=== PATIENT | male | born 1965 | race African-American/Black ===

== ENCOUNTER 2019-09-09 16:53 | Inpatient (IN) ==
--- NOTE | 2019-09-09 18:26 | PROVIDER DOCUMENTATION ---
HPI-Respiratory General - General Chief Complaint: Shortness of Breath Stated Complaint: TROUBLE BREATHING Time Seen by Provider: 09/09/19 17:20 Source: patient Allergies/Adverse Reactions: Patient Allergies Allergy/AdvReac Type Severity Reaction Status Date / Time shellfish derived Allergy SWELLING Verified 09/09/19 18:54 Home Medications: Home Medication List Medication Instructions Recorded Confirmed Last Taken Type Aspirin 81 mg PO DAILY 03/17/19 09/09/19 09/09/19 History Carvedilol [Coreg] 25 mg PO BID 03/17/19 09/09/19 09/09/19 History Losartan [Cozaar] 25 mg PO BID 03/17/19 09/09/19 09/09/19 History Furosemide [Lasix] 40 mg PO DAILY 06/14/19 09/09/19 09/09/19 History Calcium Carbonate/Vitamin D3 1 tab PO DAILY 06/29/19 09/09/19 09/09/19 History [Calcium 600 + Vit D Tablet] Loperamide HCl [Imodium A-D] 2 mg PO DIRECTED 06/29/19 09/09/19 09/09/19 History Diphenoxylate/Atropine [Lomotil] 1 ea PO Q8HR PRN 07/14/19 09/09/19 09/09/19 History Benzonatate [Tessalon Perle] 100 mg PO Q6H PRN PRN 08/20/19 08/20/19 Unknown Hi story Levofloxacin [Levaquin] 500 mg PO DAILY 08/20/19 09/09/19 09/09/19 History Tiotropium Br/Olodaterol HCl 1 inhaler INH BID 09/09/19 09/09/19 09/09/19 History [Stiolto Respimat Inhal [place]] - History of Present Illness-Resp Nature of Presenting Problem: Patient c/o shortness of breath; went to lung doctor and sat there was in the 80s and is suppose to be on oxygen but doesn't have insurance and cannot afford it. Was told that he only has 45% lung function. c/o productive cough; coughing up blood. cancer patient; just finished chemo. patient stated he had history of CHF Quality of Pain: reports: tightness Severity in ED: reports: moderate Onset/Duration: reports: gradual, other (chronic) Timing: reports: still present Exposure: reports: unknown cause Cough Quality/Degree: reports: moderate, productive cough, blood streaked sputum Episode Frequency: chronic episodes Current Respiratory Medication Therapy: Initiated see nurses note Modifying Factors: improves with: exertion, coughing Associated Symptoms: reports: cough, shortness of breath, short of breath Similar Symptoms Previously?: Yes Review of Systems - Adult - REVIEW OF SYSTEMS - ADULT Constitutional: reports: fatique. denies: fever Eyes: reports: no symptoms reported Ears, Nose, Mouth & Throat: reports: no symptoms reported Cardiovascular: reports: see HPI Respiratory: reports: see HPI, cough, dyspnea on exertion, shortness of breath Gastrointestinal: reports: no symptoms reported Genitourinary: reports: no symptoms reported Musculoskeletal: reports: no symptoms reported Integumentary: reports: no symptoms reported Neurological: reports: no symptoms reported Psychiatric: reports: no symptoms reported Endocrine: reports: no symptoms reported Hematologic/Lymphatic: reports: no symptoms reported Allergic/Immunologic: reports: no symptoms reported Past History - Adult - PAST MEDICAL HISTORY-ADULT Review of Records: reports: Nursing Assessment Review, Medications Reviewed, Social history reviewed & non-contributory. Major Childhood Illnesses: reports: denies history Cardiovascular: reports: CHF, HTN Respiratory: reports: sleep apnea Gastrointestinal: reports: denies history Obstetrical/Gynecological: reports: denies history Genitourinary: reports: denies history Musculoskeletal: reports: orthopedic injury Neurological: reports: denies history Endocrine/Immune: reports: denies history Other Conditions: reports: denies history - PRIOR SURGERIES/PROCEDURES Surgical/Procedure History: reports: none - IMMUNIZATION STATUS Childhood Immunizations: See Nurse Assessment Flu Vaccine: See Nurse Assessment - FAMILY HISTORY Family History: reviewed, not pertinent Physical Exam-General - PHYSICAL EXAM-ADULT Initial Vital Signs Reviewed: Yes - CONSTITUTIONAL General Appearance: alert, mild distress, obese - EYES Eyes: PERRL/EOMI, pink conjunctivae - HEAD, EARS, NOSE, MOUTH & THROAT HENMT: normocephalic/atraumatic, moist mucous membranes - NECK Neck: negative: C-spine tenderness, lymphadenopathy - RESPIRATORY Respiratory: decreased breath sounds, rhonchi, other (distant breath sounds, rhonchi). negative: respiratory distress, wheezing - CARDIOVASCULAR Cardiovascular: regular rate, rhythm - GASTROINTESTINAL (ABDOMEN) Abdominal Exam: normal bowel sounds, non tender, soft - MUSCULOSKELETAL Back Exam: no CVA tenderness, no vertebral tenderness Extremity: swelling. negative: calf tenderness, tenderness - SKIN Integumentary: warm/dry. negative: tenderness, zoster-like rash - NEUROLOGIC Neurologic: grossly normal, no motor/sensory deficits - PSYCHIATRIC Psych/Mental Status: normal mood/affect Progress - PLAN OF CARE/RESULTS Progress/Plan/Lab Results: Laboratory Results - last 24 hr 09/09/19 09/09/19 09/09/19 17:19 18:38 18:38 WBC RBC Hgb Hct MCV MCH MCHC RDW Std Deviation Plt Count MPV Immature Gran % (Auto) Neut % (Auto) Lymph % (Auto) [place] % (Auto) Eos % (Auto) Baso % (Auto) Immature Gran # (Auto) Neut # (Auto) Lymph # (Auto) [place] # (Auto) Eos # (Auto) Baso # (Auto) PT INR PTT (Actin FS) Specimen Type Sample Site pH pCO2 pO2 HCO3 Base Excess Oxyhemoglobin ABG O2 Sat (Calculated) ABG O2 Saturation ABG Carboxyhemoglobin ABG Methemoglobin A-a O2 Difference Total Hemoglobin Lactate Liter Flow FiO2 % Sodium Potassium Chloride Carbon Dioxide Anion Gap BUN Creatinine Estimated GFR/1.73 m2 BUN/Creatinine Ratio Glucose Calculated Osmolality Calcium Total Bilirubin AST ALT Alkaline Phosphatase Creatine Kinase 108 Troponin T < 0.010 [id number]-[id number] Pept Total Protein Albumin Globulin Albumin/Globulin Ratio Amylase 116 Lipase Plasma Lactate Urine Source CLEAN CATCH Urine Color YELLOW Urine Clarity CLEAR Urine pH 6.5 Ur Specific [place] 1.000 Urine Protein NEGATIVE Urine Ketones NEGATIVE Urine Blood NEGATIVE Urine Nitrite NEGATIVE Urine Bilirubin NEGATIVE Urine Urobilinogen NORMAL Urine Microscopic RBC Not Reportable Urine WBC NEGATIVE Ur Epithelial Cells <10 Urine Crystals NONE SEEN Urine Bacteria 1+ Urine Casts NONE SEEN Urine Yeast NONE SEEN Urine Glucose NEGATIVE 09/09/19 09/09/19 09/09/19 18:38 18:38 18:38 WBC 11.71 H RBC 3.03 L Hgb 8.3 L Hct 27.7 L MCV 91.4 MCH 27.4 MCHC 30.0 L RDW Std Deviation 17.7 H Plt Count 176 MPV 9.5 Immature Gran % (Auto) 0.1 Neut % (Auto) 81.7 H Lymph % (Auto) 8.6 L [place] % (Auto) 7.3 Eos % (Auto) 2.1 Baso % (Auto) 0.2 Immature Gran # (Auto) 0.01 Neut # (Auto) 9.57 H Lymph # (Auto) 1.01 L [place] # (Auto) 0.85 H Eos # (Auto) 0.25 Baso # (Auto) 0.02 PT INR PTT (Actin FS) Specimen Type Sample Site pH pCO2 pO2 HCO3 Base Excess Oxyhemoglobin ABG O2 Sat (Calculated) ABG O2 Saturation ABG Carboxyhemoglobin ABG Methemoglobin A-a O2 Difference Total Hemoglobin Lactate Liter Flow FiO2 % Sodium 136 Potassium 4.0 Chloride 101 Carbon Dioxide 23 L Anion Gap 12 BUN 17 Creatinine 0.9 Estimated GFR/1.73 m2 > 60 BUN/Creatinine Ratio 19 Glucose 97 Calculated Osmolality 273 Calcium 9.3 Total Bilirubin 1.30 H AST 37 H ALT 9 L Alkaline Phosphatase 73 Creatine Kinase Troponin T [id number]-Qgvijmmhkwk Pept 2610 H Total Protein 7.4 Albumin 3.7 Globulin 4.0 Albumin/Globulin Ratio 1.0 Amylase Lipase 12 L Plasma Lactate Urine Source Urine Color Urine Clarity Urine pH Ur Specific [place] Urine Protein Urine Ketones Urine Blood Urine Nitrite Urine Bilirubin Urine Urobilinogen Urine Microscopic RBC Urine WBC Ur Epithelial Cells Urine Crystals Urine Bacteria Urine Casts Urine Yeast Urine Glucose 09/09/19 09/09/19 09/09/19 18:38 18:38 21:49 WBC RBC Hgb Hct MCV MCH MCHC RDW Std Deviation Plt Count MPV Immature Gran % (Auto) Neut % (Auto) Lymph % (Auto) [place] % (Auto) Eos % (Auto) Baso % (Auto) Immature Gran # (Auto) Neut # (Auto) Lymph # (Auto) [place] # (Auto) Eos # (Auto) Baso # (Auto) PT 14.2 INR 1.05 PTT (Actin FS) 36.1 Specimen Type ARTERIAL Sample Site L RADIAL pH 7.49 H pCO2 37 pO2 49 L* HCO3 28.4 H Base Excess 4.6 H Oxyhemoglobin 86.4 L* ABG O2 Sat (Calculated) 10.5 L ABG O2 Saturation 91.9 L ABG Carboxyhemoglobin 5.00 H ABG Methemoglobin 1.1 A-a O2 Difference 119.0 Total Hemoglobin 8.6 L Lactate 1.10 Liter Flow 2.5 FiO2 % 30.0 Sodium Potassium Chloride Carbon Dioxide Anion Gap BUN Creatinine Estimated GFR/1.73 m2 BUN/Creatinine Ratio Glucose Calculated Osmolality Calcium Total Bilirubin AST ALT Alkaline Phosphatase Creatine Kinase Troponin T [id number] Pept Total Protein Albumin Globulin Albumin/Globulin Ratio Amylase Lipase Plasma Lactate 1.1 Urine Source Urine Color Urine Clarity Urine pH Ur Specific [place] Urine Protein Urine Ketones Urine Blood Urine Nitrite Urine Bilirubin Urine Urobilinogen Urine Microscopic RBC Urine WBC Ur Epithelial Cells Urine Crystals Urine Bacteria Urine Casts Urine Yeast Urine Glucose Orders Category Date Time Status Admit - [facility] Routine AdmDCTranf 09/09/19 22:22 Active Saline Loc DIRECTED Care 09/09/19 18:19 Active NPO Diet 09/09/19 18:19 Active CHEST-PORTABLE [RAD] Stat Exams 09/09/19 18:20 Completed CTA [CT ANGIOGRM PULMONARY ARTERIES] [CT] Stat Exams 09/09/19 19:59 Completed ABG [RESP] Routine Lab 09/09/19 21:49 Results AMYLASE [CHEM] Stat Lab 09/09/19 18:38 Completed BLOOD CULTURE [BLDCUL] Stat Lab 09/09/19 18:38 Results BNP [PRO B-NATRIURETIC PEPTIDE] Stat Lab 09/09/19 18:38 Completed CBC WITH ELECTRONIC DIFF [HEME] Stat Lab 09/09/19 18:38 Completed CK PROFILE [SP CHEM] Stat Lab 09/09/19 18:38 Completed COMPREHENSIVE METABOLIC PANEL [CHEM] Stat Lab 09/09/19 18:38 Completed LACTATE, PLASMA [CHEM] Q3H Lab 09/09/19 18:38 Completed LIPASE [CHEM] Stat Lab 09/09/19 18:38 Completed PROTIME WITH INR [COAG] Stat Lab 09/09/19 18:38 Completed PTT [COAG] Stat Lab 09/09/19 18:38 Completed TROPONIN T Stat Lab 09/09/19 18:[address] W/POSS RFLX CULT [URINALYSIS] Stat Lab 09/09/19 17:19 Completed Furosemide [Lasix] Med 09/09/19 21:53 Discontinued 40 mg IV NOW ONE Piperacillin/Tazobactam [Zosyn] 3.375 gm Med 09/09/19 21:53 Discontinued 0.9% Sodium Chloride Inj [Ns] 50 ml IV NOW Vancomycin 1 gm/Ns Med 09/09/19 21:53 Discontinued 1 gm in 250 ml IV NOW Transfer/Admit Order [TRANSFER] Routine Transfer 09/09/19 22:23 Completed Result Diagrams: 09/09/19 18:38 09/09/19 18:38 - CONSULTS/PCP/HOSPITALIST Notification #1 *Consult/PCP/Hospitalist*: Dr Hanson Reason/Comments: asked that pt be transfered to General #2 Consult: Dr Jauregui Time Discussed: 21:57 Reason/Comments: to ICU Consult Disposition: Admit - CHANGE OF SHIFT REPORT (ED Provider) 1 Report Given and Care Transferred to:: Dr Kurtz Time of Transfer: 20:00 Items Pending: CT/MRI Results (CTA and pending admission) Departure - Departure Date of Disposition Decision: 09/09/19 Time of Disposition Decision: 21:58 DIAGNOSIS: ARDS (adult respiratory distress syndrome), Pulmonary edema, CHF (congestive heart failure), Dyspnea Disposition: ADMITTED INPATIENT 09 Certified Medical Emergency: Emergent Condition: Serious - Critical Care Note This patient required my direct & personal management of CC.: Yes Total Time (mins): 35 Critical Care Statement: This patient required my direct personal management to treat or rule out processes, the absence of which, could potentiallly result in sudden, clinically significant life or limb threatening deterioration. Attestation - Physician/ ELLIOTT Attestation Patient care was provided by Advanced Practice Provider:: No The physician spent face to face time with patient:: Yes Advanced Practice Provider documentation review:: Supervising physician onsite and consulted in the evaluation and care of this patient. The physician did have a face to face encounter with the patient.
[2019-09-09 19:10] LABS: BASO# 0.02 X1000 (0.0-0.2); BASO% 0.2 % (0.0-0.8); EOS# 0.25 X1000 (0.0-0.7); EOS% 2.1 % (0.0-10.0); HEMATOCRIT 27.7 % (42.0-52.0); HEMOGLOBIN 8.3 g/dL (14.0-18.0); IMM GRAN# 0.01 X1000 (0.0-0.04); IMM GRAN% 0.1 % (0.0-0.5); LYMPH# 1.01 X1000 (1.2-3.4); LYMPH% 8.6 % (20.5-51.1); MCH 27.4 PG (27-31); MCV 91.4 FL (81-99); MONO# 0.85 X1000 (0.11-0.59); MONO% 7.3 % (1.7-9.3); MPV 9.5 FL (7.4-10.4); NEUT# 9.57 X1000 (1.4-6.5); NEUT% 81.7 % (42.2-75.2); PLT 176 X1000 (130-400); RBC 3.03 XMIL (4.7-6.1); RDW 17.7 % (11.5-14.5); WBC 11.71 X1000 (4.8-10.8)
--- NOTE | 2019-09-09 19:34 | Diag Imaging Result Doc PS360 ---
EXAM: CHEST-PORTABLE INDICATION: shortness of breath TECHNIQUE: One view COMPARISON: 08/19/2019 FINDINGS: There is severe bilateral airspace consolidations throughout both lungs but most significant at the mid and lower lung zones. This is worse than on the previous study. There is no large pleural fluid collection or pneumothorax. Cardiac silhouette is stable. IMPRESSION: Severe bilateral airspace consolidations indicating pneumonia +/- edema. Electronically signed by Terry Jackson 09/09/2019 7:32 PM
[2019-09-09 19:36] LABS: BILIRUBIN URINE NEGATIVE (NEGATIVE); BLOOD URINE NEGATIVE (NEGATIVE); CLARITY CLEAR (CLEAR); COLOR YELLOW; GLUCOSE URINE NEGATIVE (NEGATIVE); KETONE URINE NEGATIVE (NEGATIVE); LEUKOCYTES URINE NEGATIVE (NEGATIVE); NITRITE URINE NEGATIVE (NEGATIVE); PH URINE 6.5; PROTEIN URINE NEGATIVE (NEGATIVE); UROBILINOGEN URINE NORMAL
[2019-09-09 19:39] LABS: URINE BACTERIA 1+ /HFP; URINE CAST NONE SEEN /LPF; URINE CRYSTAL NONE SEEN /HPF; URINE EPITHELIAL CELLS <10 /HPF (<10); URINE SOURCE CLEAN CATCH; URINE YEAST NONE SEEN /HPF
[2019-09-09 19:47] LABS: AGAP 12; ALBUMIN 3.7 g/dL (3.5-5.0); ALKALINE PHOSPHATASE 73 U/L (32-122); BUN 17 mg/dL (8-22); CALCIUM 9.3 mg/dL (8.8-10.2); CHLORIDE 101 mmol/L (98-107); COSMO 273; CREATININE 0.9 mg/dL (0.7-1.2); ESTIMATED GFR > 60; GLUCOSE 97 mg/dL (70-104); GOT 37 U/L (10-34); GPT 9 U/L (10-44); LIPASE 12 U/L (13-60); SODIUM 136 mmol/L (136-145); TCO2 23 mmol/L (25-35); TOTAL PROTEIN 7.4 g/dL (6.3-8.3)
[2019-09-09 19:48] LABS: AMYLASE 116 U/L (20-200); CK PROFILE 108 U/L (24-204)
[2019-09-09 20:43] LABS: INR 1.05; PROTIME 14.2 Seconds (11.0-16.0); PTT 36.1 Seconds (22.3-41.8)
--- NOTE | 2019-09-09 21:17 | Diag Imaging Result Doc PS360 ---
EXAM: CT ANGIOGRM PULMONARY ARTERIES INDICATION: rule out PE TECHNIQUE: This exam was performed using automated exposure control, adjustment of mA or kV according to patient size, and/or use of iterative reconstruction technique. Thin section axial images and 3-D MIPS were obtained. COMPARISON: 08/26/2019 FINDINGS: There is no evidence of pulmonary embolism. There is no evidence of aortic dissection or aneurysm. There is cardiomegaly. There are calcified mediastinal lymph nodes indicating prior granulomatous disease. No new lymphadenopathy is appreciated. There are severe diffuse airspace consolidations bilaterally throughout both lungs with a mid and lower lung zone predominance. This was also seen on the previous study. However, it has worsened, especially on the left. ARDS should be considered. There is trace pleural fluid on the right. There is no pneumothorax. Limited views of the upper abdomen are essentially unremarkable. IMPRESSION: 1.Severe diffuse airspace consolidations bilaterally that have worsened since the previous study. Consider ARDS. 2.No evidence of pulmonary embolism. Electronically signed by Terry Jackson 09/09/2019 9:15 PM
[2019-09-09] MEDS ORDERED: LASIX IV ONE (21:53)
[2019-09-09] MEDS ORDERED: VANCOMYCIN 1 GM/NS 1 GM/250 ML IVPB IV ONE (21:53)
[2019-09-09] MEDS ORDERED: ZOSYN 3.375 GM in NS 50 ML IV ONE (21:53)
[2019-09-09 22:11] LABS: BE 4.6 mmoll (-3.0-3.0); BLOOD TYPE ARTERIAL; HCO3-(ACT) 28.4 mmoll (20.0-26.0); METHB 1.1 % (0.0-1.5); O2(CT) 10.5 mL/dL (15.0-23.0); PCO2(98.6) 37 mmHg (35-45); PO2(98.6) 49 mmHg (60-100); SAMPLE BLOOD; SAO2 91.9 % (95.0-100.0); THB 8.6 g/dL (11.5-17.4); pH(98.6) 7.49 (7.35-7.45)
[2019-09-09 22:16] LABS: O2HB 86.4 % (95.0-99.0)
[2019-09-09] MEDS ORDERED: TYLENOL ONE (23:46)
[2019-09-09] MEDS ORDERED: TYLENOL PO ONE (23:48)
[2019-09-10] MEDS ORDERED: TYLENOL PO PRN (01:22)
[2019-09-10] MEDS ORDERED: ZOFRAN IV PRN (01:22)
[2019-09-10] MEDS ORDERED: VANCOMYCIN IV PER PHARMACY MISC SCH (01:30)
[2019-09-10] MEDS: SOLU-MEDROL IV SCH ×2 (02:15→08:47)
[2019-09-10] MEDS: DUONEB (A & A) INH SCH ×6 (03:22→23:18)
[2019-09-10] MEDS ORDERED: VANCOMYCIN 1 GM/NS 1 GM/250 ML IVPB IV ONE (03:30)
[2019-09-10] MEDS: ZOSYN 3.375 GM in NS 50 ML IV SCH ×4 (03:53→21:30)
--- NOTE | 2019-09-10 04:41 | HISTORY AND PHYSICAL ---
PRIMARY CARE PHYSICIAN: None. CHIEF COMPLAINT: Shortness of breath and coughing up blood. HISTORY OF PRESENTING ILLNESS: A 53-year-old male with a history of testicular cancer, CHF, hypertension, who initially had presented to [facility] due to complaint shortness of breath that has been going on for several weeks. The patient states that he was also coughing up blood. The patient also states that he had seen a obstetrics scrub nurse and had some spirometry done recently but he did know the results. He was evaluated in the ED there. He had imaging done which did show severe diffuse airspace consolidations bilaterally with consideration of possible ARDS. Due to lack of subspecialist care there, he was transferred to [facility] for further management. At the time of my examination, patient states that he is still short of breath. He denied any chest pain, fever, chills or any weight changes, but complained that he was coughing up blood and short of breath. PAST MEDICAL HISTORY: Includes testicular cancer, CHF, hypertension. PAST SURGICAL HISTORY: Left knee surgery, left testicle removed. ALLERGIES: Shellfish. CURRENT MEDICATIONS: Aspirin 81 mg p.o. daily, carvedilol 25 mg p.o. b.i.d., Lasix 40 mg p.o. daily, losartan 25 mg p.o. b.i.d. SOCIAL HISTORY: He is a former smoker. Denies any history of alcohol or illicit drug use. FAMILY HISTORY: No history of coronary disease. REVIEW OF SYSTEMS: Fourteen point review of system as listed in HPI. Other systems negative. PHYSICAL EXAMINATION: GENERAL: The patient is resting more comfortably. VITAL SIGNS: Temperature 97.9 degrees, pulse 101, respirations 24, blood pressure 153/111. HEENT: Atraumatic, normocephalic. Extraocular movements intact. PERRLA. NECK: No masses. CHEST: Rhonchi. CARDIOVASCULAR: Regular rate and rhythm. ABDOMEN: Soft. Positive bowel sounds. EXTREMITIES: Trace edema. NEUROLOGIC: He is awake, alert, oriented x3. GENITOURINARY: No bladder distention. SKIN: Warm. LABORATORIES AND STUDIES: WBC 11.71, hemoglobin 8.3, hematocrit 27.7, platelets 176,000. Blood gas shows a pH of 7.49, PO2 of 49. Sodium 136, potassium 4.0, chloride 101, CO2 is 23, BUN is 17, creatinine 0.9, glucose 97. ProBNP is 2610. Plasma lactate 1.1. Pulmonary arteriogram shows severe diffuse airspace consolidation with consideration of ARDS. No evidence of pulmonary embolism. ASSESSMENT: This is a 53-year-old male with a history of testicular cancer, congestive heart failure, hypertension, who had presented to emergency department with several weeks history of worsening shortness of breath. The patient states that he was recently coughing up blood. He was initially evaluated at [facility] and then transferred to [facility] due to lack of subspecialist care. 1. Acute hypoxemic respiratory failure. 2. Suspected acute respiratory distress syndrome. 3. Chronic obstructive pulmonary disease. 4. Hemoptysis. 5. Congestive heart failure, unspecified. 6. Hypertension. PLAN: 1. The patient will be admitted to ICU. 2. We will continue with supplemental oxygen. 3. We will check blood cultures. Start patient on empiric antibiotics. 4. We will continue with DuoNebs. 5. Consult Pulmonology. 6. We will continue with gentle diuresis with Lasix. 7. We will monitor blood pressure closely. 8. We will put patient on DVT prophylaxis with SCDs. 9. We will continue to follow, and reassess and make further recommendation based on patient's clinical course. cc: Dale Jauregui MD
[2019-09-10] MEDS: COREG PO SCH ×2 (08:47→20:24)
[2019-09-10] MEDS ORDERED: ASPIRIN PO SCH (09:00)
[2019-09-10] MEDS ORDERED: COZAAR PO SCH (09:00)
[2019-09-10] MEDS ORDERED: LASIX IV SCH (10:00)
[2019-09-10] MEDS ORDERED: LASIX IV ONE (10:15)
[2019-09-10 10:46] LABS: HEMATOCRIT 29.9 % (42.0-52.0); HEMOGLOBIN 9.1 g/dL (14.0-18.0); LYMPH# 0.43 X1000 (1.2-3.4); LYMPH% 5.6 % (20.5-51.1); MCH 27.9 PG (27-31); MCHC 30.4 g/dL (33-37); MCV 91.7 FL (81-99); MONO# 0.06 X1000 (0.11-0.59); MONO% 0.8 % (1.7-9.3); MPV 9.2 FL (7.4-10.4); NEUT% 93.6 % (42.2-75.2); PLT 170 X1000 (130-400); RBC 3.26 XMIL (4.7-6.1); RDW 17.4 % (11.5-14.5); WBC 7.69 X1000 (4.8-10.8)
[2019-09-10 10:52] LABS: IRON SATURATION 10 %; TIBC 229 ug/dL; TOTAL IRON 22 ug/dL (53-167); UNBOUND IRON 207 ug/dL (112-346)
[2019-09-10] MEDS: VANCOMYCIN 2,000 MG in NS 500 ML IV SCH ×2 (10:59→23:52)
--- NOTE | 2019-09-10 11:09 | PROGRESS NOTE ---
DATE: 09/10/2019 INTERVAL HISTORY: Mr. Ayon was admitted for acute hypoxic respiratory failure and bilateral lung infiltrate. He states that he has also been having hemoptysis, last episode was day before yesterday. He had noticed some swelling of bilateral lower extremities as well. His shortness of breath has been progressively worsening since last few weeks. He denies being diagnosed with COPD. However, his pulmonary function test in May had restrictive physiology. Currently, he is feeling slightly better than he did yesterday. PHYSICAL EXAMINATION: Temperature 97.3 degrees, pulse 89, respiratory rate 20 blood pressure 139, 95, saturating 99% on 2 L nasal cannula. Not in any acute distress oral cavity is moist. He has bilateral adequate air entry. Inspiratory crackles in infrascapular region. S1, S2 normal. No murmur or gallop. Abdomen: Soft, nontender. No lower extremity edema. He is alert and oriented x3 labs. Input and output he has 700 mL output so far today. LABS: Repeat CBC is pending. BMP was essentially unremarkable. ASSESSMENT AND PLAN: 1. Acute hypoxic respiratory failure due to bilateral lung infiltrate. Differential being acute pulmonary edema versus pneumonia. 2. Acute systolic and diastolic congestive heart failure exacerbation. 3. Hemoptysis, which could be in the setting of bilateral pneumonia versus pulmonary edema for which I am holding his aspirin. 4. Active tobacco abuse. 5. Recently diagnosed testicular cancer with intra-abdominal lymphadenopathy, on chemotherapy. The last chemotherapy was 3 weeks ago. 6. Coronary artery disease. PLAN: 1. I will start patient on intravenous Lasix, albuterol ipratropium nebulization, intravenous antibiotics and follow up blood cultures, sputum culture and urine antigen. 2. I will continue patient on his home medications of beta mauro as well as losartan and will start back on aspirin once his hemoptysis is better for his history of coronary artery disease, which was managed medically as well as combined systolic and diastolic congestive heart failure. 3. Deep venous thrombosis prophylaxis, mechanical devices. DISPOSITION: I will continue to monitor patient in the intensive care unit for 24 hours. I will follow up with repeat ABG. Plan of care discussed with him. His questions were answered. cc: MD YFN Shahid
[2019-09-10 11:18] LABS: FERRITIN 1766 ng/mL (30-400)
[2019-09-10 11:23] LABS: BANDS 1 % (0-1); LYMPHS 4 % (21-51); SEGS 95 % (42-75)
--- NOTE | 2019-09-10 12:43 | EKG Report ---
Test Performed on : 09/10/2019 10:41:34 AM Test Reason : Evaluate for ST T changes Blood Pressure : / mmHG Vent. Rate : 085 BPM Atrial Rate : 085 BPM P-R Int : 210 ms QRS Dur : 098 ms QT Int : 414 ms P-R-T Axes : 039 -36 065 degrees QTc Int : 492 ms Sinus rhythm. with 1st degree AV block. Possible Left atrial enlargement Left axis deviation Nonspecific T wave abnormality Prolonged QT Abnormal ECG When compared with ECG of 17-MAR-2019 09:22, Criteria for Inferior infarct are no longer present Nonspecific T wave abnormality has replaced inverted T waves in Lateral leads Confirmed by Bob Ayers MD ([id number]) on 09/10/2019 3:08:09 PM
[2019-09-10] MEDS: LASIX IV SCH ×2 (15:55→21:30)
--- NOTE | 2019-09-10 17:01 | HEMO/ONC CONSULTATION ---
DATE: 09/10/2019 ADMITTING/REQUESTING PHYSICIAN: Dr. Dale Jauregui We appreciate this consult. CHIEF COMPLAINT: Testicular cancer. HISTORY OF PRESENT ILLNESS: Mr. Ayon is a 53-year-old, male, well known to Dr. 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 The patient's last CT of his chest and MRI revealed no evidence of disease. The patient presented to [facility] secondary to worsening shortness of breath and coughing up blood. Imaging revealed severe diffuse airspace consolidations bilaterally with possible capital ARDS. The patient was transferred to [facility] ICU for more acute care and we are consulted as the patient is well known to us. PAST MEDICAL HISTORY: 1. One congestive heart failure. 2. Hypertension. 3. Testicular cancer. PAST SURGICAL HISTORY: 1. Left knee surgery. 2. Left orchialgia me. SOCIAL HISTORY: The patient is a former smoker. He does not use alcohol or illicit drugs. FAMILY HISTORY: Negative for hematologic or oncologic disease. MEDICATIONS ON ADMISSION: 1. Aspirin 81 mg. 2. Carvedilol. 3. Lasix. 4. Losartan. ALLERGIES: Are to shellfish. REVIEW OF SYSTEMS: A 14 point review of systems was obtained and is negative except for mentioned in HPI. PHYSICAL EXAM: Mr. Ayon is a pleasant 53-year-old male lying supine in bed in no immediate distress.Vital Signs: Temperature 97.3, blood pressure 139/87, heart rate 89, respirations 18, O2 saturation 96% on 2 L nasal cannula O2. HEENT: Normocephalic, atraumatic. Mucous membranes are slightly pale and moist. Sclerae anicteric. Extraocular movements intact. Neck: Supple. Lungs: Clear to auscultation bilaterally at this time. CV: S1-S2 is heard without murmur rub or gallop. Abdomen: Nondistended. Extremities: Without clubbing, cyanosis, or edema. Dermatologic: No rashes, bruises or lesions. Neurologic: The patient is awake, alert, oriented x3. He has no focal deficits. LABORATORY DATA: Hemoglobin 9.1, hematocrit 29.9, white blood cell count 7.69, platelets 170,000. On 09/09 sodium 136, potassium 4, chloride 101, CO2 is 23, BUN 17, creatinine 0.9, glucose is 97. Urinalysis is negative for UTI. IMAGING STUDIES: CTA reveals questionable ARDS with no pulmonary embolism observed. ASSESSMENT AND PLAN: 1. T2N1 mixed germ cell tumor status post [address] Last [address] of the chest and MRI reveal no evidence of disease. 2. Acute hypoxemic respiratory failure with questionable acute respiratory distress syndrome, chronic obstructive pulmonary disease, hemoptysis. The patient is being followed by pulmonology at this time. 3. Congestive heart failure. Currently on diuretics. 4. We will follow along with you and make further recommendations pending outcomes. 5. The above reflects the history, exam, assessment and plan of Dr. Farooq. Dictated by TAHIR Crawford for Mukesh Farooq MD cc: TAHIR Crawford MD
[2019-09-10 17:30] LABS: UR AMPHETAMINES QUAL NONE DETECTED (NONE DETECT); UR BARBITUATES QUAL NONE DETECTED (NONE DETECT); UR BENZODIAZEPIN QUAL NONE DETECTED (NONE DETECT); UR CANNABINOIDS QUAL NONE DETECTED (NONE DETECT); UR COCAINE QUAL NONE DETECTED (NONE DETECT); UR METHADONE QUAL NONE DETECTED (NONE DETECT); UR OPIATES QUAL NONE DETECTED (NONE DETECT); UR OXYCODONE QUAL NONE DETECTED (NONE DETECT); UR PCP QUAL NONE DETECTED (NONE DETECT)
--- NOTE | 2019-09-10 18:10 | ECHO REPORT ---
ORDER DATE: 09/10/2019 INTERPRETING PHYSICIAN: Maxi Flowers MD INDICATION: Patient with shortness of breath, CHF, hypertension, and COPD. M-MODE MEASUREMENTS: Left ventricle end diastole: 5.9 cm. Left ventricle end systole: 4.3 cm. Posterior wall: 1.1 cm. Interventricular septum: 1.1 cm. Left atrium: 5.6 cm. Aortic diameter: 3.4 cm. SUMMARY OF 2-DIMENSIONAL IMAGIN. The left ventricular function is normal. Ejection fraction of 57%. The study was somewhat difficult. Optison was added to optimize visualization of endocardium. 2. The left atrium is significantly dilated. 3. The right-sided chambers appear to be normal. 4. The tricuspid valve shows mild to moderate degree of regurgitation. 5. The pulmonary pressure is estimated at 63 mmHg. 6. The aortic valve looks grossly normal. Color flow mapping unremarkable. 7. The mitral valve shows moderate degree of regurgitation. 8. The pulmonic valve is grossly unremarkable. 9. There is no pericardial effusion, no mass, and no thrombus. CONCLUSIONS: In summary, this study shows 1. Normal left ventricular systolic function with ejection fraction of 57%. 2. Unremarkable aortic valve. 3. Significantly enlarged left atrium. 4. Pulmonary pressure is estimated at 63 mmHg. 5. There is some enlargement of the right ventricle. 6. There is no pericardial effusion. 7. There is moderate degree of mitral regurgitation. 8. The diastolic function appears to be normal. 9. Pulsed wave Doppler of mitral inflow shows normal E/A ratio and the tissue Doppler of the septal and lateral mitral annulus averages 12 cm. 10.Pulmonary venous flow is normal. Clinical correlation is recommended. cc: MD Dale Plasencia MD
--- NOTE | 2019-09-10 21:57 | PULMONOLOGY CONSULTATION ---
DATE: 09/10/2019 REASON FOR CONSULTATION: Respiratory failure and ARDS. HISTORY OF PRESENT ILLNESS: Mr. Ayon is a 53-year-old black male with ongoing tobacco use, coronary artery disease, history of testicular cancer without evidence of disease by his report, who recently completed chemotherapy. The patient has coronary artery disease and cardiomyopathy with an ejection fraction in the 30% range. He has had increasing shortness of breath over the last 2 weeks. He also had increasing lower extremity edema and has been followed by Dr. Jesse Rehman. The patient reports he increased his Lasix dosing with some improvement in his lower extremity edema, but he continued to have increasing shortness of breath. The patient was being evaluated at the lung doctor. His oxygen saturations were in the 80s and he has 45% lung function by report. He has had intermittent hemoptysis associated with heavy coughing. He was referred to the emergency room. PAST MEDICAL HISTORY: Problem list: 1. Coronary artery disease. On cardiac catheterization 03/18/2019, the LAD had a 40% midvessel stenosis. The circumflex was occluded proximally. There was blood flow distally from LAD collaterals. The right coronary artery has a 30% proximal stenosis. The distal right coronary artery has a 90% focal stenosis before the PDA. The PDA is occluded. 2. Hypertension. 3. History of cocaine abuse/use. 4. Testicular cancer as above. SOCIAL HISTORY: The patient continues to have occasional tobacco use. The patient reports he is not using cocaine. FAMILY HISTORY: Not contributory to current presentation. PHYSICAL EXAMINATION: Physical exam reveals an obese black male on 1 L per nasal cannula with an oxygen saturation of 93%.HEENT: Pupils are equal and reactive. Oropharynx appears clear. Neck is supple. Chest reveals diminished breath sounds bilaterally, but more prominent at the right base. Cardiac exam: S1, S2. Abdomen is soft. Extremities reveal no significant edema. DIAGNOSTIC DATA: Chest x-ray reveals bilateral infiltrates. CT scan of the thorax reveals bilateral ground-glass changes which have worsened compared to 08/26/2019. There is trace right-sided pleural effusion which has decreased compared to 09/30/2018. IMPRESSION: A 53-year-old with history of testicular cancer who presents with: 1. Pulmonary edema. 2. Mild hypoxemic respiratory failure. 3. Hemoptysis. 4. Tobacco use. 5. Coronary artery disease with left ventricular dysfunction. DISCUSSION: A 53-year-old with problems outlined above. He denies fevers, chills, cough or other symptoms of an active infection. He had mild to moderate hypertension on presentation to the emergency room. He had history of cocaine in the past but not recently. I agree with broad- spectrum antibiotics pending clinical improvement, but suspect that his presentation is most consistent with pulmonary edema. He has no significant hematuria, but I will send appropriate studies for hemoptysis. PLAN: 1. Continue diuresis. 2. Minimize oxygen use, given history of bleomycin for testicular cancer (suspected but not documented). 3. Caution the patient about cocaine use or tobacco use in the future. 4. Additional evaluation pending clinical course. cc: Juventino Santos MD
[2019-09-10] MEDS: LOMOTIL PO PRN (23:52)
[2019-09-11] MEDS: DUONEB (A & A) INH SCH ×6 (03:21→23:09)
[2019-09-11 04:37] LABS: ALLEN TEST YES; BE 5.5 mmoll (-3.0-3.0); BLOOD TYPE ARTERIAL; HCO3-(ACT) 29.2 mmoll (20.0-26.0); O2(CT) 12.1 mL/dL (15.0-23.0); O2HB 95.1 % (95.0-99.0); PCO2(98.6) 35 mmHg (35-45); PO2(98.6) 100 mmHg (60-100); SAMPLE BLOOD; SAO2 98.8 % (95.0-100.0); THB 8.9 g/dL (11.5-17.4); pH(98.6) 7.52 (7.35-7.45)
[2019-09-11 04:39] LABS: MODALITY CANNULA
[2019-09-11] MEDS: ZOSYN 3.375 GM in NS 50 ML IV SCH ×4 (05:52→21:46)
[2019-09-11] MEDS: LASIX IV SCH (05:52)
[2019-09-11 06:36] LABS: HEMATOCRIT 27.7 % (42.0-52.0); HEMOGLOBIN 8.7 g/dL (14.0-18.0); IMM GRAN# 0.03 X1000 (0.0-0.04); IMM GRAN% 0.2 % (0.0-0.5); LYMPH# 1.24 X1000 (1.2-3.4); LYMPH% 8.5 % (20.5-51.1); MCH 28.9 PG (27-31); MCHC 31.4 g/dL (33-37); MONO# 1.22 X1000 (0.11-0.59); MONO% 8.3 % (1.7-9.3); MPV 9.8 FL (7.4-10.4); NEUT# 12.18 X1000 (1.4-6.5); PLT 185 X1000 (130-400); RBC 3.01 XMIL (4.7-6.1); RDW 17.3 % (11.5-14.5); WBC 14.67 X1000 (4.8-10.8)
[2019-09-11 07:05] LABS: AGAP 13; BUN 30 mg/dL (8-22); CALCIUM 8.6 mg/dL (8.8-10.2); CHLORIDE 96 mmol/L (98-107); COSMO 275; CREATININE 1.4 mg/dL (0.7-1.2); ESTIMATED GFR > 60; GLUCOSE 109 mg/dL (70-104); MAGNESIUM 1.7 mg/dL (1.5-2.7); POTASSIUM 3.6 mmol/L (3.5-5.1); SODIUM 134 mmol/L (136-145); TCO2 25 mmol/L (25-35)
--- NOTE | 2019-09-11 07:13 | Diag Imaging Result Doc PS360 ---
EXAM: CHEST-PORTABLE HISTORY: abnormal exam TECHNIQUE: Chest single view COMPARISON: 09/09/2019 FINDINGS: The lungs are well expanded. The heart remains enlarged. There are dense bilateral infiltrates/pulmonary edema. Small right pleural effusion. IMPRESSION: No interval improvement Electronically signed by Alan Garcia 09/11/2019 7:10 AM
[2019-09-11] MEDS: KLOR-CON PO SCH ×2 (08:16→11:28)
[2019-09-11] MEDS: MAGNESIUM SULFATE 2 GM/S.W.I. 2 GM/50 ML IVPB IV SCH ×2 (08:17→10:15)
[2019-09-11] MEDS: COZAAR PO SCH (08:17)
[2019-09-11] MEDS: COREG PO SCH ×2 (08:17→21:46)
[2019-09-11] MEDS: SOLU-MEDROL IV SCH (08:21)
--- NOTE | 2019-09-11 08:44 | PROGRESS NOTE ---
DATE: 09/11/2019 INTERVAL HISTORY: No acute events overnight. He still was short of breath and had an episode of hemoptysis as per the nursing report, however patient denies it. We discussed about continued bilateral lung infiltrate. We also discussed about the possibility of bleomycin-induced lung toxicity, answered all of his questions currently. VITALS: Temperature of 98.1 degrees, pulse 85, respiratory 22, blood pressure 120/76, saturating 95% on 2 L nasal cannula. PHYSICAL EXAMINATION: General: Does not appear in any acute distress. Oral cavity: Moist. Lungs: Air entry bilaterally equal in suprascapular region. Decreased air entry with inspiratory crackles, bilateral infrascapular region. No wheezes. Heart: S1, S2 normal. Regular. No murmur, rub, or gallop. Abdomen: Soft, obese, nontender. Extremities: No lower extremity edema. Neurologic: He is alert, oriented x3. Input and output suggests negative 2.3 L so far. LABS: Suggestive of leukocytosis, normocytic anemia, 0% eosinophil count. ABG suggestive of improvement in PO2 on nasal cannula, hyponatremia, hypochloremia, elevated BUN and creatinine, likely in the setting of Lasix use. Hypomagnesemia and hypokalemia currently being repleted. His iron panel had normal vitamin B 12 and folate level. His proBNP was 2600. MICROBIOLOGY: Sputum culture is in the lab. Blood culture was growing coagulase-negative Staphylococcus, likely a contaminant since only 1 of them was positive. X-RAYS: Chest x-ray today morning suggests no interval improvement. ASSESSMENT AND PLAN: 1. Acute hypoxic respiratory failure due to bilateral lung infiltrate. His lung picture did not improve despite almost 4.5 liters of urine output. Differential includes atypical pneumonia versus bleomycin-induced lung toxicity. I will keep him on intravenous antibiotics. Follow up sputum culture results. Start him on intravenous steroids. Appreciate Pulmonology recommendation for further management. 2. Hemoptysis, which could be in the setting of bilateral pneumonia versus pulmonary edema. I am holding his aspirin for now and will give him mechanical deep vein thrombosis prophylaxis with intermittent pneumatic compression. 3. History of coronary artery disease with mild systolic and diastolic congestive heart failure. Currently, his echocardiogram appears to be within acceptable range without significant systolic or diastolic dysfunction. I will continue his home carvedilol and losartan, and we will add back aspirin as needed. Previously, his LDL cholesterol was less than 100 and total was 154. He is not listed to be taking any statin at home. 4. 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 Oncology on board. His treatment is currently on hold since he showed good improvement. DISPOSITION: I continued to monitor patient in ICU for persistent hypoxia. Plan of care discussed with him. His questions have been answered. cc: Ceferino Raymond MD
[2019-09-11] MEDS: VANCOMYCIN 2,000 MG in NS 500 ML IV SCH (12:54)
--- NOTE | 2019-09-11 15:59 | PULMONOLOGY PROGRESS NOTE ---
DATE: 09/11/2019 SUBJECTIVE: The patient is awake and alert. He reports he can take a deeper breath than yesterday. He did get winded when he sat on the side of the bed. OBJECTIVE: Vital Signs: The patient has been afebrile for the last 24 hours. Blood pressure 103/64, heart rate 85, respiratory rate 23, oxygen saturation 93% on 1 L per nasal cannula. HEENT: Pupils are equal and reactive. Oropharynx appears clear. Neck: Supple. Chest: Crackles bilaterally. Cardiac: S1, S2. Abdomen: Obese and soft. Extremities: Without edema. LABORATORIES: Chest x-ray reveals patchy bilateral infiltrates without improvement. IMPRESSION: A 53-year-old with: 1. Acute hypoxemic respiratory failure. 2. Hemoptysis, which has resolved. 3. Pulmonary edema with normal ejection fraction. 4. Tobacco use. 5. Significant coronary artery disease. DISCUSSION: A 53-year-old with problems outlined above. His chest x-ray has not improved with diuresis, but I suspect that he may have had some acute pulmonary edema with possible bleeding. This should improve over the next 24 to 48 hours. If it does not, his differential will be expanded. RECOMMENDATION: 1. Hold additional diuresis. 2. Minimize oxygen use to prevent bleomycin/oxygen toxicity. 3. Continue to educate the patient about the importance of smoking cessation and cocaine avoidance. cc: Juventino Santos MD
[2019-09-12] MEDS: DUONEB (A & A) INH SCH ×6 (03:35→23:04)
[2019-09-12] MEDS: ZOSYN 3.375 GM in NS 50 ML IV SCH ×4 (04:27→21:15)
[2019-09-12 06:46] LABS: BASO# 0.01 X1000 (0.0-0.2); BASO% 0.1 % (0.0-0.8); EOS# 0.03 X1000 (0.0-0.7); EOS% 0.2 % (0.0-10.0); HEMATOCRIT 29.6 % (42.0-52.0); HEMOGLOBIN 8.8 g/dL (14.0-18.0); IMM GRAN# 0.03 X1000 (0.0-0.04); IMM GRAN% 0.2 % (0.0-0.5); LYMPH# 1.51 X1000 (1.2-3.4); LYMPH% 10.1 % (20.5-51.1); MCH 27.8 PG (27-31); MCHC 29.7 g/dL (33-37); MCV 93.7 FL (81-99); MONO# 1.24 X1000 (0.11-0.59); MONO% 8.3 % (1.7-9.3); MPV 9.6 FL (7.4-10.4); NEUT# 12.11 X1000 (1.4-6.5); NEUT% 81.1 % (42.2-75.2); PLT 172 X1000 (130-400); RBC 3.16 XMIL (4.7-6.1); RDW 17.7 % (11.5-14.5); WBC 14.93 X1000 (4.8-10.8)
--- NOTE | 2019-09-12 07:02 | Diag Imaging Result Doc PS360 ---
EXAM: CHEST-PORTABLE 09/12/2019 HISTORY: Follow up bilateral lung infiltrate TECHNIQUE: AP portable at 0516 COMMENT: There is dense alveolar opacity particularly in the right perihilar region. There has been minimal improvement since 09/11/2019. IMPRESSION: Slightly improved pulmonary edema and/or pneumonia. Electronically signed by Rishabh Kan 09/12/2019 6:59 AM
[2019-09-12 07:15] LABS: AGAP 12; BUN 30 mg/dL (8-22); CALCIUM 8.6 mg/dL (8.8-10.2); CHLORIDE 104 mmol/L (98-107); COSMO 287; CREATININE 1.4 mg/dL (0.7-1.2); ESTIMATED GFR > 60; GLUCOSE 88 mg/dL (70-104); MAGNESIUM 2.4 mg/dL (1.5-2.7); POTASSIUM 4.3 mmol/L (3.5-5.1); SODIUM 141 mmol/L (136-145); TCO2 25 mmol/L (25-35)
--- NOTE | 2019-09-12 08:12 | PROGRESS NOTE ---
DATE: 09/12/2019 INTERVAL HISTORY: No acute events overnight. SUBJECTIVE: Mr. Ayon has been coughing up productively on a continuous basis with pinkish, frothy sputum tinged with blood. He states he has episodic shortness of breath. He does not have any chest pain. We discussed about again pending sputum culture. I answered all of his questions. I discussed with him about not starting him on aspirin at the moment. OBJECTIVE: Vital Signs: Temperature 97.9 degrees, pulse 82, respiratory rate 26, blood pressure 121/76, saturating 90% to 91% on 2 L nasal cannula. General: Not in any acute distress. HEENT: Oral cavity is moist. Lungs: He has air entry bilaterally equal. No wheeze or rhonchi. Inspiratory crackles in infrascapular region towards base. Cardiovascular: S1, S2 normal. No murmur, rub, or gallop. Abdomen: Obese, soft, nontender. Extremities: No lower extremity edema. He denies any diarrhea or constipation. Input and output suggested -2.3 L yesterday, positive 90 mL today. LABORATORY DATA: Labs suggestive of persistent leukocytosis, normocytic anemia, normal platelet count. No ABG today. BMP suggestive of normal electrolytes, stable BUN and creatinine. His proBNP was decreasing yesterday. MICROBIOLOGY: Stool occult blood test was negative. Sputum culture was canceled. IMAGING: Chest x-ray this morning has slightly improved pulmonary edema and/or pneumonia. ASSESSMENT AND PLAN: 1. Acute hypoxic respiratory failure due to bilateral lung infiltrate due to pneumonia versus bleomycin-induced lung toxicity versus pulmonary edema. Continue intravenous vancomycin, Zosyn, and methylprednisolone. Follow up daily chest x-ray. Appreciate Pulmonology recommendation. We will try to send another sputum sample. 2. Ongoing hemoptysis due to bilateral pneumonia versus pulmonary edema versus other etiology. His CT scan thorax did not have pulmonary embolism. Continue mechanical pneumatic compression devices for deep venous thrombosis prophylaxis, and continue to hold enoxaparin and aspirin. His hemoglobin is stable. 3. History of coronary artery disease with mild systolic and diastolic congestive heart failure with ejection fraction of 45%. However, current echocardiogram was normal. I will continue his home carvedilol and losartan. He is not listed to be taking any statin. 4. Testicular cancer diagnosed in 03/2019, stage T2 N1, mixed germ cell tumor status post 3 cycles of BEP containing bleomycin. His treatment is currently on hold since he showed good improvement. 5. Disposition. I will continue to monitor the patient in intensive care unit. Plan of care discussed with him. His questions have been answered. cc: Ceferino Raymond MD
[2019-09-12] MEDS: SOLU-MEDROL IV SCH (08:18)
[2019-09-12] MEDS: VANCOMYCIN 2,000 MG in NS 500 ML IV SCH (08:18)
[2019-09-12] MEDS: COZAAR PO SCH (08:18)
[2019-09-12] MEDS: COREG PO SCH ×2 (08:18→21:15)
--- NOTE | 2019-09-12 16:48 | PULMONOLOGY PROGRESS NOTE ---
DATE: 09/12/2019 SUBJECTIVE: The patient is awake and alert. He is tolerating p.o. intake. He reports he feels better than yesterday. OBJECTIVE: Vital Signs: The patient has been afebrile for the last 24 hours. Blood pressure 127/83, heart rate 84, respiratory rate 22, oxygen saturation 98% on room air. HEENT: Pupils are equal and reactive. Oropharynx appears clear. Neck: Supple. Chest: Reveals crackles throughout the right base. Cardiac: S1, S2. Abdomen: Soft. Extremities: Without edema. LABORATORIES: Chest x-ray reveals marginal improvement most noticeable now on the left over the last 2 days. Microbiology reveals a gram-negative staphylococcus in his blood in 1 of 2 cultures. White blood count 14.9, hemoglobin 8.3, platelet 172,000. ProBNP is 1111 which is decreased from 2610 two days ago. C-reactive protein is elevated at 52. IMPRESSION: A 53-year-old with 1. Acute hypoxemic respiratory failure. 2. Hemoptysis. This has resolved but he is having some pink-tinged sputum. 3. Pulmonary edema with normal ejection fraction. 4. Significant coronary artery disease on medical management. 5. Tobacco use. DISCUSSION: A 53-year-old with problems outlined above. I believe he may have had an acute rise in his pulmonary artery pressures associated with cardiac ischemia but his current LV function looks good. Clinically he is improving. I doubt current presentation is consistent with a vasculitis but with the elevation in the C-reactive protein, I will send vasculitic and connective tissue studies. PLAN: 1. Minimize oxygen use. He currently is on room air. His saturations have improved over the last 24 hours. 2. Will check an ANCA, anti-GBM, and a connective tissue cascade as outlined above. 3. Continue to educate daily on the importance of cocaine abstinence and smoking cessation. cc: Juventino Santos MD
[2019-09-13] MEDS: VANCOMYCIN 2,000 MG in NS 500 ML IV SCH ×2 (02:45→20:01)
[2019-09-13] MEDS: ZOSYN 3.375 GM in NS 50 ML IV SCH ×4 (03:43→23:17)
[2019-09-13] MEDS: DUONEB (A & A) INH SCH ×6 (03:53→23:33)
[2019-09-13 08:30] LABS: AGAP 13; BUN 25 mg/dL (8-22); CHLORIDE 105 mmol/L (98-107); COSMO 284; CREATININE 1.2 mg/dL (0.7-1.2); ESTIMATED GFR > 60; GLUCOSE 75 mg/dL (70-104); SODIUM 141 mmol/L (136-145); TCO2 23 mmol/L (25-35)
--- NOTE | 2019-09-13 08:43 | Diag Imaging Result Doc PS360 ---
CHEST-PORTABLE - 09/13/2019 INDICATION: Follow up lung infiltrate COMPARISON: 09/12/2019 FINDINGS: Stable extensive bilateral heterogeneous alveolar infiltrates. Stable cardiomegaly. No large pleural effusion. No new infiltrates. IMPRESSION: No change from prior. Electronically signed by Socrates Bergman 09/13/2019 8:41 AM
[2019-09-13] MEDS: SOLU-MEDROL IV SCH (08:45)
[2019-09-13] MEDS: COZAAR PO SCH (09:13)
[2019-09-13] MEDS: COREG PO SCH ×2 (09:13→20:02)
[2019-09-13] MEDS ORDERED: LASIX IV ONE (09:16)
--- NOTE | 2019-09-13 09:54 | PROGRESS NOTE ---
DATE: 09/13/2019 INTERVAL HISTORY: No acute events overnight. He continues to have cough with expectoration, reddish tinge in it. He is feeling slightly better. I discussed with him about coming out of bed as tolerated. He denies any fever or chest pain, any nausea, vomiting, or abdominal pain. He has not had any bowel movement, but he wanted to wait for a day before starting the stool softeners. OBJECTIVE: Vital Signs: Temperature of 98.3 degrees, pulse 94, respiratory rate 13, blood pressure 140/90, saturating 88% on 1 L nasal cannula. General: Does not appear in any acute distress, except he is mildly short of breath at the moment. HEENT: Oral cavity is moist. Nasal cavity does not have any blood. Lungs: Air entry bilaterally equal. No wheeze or rhonchi. Inspiratory crackles, bilateral infrascapular region, with mild decrease in lung sounds. Heart: S1, S2 normal. No murmur, rub, or gallop. Abdomen: Obese, soft, nontender. Extremities: No lower extremity edema. Neurologic: He is alert and oriented x3. Input and output suggests positive 90 mL yesterday, positive 180 mL today. LABORATORY DATA: No CBC today. BMP suggestive of improvement in BUN and creatinine. His C- reactive protein yesterday was elevated. His proBNP was decreasing. MICROBIOLOGY: Stool occult blood test performed was negative. ASSESSMENT AND PLAN: 1. Acute hypoxic respiratory failure due to bilateral lung infiltrate due to bilateral pneumonia versus pulmonary edema versus bleomycin-induced lung toxicity versus other cause. Followup ANCA glomerular basement membrane and connective tissue cascade antibodies. Continue minimal oxygen to maintain saturation around 90%. Follow up daily chest x-rays. Appreciate Pulmonology recommendation. I will keep him on broad-spectrum intravenous antibiotics, intravenous steroids, and albuterol/ipratropium nebulization. I will consider giving him additional intravenous Lasix one time. 2. Hemoptysis or blood-tinged sputum, which could be related to bilateral pneumonia. CT scan thorax did not have pulmonary embolism. Continue pneumatic compression devices for deep venous thrombosis prophylaxis. His hemoglobin appears to be stable. 3. History of coronary artery disease. Echocardiogram is essentially normal with ejection fraction of 57% and pulmonary artery hypertension of 63 mmHg. Continue his home carvedilol and losartan, and will add aspirin once he does not have reddish-tinged sputum. He is not listed to be taking any statin. Previously, medical management was recommended for his coronary artery disease. 4. Testicular cancer diagnosed in 03/2019, stage T2 N1, mixed germ-cell tumor, status post 3 cycles of BEP containing bleomycin. His treatment is currently on hold since he showed good improvement. 5. Disposition. Continue to monitor the patient inside intensive care unit, and after discussion with Pulmonology, will consider transitioning him to PVC since his respiratory status has been stable, though his chest x-ray has not improved. Plan of care discussed with him. His questions have been answered. cc: Ceferino Raymond MD
[2019-09-13 14:05] LABS: ALLEN TEST YES; MODALITY CANNULA
--- NOTE | 2019-09-13 22:02 | PULMONOLOGY PROGRESS NOTE ---
DATE: 09/13/2019 SUBJECTIVE: The patient is awake and alert. Clinically, he feels significantly better. He had a cough with minor blood tinge in his sputum earlier today, which he reports has significantly declined over the last 2 days. OBJECTIVE: Vital Signs: The patient has been afebrile for the last 24 hours. Blood pressure 123/82, heart rate 27, oxygen saturation 98% on room air. HEENT: Pupils are equal and reactive. Oropharynx appears clear. Neck: Supple. Chest: Reveals occasional crackles, right greater than left base. Cardiac: S1, S2. Abdomen: Soft. Extremities: Without edema. LABORATORIES: Sodium 141, potassium 4.0, chloride 105, bicarbonate 23, BUN 25, creatinine 1.2. Chest x-ray reveals infiltrates, right greater than left, without change. IMPRESSION: 53-year-old with: 1. Acute hypoxemic respiratory failure. 2. Hemoptysis, which continues to resolve. 3. Pulmonary edema, with normal ejection fraction. 4. Significant underlying coronary artery disease with ongoing medical management. 5. Tobacco use. 6. Testicular cancer, status post bleomycin exposure. PLAN: 1. Continue to balance intake and output. 2. Minimize oxygen use. 3. Encourage smoking cessation. 4. Await completion of vasculitic workup. cc: Juventino Santos MD
[2019-09-14] MEDS: DUONEB (A & A) INH SCH ×6 (04:12→23:15)
[2019-09-14] MEDS: ZOSYN 3.375 GM in NS 50 ML IV SCH ×4 (04:32→21:40)
[2019-09-14 05:47] LABS: BASO# 0.01 X1000 (0.0-0.2); BASO% 0.1 % (0.0-0.8); EOS% 0.8 % (0.0-10.0); HEMATOCRIT 29.8 % (42.0-52.0); IMM GRAN# 0.02 X1000 (0.0-0.04); IMM GRAN% 0.2 % (0.0-0.5); LYMPH# 1.44 X1000 (1.2-3.4); LYMPH% 12.1 % (20.5-51.1); MCH 27.8 PG (27-31); MCHC 30.2 g/dL (33-37); MONO# 0.88 X1000 (0.11-0.59); MONO% 7.4 % (1.7-9.3); MPV 9.1 FL (7.4-10.4); NEUT# 9.48 X1000 (1.4-6.5); NEUT% 79.4 % (42.2-75.2); PLT 187 X1000 (130-400); RBC 3.24 XMIL (4.7-6.1); RDW 16.6 % (11.5-14.5); WBC 11.93 X1000 (4.8-10.8)
[2019-09-14 06:27] LABS: AGAP 10; BUN 26 mg/dL (8-22); CALCIUM 8.6 mg/dL (8.8-10.2); CHLORIDE 103 mmol/L (98-107); COSMO 280; CREATININE 1.2 mg/dL (0.7-1.2); ESTIMATED GFR > 60; GLUCOSE 87 mg/dL (70-104); MAGNESIUM 2.1 mg/dL (1.5-2.7); POTASSIUM 3.8 mmol/L (3.5-5.1); SODIUM 138 mmol/L (136-145); TCO2 25 mmol/L (25-35)
--- NOTE | 2019-09-14 07:11 | Diag Imaging Result Doc PS360 ---
EXAM: CHEST-PORTABLE 09/14/2019 HISTORY: dyspnea TECHNIQUE: AP portable at 0602 COMMENT: There is alveolar opacity throughout both lungs there may be slight improvement particularly in the left lung since the previous study of 09/13/2019. IMPRESSION: Slightly improved pulmonary edema/ARDS. Electronically signed by Rishabh Kan 09/14/2019 7:09 AM
[2019-09-14] MEDS: COREG PO SCH ×2 (09:33→20:00)
[2019-09-14] MEDS: SOLU-MEDROL IV SCH (09:33)
[2019-09-14] MEDS: COZAAR PO SCH (09:34)
--- NOTE | 2019-09-14 09:55 | PROGRESS NOTE ---
DATE: 09/14/2019 SUBJECTIVE: This patient is completely awake, alert. He is oriented x3. He feels better. He is still having some hemoptysis. X-ray looks a little bit better also. OBJECTIVE: Vital Signs: Temperature 98.4 degrees, pulse 86, respiratory rate 23, blood pressure 130/78, oxygen saturation 91% on room air. HEENT: Head normocephalic. No trauma. PERRLA. Neck: Supple. No JVD. No masses. Central trachea. Chest: Coarse breath sounds mostly at the bases with some scattered crackles. Cardiovascular: RRR. Abdomen: Soft, nontender, nondistended. No hepatosplenomegaly. Extremities: No edema. No clubbing. No cyanosis. Neurological: The patient is alert. He is oriented x3. No focal deficits. LABORATORY DATA: WBC 11.9, hemoglobin 9, hematocrit 29.8, platelets 187,000. Sodium 138, potassium 3.8, chloride 103, bicarbonate 25, BUN 26, creatinine 1.2, glucose 87, calcium 8.6. Magnesium 2.1. ASSESSMENT AND PLAN: 1. Acute hypoxemic respiratory failure due to bilateral lung infiltrate/pneumonia versus pulmonary edema. There is also a possibility of bleomycin-induced lung toxicity. Will continue following the recommendations of Pulmonary Department. We will try to keep the oxygen saturation around 90%. Pending rheumatological studies. 2. Hemoptysis. We will continue with sequential compression devices. We will not put this patient on anticoagulation at this moment due to his hemoptysis. 3. History of coronary artery disease, ejection fraction around 57%, with a pulmonary pressure of 63 mmHg. Continue with the same management. We will add aspirin in the future once his hemoptysis is better. 4. Testicular cancer diagnosed in 03/2019, stage T2 N1, mixed germ-cell tumor, status post 3 cycles of BEP containing bleomycin. His treatment is currently on hold. He is showing some improvement. 5. Disposition. Will continue to monitor this patient in the [facility]. Will continue following the recommendations of Pulmonary Department. 6. Tobacco abuse. This patient has been highly advised against tobacco use. Will continue with daily cessation education. cc: MD YFN Gifford
[2019-09-14 14:51] LABS: ANTINEUTROPHIL CYTOPLASMIC AB SEE COMMENTS
[2019-09-14] MEDS: VANCOMYCIN 2,000 MG in NS 500 ML IV SCH (16:07)
--- NOTE | 2019-09-14 20:42 | PULMONOLOGY PROGRESS NOTE ---
DATE: 09/14/2019 SUBJECTIVE: The patient is awake and alert. He reports he has had a pretty good day. He is having periods of unexplained dyspnea. OBJECTIVE: The patient has been afebrile for the last 24 hours. Blood pressure 139/91, heart rate 90, respiratory rate 22, oxygen saturation 91%. HEENT: Pupils are equal and reactive. Oropharynx appears clear. Neck is supple. Chest reveals crackles, right greater than left base. Cardiac exam: S1, S2. Abdomen is soft. Extremities are without edema. LABORATORY DATA: White blood count 11.93, hemoglobin 9.0, platelet count 187,000. DIAGNOSTIC DATA: Chest x-ray reveals slow continued improvement. IMPRESSION: A 53-year-old with: 1. Acute hypoxemic respiratory failure. 2. Moderate pulmonary hypertension. 3. Significant coronary artery disease with occlusion of the circumflex and significant disease in the right coronary artery. 4. Moderate mitral regurgitation. 5. Tobacco use. 6. Testicular cancer, status post bleomycin exposure. DISCUSSION: A 53-year-old with problems outlined above. The patient had some hemoptysis on presentation. His vasculitic workup is completely normal. His connective tissue workup is normal. This may be treatment-related; however, this could be cardiac related as well. The patient does have significant pulmonary hypertension, significant mitral valve disease, and therefore if he were to have an anginal equivalent, he could have acute increase in his right- sided pressures with associated hemoptysis and bleeding. He continues to have periods of doing well with sudden episodes of dyspnea. If this issue continues, we will recommend asking Cardiology to evaluate this gentleman. PLAN: 1. Continue to balance intake and output. 2. Minimize oxygen use, given history of bleomycin exposure. 3. Encourage smoking cessation. 4. Follow up chest x-ray. cc: Juventino Santos MD
[2019-09-15] MEDS: DUONEB (A & A) INH SCH ×6 (03:18→22:57)
[2019-09-15] MEDS: ZOSYN 3.375 GM in NS 50 ML IV SCH ×4 (03:46→22:38)
[2019-09-15 06:42] LABS: BASO# 0.01 X1000 (0.0-0.2); BASO% 0.1 % (0.0-0.8); EOS# 0.14 X1000 (0.0-0.7); EOS% 1.4 % (0.0-10.0); HEMATOCRIT 28.5 % (42.0-52.0); HEMOGLOBIN 8.4 g/dL (14.0-18.0); IMM GRAN# 0.03 X1000 (0.0-0.04); IMM GRAN% 0.3 % (0.0-0.5); LYMPH# 1.24 X1000 (1.2-3.4); LYMPH% 12.6 % (20.5-51.1); MCH 27.5 PG (27-31); MCHC 29.5 g/dL (33-37); MCV 93.4 FL (81-99); MONO# 0.94 X1000 (0.11-0.59); MONO% 9.6 % (1.7-9.3); MPV 9.3 FL (7.4-10.4); NEUT# 7.45 X1000 (1.4-6.5); PLT 195 X1000 (130-400); RBC 3.05 XMIL (4.7-6.1); RDW 16.8 % (11.5-14.5); WBC 9.81 X1000 (4.8-10.8)
[2019-09-15 07:14] LABS: AGAP 10; ALB/GLOB RATIO 0.8; ALBUMIN 3.1 g/dL (3.5-5.0); ALKALINE PHOSPHATASE 54 U/L (32-122); BUN 22 mg/dL (8-22); CALCIUM 7.8 mg/dL (8.8-10.2); CHLORIDE 101 mmol/L (98-107); COSMO 273; CREATININE 1.2 mg/dL (0.7-1.2); ESTIMATED GFR > 60; GLUCOSE 87 mg/dL (70-104); GOT 15 U/L (10-34); GPT 7 U/L (10-44); POTASSIUM 3.9 mmol/L (3.5-5.1); SODIUM 135 mmol/L (136-145); TCO2 24 mmol/L (25-35); TOTAL PROTEIN 6.8 g/dL (6.3-8.3)
[2019-09-15] MEDS: COZAAR PO SCH (08:06)
[2019-09-15] MEDS: COREG PO SCH ×2 (08:06→20:09)
[2019-09-15] MEDS: SOLU-MEDROL IV SCH (08:06)
--- NOTE | 2019-09-15 08:18 | Diag Imaging Result Doc PS360 ---
EXAM: CHEST-PORTABLE 09/15/2019 HISTORY: SOB TECHNIQUE: AP portable at 0759 COMMENT: There are dense alveolar opacities particularly in the right lung. The opacification of the right lower lobe and obscuration of the hemidiaphragm is somewhat worse than on 09/14/2019. Some of this may be due to less optimal inspiration however. IMPRESSION: Pulmonary edema and/or pneumonia slightly worse than on 09/14/2019. Electronically signed by Rishabh Kan 09/15/2019 8:16 AM
--- NOTE | 2019-09-15 09:00 | PROGRESS NOTE ---
DATE: 09/15/2019 SUBJECTIVE: The patient is completely awake, alert. He is oriented x3. He is feeling a little bit better. As per the patient, he is not having hemoptysis. X-ray looks a little bit worse compared with yesterday, even though he feels better. OBJECTIVE: Vital Signs: Temperature 98.1 degrees, pulse 90, respiratory rate 18, blood pressure 127/85, oxygen saturation 93 on nasal cannula. HEENT: Head normocephalic. No trauma. PERRLA. Neck: Supple. No JVD. No masses. Central trachea. Chest: Coarse breath sounds, mostly at the bases, with some scattered crackles. Cardiovascular: RRR. Abdomen: Soft, nontender, nondistended. No hepatosplenomegaly. Extremities: No edema, no clubbing, no cyanosis. Neurological: The patient is completely alert and oriented x3. No focal deficits. LABORATORY DATA: WBC 9.8, hemoglobin 8.4, hematocrit 28.5, platelets 195,000. Sodium 135, potassium 3.9, chloride 101, bicarbonate 24, BUN 22, creatinine 1.2, glucose 87, calcium 7.8. AST 15, ALT 7, alkaline phosphatase 54, albumin 3.1. ASSESSMENT AND PLAN: 1. Acute hypoxemic respiratory failure due to bilateral lung infiltrate/pneumonia versus pulmonary edema. There is also a possibility of bleomycin-induced lung toxicity. Will continue with the same management. Pulmonary Department on board. He seems to be feeling better. Vasculitis and connective tissue workup came back normal. 2. Hemoptysis. Continue with sequential compression devices for now. He is not on anticoagulation. It looks like he did not have any hemoptysis during the night or yesterday afternoon. 3. History of coronary artery disease. Ejection fracture is around 57%, but his pulmonary artery pressure is 63 mmHg, so this patient has a severe pulmonary hypertension. Will continue with the same management for now. We will add aspirin in the future once we are sure that this patient's hemoptysis has been already resolved. He may need to be evaluated by Cardiology Department, hopefully as an outpatient. 4. Testicular cancer diagnosed in 03/2018, stage T2 N1, mixed germ-cell tumor, status post 3 cycles of BEP containing bleomycin. His treatment is currently on hold. He is showing some improvement clinically. 5. Disposition. Continue monitoring this patient in the PVC. Will continue following the recommendation of Pulmonary Department. We will try to keep the oxygen saturation around 90. 6. Tobacco abuse. This patient has been highly advised against tobacco use. Will continue with daily cessation education. 7. Acute kidney injury, resolved. BUN and creatinine within normal limits. cc: Bayron Weston MD
[2019-09-15] MEDS: VANCOMYCIN 2,000 MG in NS 500 ML IV SCH (09:04)
[2019-09-15] MEDS: CALTRATE 600 + D PO SCH (11:47)
[2019-09-15 12:08] LABS: HEMATOCRIT 30.3 % (42.0-52.0)
[2019-09-16] MEDS: VANCOMYCIN 2,000 MG in NS 500 ML IV SCH (01:22)
[2019-09-16] MEDS: TUSSIONEX LIQUID PO PRN ×2 (01:22→20:42)
[2019-09-16] MEDS: DUONEB (A & A) INH SCH ×6 (03:17→22:41)
[2019-09-16] MEDS: ZOSYN 3.375 GM in NS 50 ML IV SCH ×4 (04:11→22:11)
[2019-09-16 05:55] LABS: BASO# 0.02 X1000 (0.0-0.2); BASO% 0.2 % (0.0-0.8); EOS% 2.6 % (0.0-10.0); HEMATOCRIT 28.6 % (42.0-52.0); HEMOGLOBIN 8.7 g/dL (14.0-18.0); IMM GRAN# 0.03 X1000 (0.0-0.04); IMM GRAN% 0.3 % (0.0-0.5); LYMPH# 1.29 X1000 (1.2-3.4); LYMPH% 11.2 % (20.5-51.1); MCH 28.3 PG (27-31); MCHC 30.4 g/dL (33-37); MCV 93.2 FL (81-99); MONO# 1.02 X1000 (0.11-0.59); MONO% 8.8 % (1.7-9.3); MPV 9.3 FL (7.4-10.4); NEUT% 76.9 % (42.2-75.2); PLT 175 X1000 (130-400); RBC 3.07 XMIL (4.7-6.1); RDW 16.7 % (11.5-14.5); WBC 11.56 X1000 (4.8-10.8)
[2019-09-16 06:26] LABS: AGAP 13; BUN 19 mg/dL (8-22); CALCIUM 8.5 mg/dL (8.8-10.2); CHLORIDE 104 mmol/L (98-107); COSMO 279; CREATININE 0.9 mg/dL (0.7-1.2); ESTIMATED GFR > 60; GLUCOSE 87 mg/dL (70-104); SODIUM 139 mmol/L (136-145); TCO2 22 mmol/L (25-35)
[2019-09-16] MEDS ORDERED: LASIX IV ONE ×2 (07:51→15:58)
--- NOTE | 2019-09-16 08:25 | PROGRESS NOTE ---
DATE: 09/16/2019 SUBJECTIVE: This patient seems to be more short of breath, especially during the night. X-ray yesterday looked a little bit worse. His kidney function today is normal, so I will go ahead and give dose of Lasix x1 to see how he does. He takes Lasix at home as well. Otherwise, no changes. OBJECTIVE: Vital Signs: Temperature 97.9 degrees, pulse 84, respiratory rate 16, blood pressure 141/95, oxygen saturation 93 on 2 L of nasal cannula. HEENT: Head normocephalic, no trauma. PERRLA. Neck: Supple. No JVD. No masses. Central trachea. Chest: Coarse breath sounds with crackles bilaterally, mostly at the bases. Cardiovascular: RRR. Abdomen: Soft, nontender, nondistended. No hepatosplenomegaly. Extremities: No edema, no clubbing, no cyanosis. Neurological examination: The patient is alert and oriented x3. No focal deficits. LABORATORY: WBC 11.5, hemoglobin 8.7, hematocrit 28.6, platelets 175. Sodium 139, potassium 4, chloride 104, bicarbonate 23. BUN 19, creatinine 0.9, glucose 87, calcium 8.5, magnesium 1.9. ASSESSMENT AND PLAN: 1. Acute hypoxemic respiratory failure due to bilateral lung infiltrate/pneumonia versus pulmonary edema. Also, there is a possibility of bleomycin-induced lung toxicity. We will continue with same management. Pulmonary Department on board. He seems to be feeling better. Vasculitis and connective tissue disorder workup came back normal. 2. Hemoptysis. This seems to be getting better. He is not on blood thinners. Continue with same management. 3. History of coronary artery disease. His ejection fraction is around 57%, but he does have pulmonary hypertension with a pulmonary arterial pressure of 63 mmHg. 4. Testicular cancer diagnosed in 03/2018, stage T2N1 mixed germ-cell tumor, status post 3 cycles of BEP containing bleomycin, his treatment is currently on hold. He is showing some improvement clinically, but he has been having some shortness of breath mostly during the night. 5. Tobacco abuse this. Patient has been highly advised against tobacco use. I will continue with daily cessation education. 6. Acute kidney injury, resolved. BUN and creatinine within normal limits. I will switch the vancomycin to Zyvox to avoid more nephrotoxic medications since I am going to start this patient on Lasix today. cc: Bayron Weston MD
[2019-09-16] MEDS: ZYVOX 600 MG/D5W 600 MG/300 ML IVPB IV SCH ×2 (09:00→20:42)
[2019-09-16] MEDS: COREG PO SCH ×2 (09:01→20:42)
[2019-09-16] MEDS: CALTRATE 600 + D PO SCH (09:01)
[2019-09-16] MEDS: SOLU-MEDROL IV SCH (09:02)
[2019-09-16] MEDS: COZAAR PO SCH (09:02)
[2019-09-16] MEDS ORDERED: TESSALON PO ONE (09:25)
--- NOTE | 2019-09-16 19:41 | PULMONOLOGY PROGRESS NOTE ---
DATE: 09/16/2019 SUBJECTIVE: The patient reports he has had a pretty good day. He has not had periods of shortness of breath like yesterday. He reports his cough is clear and no blood has been seen. OBJECTIVE: Blood pressure 107/70, heart rate 86, respiratory rate 20, oxygen saturation 93% on 1 L per nasal cannula.HEENT: Pupils are equal and reactive. Oropharynx appears clear. Neck is supple. Chest reveals crackles predominantly at the right base. Cardiac exam: S1, S2. Abdomen is soft. Extremities are without edema. LABORATORY DATA: White blood count 11.56, hemoglobin 8.7, platelet count 175,000. Sodium 139, potassium 4.0, chloride 104, bicarbonate 22, BUN 19, creatinine 0.9. IMPRESSION: A 53-year-old with: 1. Acute hypoxemic respiratory failure. 2. Moderate pulmonary hypertension. 3. Significant coronary artery disease with occlusion of the circumflex and significant disease in the right coronary artery. 4. Mitral regurgitation. 5. Tobacco use. 6. Testicular cancer, status post bleomycin exposure. PLAN: 1. Continue to balance intake and output. 2. Minimize oxygen use, given bleomycin exposure. 3. Encourage smoking cessation. 4. Two-view chest x-ray tomorrow. cc: Juventino Santos MD
[2019-09-17] MEDS: DUONEB (A & A) INH SCH ×6 (03:31→22:59)
[2019-09-17] MEDS: ZOSYN 3.375 GM in NS 50 ML IV SCH ×4 (03:47→22:40)
[2019-09-17 06:28] LABS: AGAP 11; BUN 23 mg/dL (8-22); CALCIUM 8.8 mg/dL (8.8-10.2); CHLORIDE 103 mmol/L (98-107); COSMO 284; CREATININE 1.3 mg/dL (0.7-1.2); ESTIMATED GFR > 60; GLUCOSE 84 mg/dL (70-104); MAGNESIUM 1.9 mg/dL (1.5-2.7); PHOSPHORUS 4.1 mg/dL (2.7-4.5); POTASSIUM 4.2 mmol/L (3.5-5.1); SODIUM 141 mmol/L (136-145); TCO2 27 mmol/L (25-35)
[2019-09-17] MEDS ORDERED: DIPRIVAN 1% 0 MG/0 ML BOTTLE ONE (07:24)
[2019-09-17] MEDS ORDERED: FENTANYL ONE (07:30)
[2019-09-17] MEDS ORDERED: VERSED ONE (07:31)
--- NOTE | 2019-09-17 07:46 | Diag Imaging Result Doc PS360 ---
EXAM: CHEST-2 VIEWS HISTORY: abnormal exam TECHNIQUE: Two views COMPARISON: 09/15/2019 FINDINGS: There are dense infiltrates in the mid and lower lungs. These are slightly smaller and less dense than on the prior study. The heart remains mildly enlarged. Small pleural effusions. IMPRESSION: Mild interval improvement. Electronically signed by Alan Garcia 09/17/2019 7:44 AM
[2019-09-17] MEDS: CALTRATE 600 + D PO SCH (08:10)
[2019-09-17] MEDS: COZAAR PO SCH (08:10)
[2019-09-17] MEDS: SOLU-MEDROL IV SCH ×3 (08:10→22:40)
[2019-09-17] MEDS: ZYVOX 600 MG/D5W 600 MG/300 ML IVPB IV SCH ×2 (08:10→20:38)
[2019-09-17] MEDS: COREG PO SCH ×2 (08:10→20:38)
[2019-09-17] MEDS: TUSSIONEX LIQUID PO PRN (10:19)
--- NOTE | 2019-09-17 11:32 | PROGRESS NOTE ---
DATE: 09/17/2019 SUBJECTIVE: This patient seems to be feeling better. He is still having some epistaxis, and some white each phlegm is coming out. His breathing is better. X-ray looks better also. OBJECTIVE: Vital Signs: Temperature 98.3 degrees, pulse 87, respiratory rate 16, blood pressure 145/80, oxygen saturation 91% on 2 L of nasal cannula. HEENT: Head normocephalic. No trauma. PERRLA. Neck: Supple. No JVD. No masses. Central trachea. Chest: Coarse breath sounds with some crackles mostly at the bases. Cardiovascular: Regular rate and rhythm. Abdomen: Soft, nontender, nondistended. No hepatosplenomegaly. Extremities: No edema, no clubbing, no cyanosis. Neurological: The patient is alert. He is oriented x3. No focal deficits. LABORATORY DATA: Sodium 141, potassium 4.2, chloride 103, bicarbonate 27, BUN 23, creatinine 1.3, glucose 84, calcium 8.8, phosphorus 4.1, magnesium 1.9. ASSESSMENT AND PLAN: 1. Acute hypoxemic respiratory failure due to bilateral lung infiltrate/pneumonia versus pulmonary edema versus the possibility of bleomycin-induced lung toxicity. Continue with same management for now. Pulmonary Department on board. Continue with antibiotics. He is feeling a bit better. Vasculitis and connective tissue disorder workup came back normal. 2. Hemoptysis. He seems to be having some hemoptysis. We will continue with the same management. He is not on blood thinners. 3. History of coronary artery disease, ejection fraction around 57%. He does have pulmonary hypertension with a pulmonary arterial pressure of 64 mmHg. 4. Testicular cancer diagnosed in 03/2018, stage T2 N1, mixed germ-cell tumor, status post 3 cycles or BEP containing bleomycin. His treatment is currently on hold. 5. Tobacco abuse. This patient has been advised against tobacco use. Will continue with daily cessation education. 6. Acute kidney injury. BUN and creatinine increased today. We will continue with the same management. Yesterday, he received a single dose of Lasix but not today. cc: Bayron Weston MD
[2019-09-17] MEDS: TESSALON PO SCH (17:42)
--- NOTE | 2019-09-17 19:23 | PULMONOLOGY PROGRESS NOTE ---
DATE: 09/17/2019 SUBJECTIVE: The patient is awake and alert. He denies shortness of breath at rest. He has clear sputum today. OBJECTIVE: Vital Signs: The patient has been afebrile for the last 24 hours. Blood pressure 115/70, heart rate 92, respiratory rate 14, oxygen saturation 91% on room air. HEENT: Pupils are equal and reactive. Oropharynx appears clear. Neck: Supple. Chest: Reveals crackles predominantly at the right base. Cardiac Exam: S1-S2. Abdomen: Soft. Extremities: Without edema. LABORATORIES: Chest x-ray reveals mild interval improvement. Sodium 141, potassium 4.2, chloride 103, bicarbonate 23, creatinine 1.3. IMPRESSION: A 53-year-old with 1. Bleomycin exposure. 2. Acute hypoxemic respiratory failure. 3. Moderate pulmonary hypertension. 4. Significant coronary artery disease. 5. Mitral regurgitation. 6. Tobacco use. 7. Status post treatment for testicular cancer. DISCUSSION: A 53-year-old with marginal improvement. The patient is on steroids, but a small dose. He has not cleared his radiograph in 8 days. His eosinophils are not completely suppressed and he does have some elevation in his C-reactive protein. PLAN: 1. Augment steroid dosing. 2. Check CBC and C-reactive protein on Friday. 3. Minimize oxygen use given bleomycin exposure. 4. Encourage smoking cessation. 5. Avoid bleomycin from this point on. cc: Juventino Santos MD
[2019-09-17] MEDS: AMBIEN PO PRN (23:08)
[2019-09-18] MEDS: DUONEB (A & A) INH SCH ×6 (03:30→23:24)
[2019-09-18] MEDS: ZOSYN 3.375 GM in NS 50 ML IV SCH ×4 (04:37→21:31)
[2019-09-18] MEDS: SOLU-MEDROL IV SCH ×4 (04:37→21:31)
[2019-09-18 06:43] LABS: BASO# 0.01 X1000 (0.0-0.2); BASO% 0.1 % (0.0-0.8); HEMATOCRIT 32.3 % (42.0-52.0); HEMOGLOBIN 9.6 g/dL (14.0-18.0); IMM GRAN# 0.06 X1000 (0.0-0.04); IMM GRAN% 0.5 % (0.0-0.5); LYMPH# 0.66 X1000 (1.2-3.4); LYMPH% 5.1 % (20.5-51.1); MCH 27.7 PG (27-31); MCHC 29.7 g/dL (33-37); MCV 93.4 FL (81-99); MONO# 0.19 X1000 (0.11-0.59); MONO% 1.5 % (1.7-9.3); MPV 9.3 FL (7.4-10.4); NEUT# 11.91 X1000 (1.4-6.5); NEUT% 92.8 % (42.2-75.2); PLT 221 X1000 (130-400); RBC 3.46 XMIL (4.7-6.1); RDW 16.7 % (11.5-14.5); WBC 12.83 X1000 (4.8-10.8)
[2019-09-18 07:07] LABS: AGAP 14; BUN 23 mg/dL (8-22); CALCIUM 8.9 mg/dL (8.8-10.2); CHLORIDE 101 mmol/L (98-107); COSMO 283; CREATININE 1.1 mg/dL (0.7-1.2); ESTIMATED GFR > 60; GLUCOSE 133 mg/dL (70-104); POTASSIUM 4.7 mmol/L (3.5-5.1); SODIUM 139 mmol/L (136-145); TCO2 24 mmol/L (25-35)
[2019-09-18 07:13] LABS: LYMPHS 14 % (21-51); SEGS 86 % (42-75)
[2019-09-18] MEDS: CALTRATE 600 + D PO SCH (08:58)
[2019-09-18] MEDS: COZAAR PO SCH (08:58)
[2019-09-18] MEDS: COREG PO SCH ×2 (08:58→21:30)
[2019-09-18] MEDS: TESSALON PO SCH ×3 (08:59→16:42)
[2019-09-18] MEDS: ZYVOX 600 MG/D5W 600 MG/300 ML IVPB IV SCH ×2 (09:03→19:43)
--- NOTE | 2019-09-18 12:09 | PROGRESS NOTE ---
DATE: 09/18/2019 SUBJECTIVE: No changes compared with yesterday. Pulmonary Department evaluated this patient and they have increased the dose of the steroids. We will get CRP on Friday, minimize oxygen use given his bleomycin exposure, so we will continue monitoring this patient closely. He is he is still having hemoptysis. OBJECTIVE: Vital Signs: Temperature 98.7 degrees, pulse 86, respiratory rate 20, blood pressure 137/97, oxygen saturation 84 on room air. HEENT: Head normocephalic, no trauma. PERRLA. Neck: Supple. No JVD. No masses. Central trachea. Chest: Coarse breath sounds with some crackles, mostly at the bases. Cardiovascular: Regular rate and rhythm. Abdomen: Soft, nontender, nondistended. No hepatosplenomegaly. Extremities: No edema, no clubbing, no cyanosis. Neurological: The patient is alert and oriented x3. No focal deficits. LABORATORY DATA: WBC 12.8, hemoglobin 9.6, hematocrit 32.3, platelets 131,000. Sodium 139, potassium 4.7, chloride 101, bicarbonate 24, BUN 23, creatinine 1.1, glucose 133, calcium 8.9. ASSESSMENT AND PLAN: 1. Acute hypoxemic respiratory failure due to bilateral lung infiltrate, pneumonia versus pulmonary edema versus the possibility of bleomycin-induced lung toxicity. Continue with same management for now. Pulmonary Department on board continue with antibiotics, and the dose of the steroids has been increased. Vasculitis and connective tissue disorder workup came back normal. 2. Hemoptysis. Continue with the same management. We will monitor this patient closely. He is not on blood thinners. 3. History of coronary artery disease, ejection fraction around 57. He does have pulmonary hypertension with a pulmonary arterial pressure of 64 mmHg. 4. Testicular cancer diagnosed on 04/13/2019, stage T2 9-1 mixed germ cell tumour status post 3 cycles of BEP containing bleomycin. His treatment is currently on hold and hopefully he will not get more bleomycin in the future. 5. Tobacco abuse. He has been highly advised against tobacco use. I will continue with daily cessation education. 6. Acute kidney injury. BUN about the same compared with yesterday. Creatinine decreased a little bit. cc: Bayron Weston MD
[2019-09-18] MEDS ORDERED: LASIX IV ONE (13:43)
--- NOTE | 2019-09-18 16:59 | PULMONOLOGY PROGRESS NOTE ---
DATE: 09/18/2019 SUBJECTIVE: The patient reports some cough and hemoptysis last evening. He reports he is more short of breath today than yesterday. OBJECTIVE: Vital Signs: The patient has been afebrile for the last 24 hours. Blood pressure 128/86, heart rate 82, respiratory rate 15, oxygen saturation 88% on 2 L per nasal cannula. HEENT: Pupils are equal and reactive. Oropharynx appears clear. neck: Neck is supple. chest: Chest reveals good air entry bilaterally with crackles right greater than left base. Cardiac: S1-S2. abdomen: Abdomen is soft. Extremities: Extremities reveal trace edema. LABORATORIES: There is no new microbiology data. White blood count 12.8, hemoglobin 9.6, platelet count 221,000, eosinophil count is 0. Sodium 139, potassium 4.7, chloride 101, bicarbonate 24, BUN 23, creatinine 1.1. IMPRESSION: A 53-year-old with: 1. Bleomycin exposure. 2. Acute hypoxemic respiratory failure. 3. Moderate pulmonary hypertension. 4. Significant coronary artery disease. 5. Mitral regurgitation. 6. Status post treatment for testicular cancer. 7. Tobacco use. DISCUSSION: A 53-year-old with problems outlined above. He is having a fluctuating clinical course. His steroids were augmented yesterday. His eosinophil count is now 0. I will check a chest x-ray and C-reactive protein level tomorrow. PLAN: 1. Single dose of Lasix today. We will attempt to balance intake and output. 2. Continue augmented steroid dosing. 3. Minimize oxygen use given bleomycin exposure. cc: Juventino Santos MD
[2019-09-18] MEDS: LOMOTIL PO PRN (21:31)
[2019-09-19] MEDS: DUONEB (A & A) INH SCH ×6 (03:23→23:23)
[2019-09-19] MEDS: SOLU-MEDROL IV SCH ×4 (04:07→21:22)
[2019-09-19] MEDS: ZOSYN 3.375 GM in NS 50 ML IV SCH ×4 (04:07→22:29)
[2019-09-19 06:21] LABS: HEMATOCRIT 33.5 % (42.0-52.0); IMM GRAN# 0.09 X1000 (0.0-0.04); IMM GRAN% 0.5 % (0.0-0.5); LYMPH# 0.63 X1000 (1.2-3.4); LYMPH% 3.4 % (20.5-51.1); MCH 27.8 PG (27-31); MCHC 29.9 g/dL (33-37); MCV 93.1 FL (81-99); MONO# 0.88 X1000 (0.11-0.59); MONO% 4.8 % (1.7-9.3); MPV 9.2 FL (7.4-10.4); NEUT# 16.78 X1000 (1.4-6.5); NEUT% 91.3 % (42.2-75.2); PLT 229 X1000 (130-400); RDW 17.2 % (11.5-14.5); WBC 18.38 X1000 (4.8-10.8)
[2019-09-19 06:55] LABS: AGAP 13; BUN 32 mg/dL (8-22); CALCIUM 9.5 mg/dL (8.8-10.2); CHLORIDE 101 mmol/L (98-107); COSMO 288; CREATININE 1.4 mg/dL (0.7-1.2); ESTIMATED GFR > 60; GLUCOSE 127 mg/dL (70-104); POTASSIUM 4.6 mmol/L (3.5-5.1); SODIUM 140 mmol/L (136-145); TCO2 26 mmol/L (25-35)
[2019-09-19] MEDS ORDERED: LASIX IV ONE (08:59)
[2019-09-19] MEDS: TESSALON PO SCH ×3 (09:17→16:57)
[2019-09-19] MEDS: CALTRATE 600 + D PO SCH (09:17)
[2019-09-19] MEDS: COREG PO SCH ×2 (09:17→21:22)
[2019-09-19] MEDS: COZAAR PO SCH (09:18)
[2019-09-19] MEDS: ZYVOX 600 MG/D5W 600 MG/300 ML IVPB IV SCH ×2 (09:56→20:22)
--- NOTE | 2019-09-19 10:08 | Diag Imaging Result Doc PS360 ---
EXAM: CHEST-PORTABLE 09/19/2019 HISTORY: decreased oxygen saturation TECHNIQUE: AP portable erect at 0946 COMMENT: There is diffuse alveolar opacity which has worsened since the previous examination of 09/17/2019. The inspiration is less optimal however and this may be in part responsible. IMPRESSION: Worsening pulmonary edema and/or pneumonia. Electronically signed by Rishabh Kan 09/19/2019 10:06 AM
--- NOTE | 2019-09-19 14:12 | PROGRESS NOTE ---
DATE: 09/19/2019 SUBJECTIVE: The patient seems to be a little bit worse today compared with yesterday. X-ray looks worse. The dose of the steroids has been increased. He has been getting some diuretics as well. Pulmonary Department following this patient closely. He seems to be more hypoxemic. PHYSICAL EXAMINATION: Vitals: Temperature 97.5 degrees, pulse 95, respiratory rate 17, blood pressure 118/82. Oxygen saturation 92 on 4 L of nasal cannula. HEENT: Head normocephalic, no trauma. PERRLA. Neck: Supple. No JVD. No masses. Central trachea. Chest: Coarse breath sounds with some crackles mostly at the bases. Cardiovascular: RRR. Abdomen: Soft, nontender, nondistended. No hepatosplenomegaly. Extremities: No edema, no clubbing, no cyanosis. Neurological: The patient is alert. He is oriented x3. No focal deficits, but he does have some generalized weakness. LABORATORY: WBC 18.3, hemoglobin 10, hematocrit 33.5, platelets 229,000. Sodium 140, potassium 4.6, chloride 101, bicarbonate 26, BUN 32, creatinine 1.4, glucose 127, calcium 9.5. ASSESSMENT AND PLAN: 1. Acute hypoxemic respiratory failure due to bilateral lung infiltrate, pneumonia versus pulmonary edema versus bleomycin induced lung toxicity. Continue with same management for now. It looks like he is worse compared with yesterday and the day before. I will continue following the recommendations of Pulmonary Department. His dose of steroids has been increased, and he has been getting diuretics. 2. Hemoptysis. Continue with same management. We will monitor. He is not on anticoagulation. 3. History of coronary artery disease. Ejection fraction around 57. He does have pulmonary hypertension, which is quite severe. 4. Testicular cancer diagnosed on 04/13/2019, stage T2 N1, mixed germ cell tumor status post 3 cycles or of BEP containing bleomycin. Treatment has been currently on hold. Hopefully, he is not going to get more bleomycin in the future. Continue with same management. 5. Tobacco abuse. This patient has been highly advised against tobacco use. Will continue with daily cessation education. He cannot smoke anymore. 6. Acute kidney injury. BUN and creatinine have been increasing, but this patient has been getting diuretics. We will just monitor. cc: Bayron Weston MD [facility]
--- NOTE | 2019-09-19 22:15 | PULMONOLOGY PROGRESS NOTE ---
DATE: 09/19/2019 SUBJECTIVE: The patient reports he feels a little worse this morning. He has had some cough and bloody sputum production. OBJECTIVE: Vital Signs: The patient has been afebrile over the last 24 hours. Blood pressure 124/79, heart rate 91, respiratory rate 19, oxygen saturation 93%. HEENT: Pupils are equal and reactive. Oropharynx appears clear. Neck: Supple. Chest: Reveals coarse crackles right greater than left base. Cardiac: S1-S2. Abdomen: Soft. Extremities: Without edema. LABORATORIES: Chest x-ray reveals worsening infiltrate, right greater than left. IMPRESSION: A 53-year-old with history of testicular cancer status post: 1. Bleomycin exposure. 2. Acute hypoxemic respiratory failure. 3. Intermittent hemoptysis. 4. Significant coronary artery disease. 5. Mitral regurgitation. 6. Tobacco use. DISCUSSION: A 53-year-old with problems outlined above. He has intermittent hemoptysis, which may be related to bleomycin, but vasculitis and hemoptysis is unusual with this medication. The patient's proBNP is elevated and it could be related to cardiac ischemia with mitral valve dysfunction. He has not improved with increased steroids. PLAN: 1. Continue increased dose of steroids. 2. Check C-reactive protein tomorrow. 3. Consider cardiology consultation. He might benefit from a SOTERO. cc: Juventino Santos MD [facility]
[2019-09-20] MEDS: DUONEB (A & A) INH SCH ×6 (03:00→23:08)
[2019-09-20] MEDS: ZOSYN 3.375 GM in NS 50 ML IV SCH ×4 (04:11→21:43)
[2019-09-20] MEDS: SOLU-MEDROL IV SCH ×4 (04:11→21:42)
[2019-09-20 06:07] LABS: HEMATOCRIT 31.7 % (42.0-52.0); HEMOGLOBIN 9.6 g/dL (14.0-18.0); IMM GRAN# 0.07 X1000 (0.0-0.04); IMM GRAN% 0.6 % (0.0-0.5); LYMPH# 0.67 X1000 (1.2-3.4); LYMPH% 5.6 % (20.5-51.1); MCH 28.1 PG (27-31); MCHC 30.3 g/dL (33-37); MCV 92.7 FL (81-99); MONO# 0.25 X1000 (0.11-0.59); MONO% 2.1 % (1.7-9.3); MPV 8.9 FL (7.4-10.4); NEUT# 10.99 X1000 (1.4-6.5); NEUT% 91.7 % (42.2-75.2); PLT 206 X1000 (130-400); RBC 3.42 XMIL (4.7-6.1); RDW 17.3 % (11.5-14.5); WBC 11.98 X1000 (4.8-10.8)
--- NOTE | 2019-09-20 06:15 | Diag Imaging Result Doc PS360 ---
EXAM: CHEST-PORTABLE HISTORY: abnormal exam TECHNIQUE: Single view COMPARISON: 09/19/2019 FINDINGS: The lungs are well expanded. There are bilateral infiltrates. These may be slightly less dense. No cardiomegaly. No pleural effusions identified. IMPRESSION: Slight interval improvement Electronically signed by Alan Garcia 09/20/2019 6:13 AM
[2019-09-20 06:26] LABS: ALBUMIN 3.5 g/dL (3.5-5.0); CALCIUM 8.9 mg/dL (8.8-10.2); CREATININE 1.5 mg/dL (0.7-1.2); POTASSIUM 4.4 mmol/L (3.5-5.1); TOTAL BILIRUBIN 0.73 mg/dL (0.20-1.00)
[2019-09-20] MEDS: ZYVOX 600 MG/D5W 600 MG/300 ML IVPB IV SCH ×2 (07:40→20:18)
[2019-09-20] MEDS: CALTRATE 600 + D PO SCH (09:40)
[2019-09-20] MEDS: TESSALON PO SCH ×3 (09:40→17:26)
[2019-09-20] MEDS: COZAAR PO SCH (09:40)
[2019-09-20] MEDS: COREG PO SCH ×2 (09:40→21:43)
[2019-09-20] MEDS: LASIX IV SCH ×2 (12:26→20:19)
--- NOTE | 2019-09-20 13:43 | PROGRESS NOTE ---
DATE: 09/20/2019 SUBJECTIVE: The patient seems to be a little bit better symptomatically today compared with yesterday. X-ray looks a little bit better as well, BUN and creatinine are going up, he has not been coughing up blood for the past 24 hours just clear phlegm, I will continue following the recommendations of Pulmonary Department. OBJECTIVE: Vital Signs: Temperature 98.3 degrees, pulse 91, respiratory rate 16, blood pressure 146/84, oxygen saturation 93 on 3 L of nasal cannula. HEENT: Head normocephalic, no trauma. PERRLA. Neck: Supple. No JVD. No masses. Central trachea. Chest: Coarse breath sounds bilaterally with some crepitus and crackles at the bases. Cardiovascular: RRR. Abdomen: Soft, nontender, nondistended. No hepatosplenomegaly. Extremities: No edema, no clubbing, no cyanosis. Neurologic: The patient is alert. He is oriented x3. No focal neurological deficits. LABORATORY: WBC 11.9, hemoglobin 9.6, hematocrit 31.7, platelets 206,000. Sodium 137, potassium 4.4, chloride 98, bicarbonate 26, BUN 43, creatinine 1.5, glucose 122, calcium 8.9, CRP 7.9 which is much better compared with the previous 1 done on 09/12/2019 at 52.6. ASSESSMENT AND PLAN: 1. Acute hypoxemic respiratory failure due to bilateral lung infiltrate, pneumonia versus pulmonary edema versus bleomycin induced lung toxicity. I will continue with same management for now. He looks a bit better compared with yesterday. I will continue following the recommendations of Pulmonary Department. 2. Hemoptysis as above, he is not on anticoagulation. Will continue with same management. He has not been having hemoptysis for the past 24 hours. 3. History of coronary artery disease, ejection fraction around 57%. He does have pulmonary hypertension which is quite severe. 4. History of testicular cancer diagnosed on 04/13/2019 stage T2N1, mixed germ-cell tumor status post 3 cycles of BEP containing bleomycin, treatment has been currently on hold. Hopefully he is not going to get more bleomycin in the future. For now I will continue with same management. 5. Tobacco abuse. This patient has been highly advised against tobacco use. I will continue with daily cessation education. He cannot smoke anymore. 6. Acute kidney injury. BUN and creatinine has been increasing slightly probably due to diuretics. We will just continue to monitor. cc: Bayron Weston MD
--- NOTE | 2019-09-20 20:53 | PULMONOLOGY PROGRESS NOTE ---
DATE: 09/20/2019 SUBJECTIVE: The patient is awake, alert, and conversant. He reports he feels the best he has in a while. He denies cough. He denies hemoptysis. OBJECTIVE: Vital Signs: The patient has been afebrile for the last 24 hours. Blood pressure 136/86, heart rate 93, respiratory rate 22, oxygen saturation 92% on 2 L per nasal cannula. HEENT: Pupils are equal and reactive. Oropharynx is clear. Neck: Supple. Chest: Reveals crackles at the right anterior base. Cardiac Exam: S1, S2. Abdomen: Soft. Extremities: Reveal trace edema. LABORATORY: Chest x-ray reveals bilateral infiltrates, right greater than left, with marginal improvement over the last 24 hours. IMPRESSION: A 53-year-old with testicular cancer with: 1. Status post Bleomycin exposure. 2. Acute hypoxemic respiratory failure. 3. Intermittent hemoptysis. 4. Mitral regurgitation, with significant coronary artery disease. 5. Tobacco use. PLAN: 1. Continue dose of steroids. His C-reactive protein has significantly improved and is now 7.91. It was 52 on 09/12/2019. 2. Minimize the amount of oxygen given prior bleomycin exposure, although the data is mixed on the effect of oxygen on bleomycin. 3. Consider cardiology evaluation if the patient does not have persistent and ongoing improvement. Clinically, he appears to do better when he is slightly dry, but I am bumping his BUN and creatinine. 4. Plan chest x-ray on Friday. cc: Juventino Santos MD
[2019-09-21] MEDS: DUONEB (A & A) INH SCH ×5 (04:01→19:58)
[2019-09-21] MEDS: ZOSYN 3.375 GM in NS 50 ML IV SCH ×4 (04:09→21:03)
[2019-09-21] MEDS: SOLU-MEDROL IV SCH ×4 (04:09→21:03)
[2019-09-21 06:14] LABS: HEMOGLOBIN 9.5 g/dL (14.0-18.0); IMM GRAN# 0.03 X1000 (0.0-0.04); IMM GRAN% 0.3 % (0.0-0.5); LYMPH# 0.54 X1000 (1.2-3.4); LYMPH% 5.8 % (20.5-51.1); MCH 27.4 PG (27-31); MCHC 29.7 g/dL (33-37); MCV 92.2 FL (81-99); MONO# 0.29 X1000 (0.11-0.59); MONO% 3.1 % (1.7-9.3); MPV 9.2 FL (7.4-10.4); NEUT# 8.38 X1000 (1.4-6.5); NEUT% 90.8 % (42.2-75.2); PLT 202 X1000 (130-400); RBC 3.47 XMIL (4.7-6.1); RDW 17.1 % (11.5-14.5); WBC 9.24 X1000 (4.8-10.8)
[2019-09-21 06:15] LABS: CALCIUM 8.5 mg/dL (8.8-10.2); CREATININE 1.5 mg/dL (0.7-1.2); POTASSIUM 4.5 mmol/L (3.5-5.1)
[2019-09-21 06:36] LABS: LYMPHS 2 % (21-51); SEGS 96 % (42-75)
--- NOTE | 2019-09-21 06:59 | Diag Imaging Result Doc PS360 ---
CHEST-PORTABLE - 09/21/2019 INDICATION: dyspnea COMPARISON: 09/20/2019 FINDINGS: Stable dense bilateral primarily interstitial infiltrates. Stable cardiomegaly. No large pleural effusion. IMPRESSION: Cardiomegaly and dense bilateral infiltrates. Pulmonary edema is suspected. Electronically signed by Socrates Bergman 09/21/2019 6:57 AM
[2019-09-21] MEDS: CALTRATE 600 + D PO SCH (08:41)
[2019-09-21] MEDS: TESSALON PO SCH ×3 (08:41→17:01)
[2019-09-21] MEDS: COZAAR PO SCH (08:41)
[2019-09-21] MEDS: ZYVOX 600 MG/D5W 600 MG/300 ML IVPB IV SCH ×2 (08:41→21:03)
[2019-09-21] MEDS: COREG PO SCH ×2 (08:41→21:03)
--- NOTE | 2019-09-21 14:10 | PROGRESS NOTE ---
DATE: 09/21/2019 INTERVAL HISTORY: The patient still requiring a fair amount of oxygen but only minimal dyspnea at this point. No further hemoptysis. No acute events overnight. No new complaints. REVIEW OF SYSTEMS: Twelve point review of systems negative except as per interval history. LABS: WBC 9.24, hemoglobin 9.5, hematocrit 32.0, platelets 202,000. Basic metabolic panel significant only for BUN 50, creatinine 1.5, glucose 128. VITALS: T-max 98.3 degrees, pulse 99, respirations 21, blood pressure 124/72, O2 saturation 91% on 2 L by nasal cannula. PHYSICAL EXAMINATION: General: No acute distress. Vitals: As above. HEENT: Normocephalic, atraumatic. Moist mucous membranes. No cervical adenopathy. Cardiovascular: Regular rate and rhythm. No murmurs noted. Pulmonary: Still some crackles at the bases right greater than left. Abdomen: Soft, nontender, nondistended. Bowel sounds positive. Extremities: Peripheral pulses intact. Trace bilateral lower extremity edema. No clubbing or cyanosis. Neurologic: Cranial nerves grossly intact. No focal deficits. Psychiatric: Normal mood and affect. Awake, alert, oriented x3. Skin: No new rashes or lesions identified. ASSESSMENT AND PLAN: 1. Acute hypoxemic respiratory failure, bilateral infiltrates. Exact etiology remains somewhat uncertain. Pulmonary edema is possible, but echocardiogram shows only stable pulmonary hypertension with normal EF. No clear diastolic dysfunction and BNP is actually improved from his previous numbers making that somewhat less likely. Pneumonia is also a possibility and he remains on antibiotics but has had no fevers, only minimal leukocytosis, and infiltrates have not really improved to speak of with antibiotic therapy. Bleomycin induced lung toxicity versus vasculitis seems most likely. Rheumatologic studies pending. Continue with steroids and antibiotics pending further recommendations and clinical course. 2. Hemoptysis has not been repeated. Blood counts stable. Monitor. 3. Coronary artery disease, pulmonary hypertension, monitor. We will likely restart aspirin if he continues to have no further hemoptysis. 4. Testicular cancer diagnosed in March of this year, status post 3 cycles of BEP. Treatment currently on hold. 5. Tobacco abuse patient counseled on cessation. 6. Possible acute kidney injury. Patient with mild increase in creatinine with diuresis. Holding further diuresis currently. Exact baseline somewhat unclear, but appears to likely be around 1.1. Monitor. [facility]ENTERMer[facility]
[2019-09-21] MEDS: LOMOTIL PO PRN (17:10)
--- NOTE | 2019-09-21 22:19 | PULMONOLOGY PROGRESS NOTE ---
DATE: 09/21/2019 SUBJECTIVE: The patient is awake, alert, and conversant. He reports he has had a good day. He has had minimal cough. He has had no hemoptysis. OBJECTIVE: The patient has afebrile for the last 24 hours. Blood pressure 146/95, heart rate 102, respiratory rate 16, oxygen saturation 89% on 2 L per nasal cannula. HEENT: Pupils are equal and reactive. Oropharynx appears clear. Neck: Supple. Chest: Crackles at the right lung base. Cardiac: S1-S2. Abdomen: Obese and soft. Extremities: Trace edema. LABORATORY AND DIAGNOSTIC DATA: Sodium 140, potassium 4.5, chloride 99, bicarbonate 28, BUN 50, creatinine 1.5, glucose 122. White blood count 9.24, hemoglobin 9.5. Chest x-ray continues to reveal bilateral pulmonary infiltrates. IMPRESSION: A 53-year-old with testicular cancer; 1. Bleomycin exposure. 2. Acute hypoxemic respiratory failure. 3. Intermittent hemoptysis with bilateral pulmonary infiltrates. 4. Elevated C-reactive protein with significant improvement following steroids. 5. Mitral regurgitation with significant underlying coronary artery disease. 6. Tobacco use at the time of discharge. PLAN: 1. Continue current dose of steroids. 2. Follow up chest x-ray and C-reactive protein tomorrow. 3. Hold diuretics today. Clearly, patient does better when he is on the dry side, but his BUN and creatinine have elevated. A portion of the increase in BUN may be related to the steroids. 4. Consider cardiology evaluation if he has additional worsening of infiltrates. cc: Juventino Santos MD
[2019-09-22] MEDS: DUONEB (A & A) INH SCH ×7 (00:18→23:07)
[2019-09-22] MEDS: ZOSYN 3.375 GM in NS 50 ML IV SCH ×4 (06:00→23:41)
[2019-09-22] MEDS: SOLU-MEDROL IV SCH ×4 (06:01→23:41)
--- NOTE | 2019-09-22 07:47 | Diag Imaging Result Doc PS360 ---
EXAM: CHEST-2 VIEWS 09/22/2019 HISTORY: abnormal exam TECHNIQUE: PA and lateral chest COMMENT: There is patchy ill-defined alveolar and interstitial opacity in both lower lung vee. This was also present on 09/21/2019 and may be slightly improved. IMPRESSION: Slightly improved pulmonary edema and/or pneumonia. Electronically signed by Rishabh Kan 09/22/2019 7:45 AM
[2019-09-22] MEDS: ZYVOX 600 MG/D5W 600 MG/300 ML IVPB IV SCH ×2 (08:22→20:48)
[2019-09-22] MEDS: TESSALON PO SCH ×4 (08:23→17:41)
[2019-09-22] MEDS: CALTRATE 600 + D PO SCH (08:23)
[2019-09-22] MEDS: COZAAR PO SCH (08:23)
[2019-09-22] MEDS: COREG PO SCH ×2 (08:23→20:48)
[2019-09-22 09:28] LABS: CREATININE 1.7 mg/dL (0.7-1.2); POTASSIUM 4.5 mmol/L (3.5-5.1)
--- NOTE | 2019-09-22 20:10 | PROGRESS NOTE ---
DATE: 09/22/2019 INTERVAL HISTORY: The patient with dyspnea on exertion but comfortable at rest. O2 requirements improving slowly. No acute events overnight. No new complaints. REVIEW OF SYSTEMS: Twelve-point review of systems negative except as per interval history. LABORATORY DATA: Sodium 137, potassium 4.5, BUN 53, creatinine 1.7, glucose 123. BNP 781. IMAGING: Slightly improved pulmonary edema and/or pneumonia. OBJECTIVE: Vital signs: T-max 98.3 degrees, pulse 94, respirations 20, blood pressure 123/77, O2 saturation 93% on 2 L by nasal cannula. General: No acute distress. HEENT: Normocephalic, atraumatic. Moist mucous membranes. No cervical adenopathy.Cardiovascular: Regular rate and rhythm. No murmurs noted. Pulmonary: Crackles at both bases, slightly improved, still right greater than left. Abdomen soft, nontender, nondistended. Bowel sounds positive. Extremities: Peripheral pulses intact. Trace lower extremity edema bilaterally. No clubbing or cyanosis. Neurologic: Cranial nerves grossly intact. No focal deficits. Psychiatric: Normal mood and affect. Awake, alert and oriented x3. Skin: No new rashes or lesions identified. ASSESSMENT AND PLAN: 1. Acute hypoxemic respiratory failure, bilateral infiltrates. Etiology remains slightly uncertain. Echocardiogram with only stable pulmonary hypertension, normal ejection fraction; no clear diastolic dysfunction. Pneumonia also a possibility, although only modest improvement on antibiotics. Bleomycin-induced lung toxicity versus vasculitis most likely. Rheumatologic studies still pending. Continuing steroids and antibiotics. Oxygen requirements finally somewhat improved and chest x-ray a little bit better, so we will likely hold the course and see what happens. Pulmonology following and assisting. We will await further recommendations from them. 2. Hemoptysis, has not been repeated. No further intervention necessary. 3. Coronary artery disease, pulmonary hypertension. Monitor. Likely restart aspirin in a couple more days if he has no further hemoptysis. 4. Testicular cancer, diagnosed March of this year, status post 3 cycles of bleomycin, etoposide and cisplatin. Treatment currently on hold, given above issues. 5. Tobacco abuse. Patient counseled on cessation. 6. Acute kidney injury. Patient with increase in creatinine with diuresis. Holding further diuresis currently. Creatinine has continued to trend up a little. We will give it another day. If it continues to worsen, we will likely have to give him a little bit of intravenous fluid.
[2019-09-23] MEDS: DUONEB (A & A) INH SCH ×6 (03:22→23:35)
[2019-09-23] MEDS: ZOSYN 3.375 GM in NS 50 ML IV SCH ×3 (05:19→17:10)
[2019-09-23] MEDS: SOLU-MEDROL IV SCH ×3 (05:19→17:11)
[2019-09-23 06:13] LABS: HEMATOCRIT 30.2 % (42.0-52.0); HEMOGLOBIN 9.1 g/dL (14.0-18.0); IMM GRAN# 0.03 X1000 (0.0-0.04); IMM GRAN% 0.3 % (0.0-0.5); LYMPH# 0.59 X1000 (1.2-3.4); LYMPH% 6.6 % (20.5-51.1); MCHC 30.1 g/dL (33-37); MCV 92.9 FL (81-99); MONO# 0.37 X1000 (0.11-0.59); MONO% 4.1 % (1.7-9.3); MPV 9.2 FL (7.4-10.4); NEUT# 7.99 X1000 (1.4-6.5); PLT 159 X1000 (130-400); RBC 3.25 XMIL (4.7-6.1); WBC 8.98 X1000 (4.8-10.8)
[2019-09-23 06:28] LABS: AGAP 15; BUN 44 mg/dL (8-22); CALCIUM 8.9 mg/dL (8.8-10.2); CHLORIDE 101 mmol/L (98-107); COSMO 290; CREATININE 1.4 mg/dL (0.7-1.2); ESTIMATED GFR > 60; GLUCOSE 123 mg/dL (70-104); POTASSIUM 4.5 mmol/L (3.5-5.1); SODIUM 139 mmol/L (136-145); TCO2 23 mmol/L (25-35)
--- NOTE | 2019-09-23 06:29 | PULMONOLOGY PROGRESS NOTE ---
DATE: 09/22/2019 SUBJECTIVE: The patient is awake and alert. He is sitting in the chair. He reports he has had a good day. He has had minimal cough. He has had no shortness of breath. He has noticed no hemoptysis. OBJECTIVE: Vital Signs: The patient has been afebrile for the last 24 hours. Blood pressure 129/74, heart rate 92, respiratory rate 20, and oxygen saturation 92%. HEENT: Pupils are equal and reactive. Oropharynx appears clear. Neck: Supple. Chest: Reveals coarse crackles at the right base. Cardiac: S1, S2. Abdomen: Obese and soft. Extremities: Without edema. LABORATORIES: Sodium 137, potassium 4.5, chloride 98, bicarbonate 32, BUN 53, creatinine 1.7. C- reactive protein is now normal at 3.75. ProBNP is also reduced at 781. Chest x-ray reveals bilateral infiltrates with marginal improvement over the last 24 hours. IMPRESSION: A 53-year-old with 1. Bleomycin exposure. 2. Hypoxemic respiratory failure. 3. Hemoptysis with resolution. 4. Elevated C-reactive protein with improvement on steroids. 5. Significant mitral regurgitation with significant underlying coronary artery disease. 6. Fluctuating pulmonary infiltrates with fluid status. 7. Nicotine addiction/tobacco use at the time of discharge. PLAN: 1. Continue current steroid dosing. 2. Continue to hold diuretics. 3. Minimize oxygen use given the bleomycin exposure. 4. Overall prognosis is guarded. cc: Juventino Santos MD
[2019-09-23] MEDS: ZYVOX 600 MG/D5W 600 MG/300 ML IVPB IV SCH ×2 (08:12→20:25)
[2019-09-23] MEDS: COREG PO SCH ×2 (08:13→20:25)
[2019-09-23] MEDS: CALTRATE 600 + D PO SCH (08:13)
[2019-09-23] MEDS: COZAAR PO SCH (08:13)
[2019-09-23] MEDS: TESSALON PO SCH ×3 (08:13→17:10)
--- NOTE | 2019-09-23 09:57 | Diag Imaging Result Doc PS360 ---
EXAM: CHEST-PORTABLE 09/23/2019 HISTORY: hypoxia TECHNIQUE: AP portable erect at 0946 COMMENT: There is alveolar and interstitial opacity in both lung bases. Considering differences in inspiration and technique this has not changed appreciably since 09/22/2019. There is cardiomegaly. IMPRESSION: Pulmonary edema and/or pneumonia with cardiomegaly. Electronically signed by Rishabh Kan 09/23/2019 9:55 AM
[2019-09-23] MEDS: VENOFER 300 MG in NS 250 ML IV SCH (11:09)
[2019-09-23] MEDS ORDERED: LASIX IV ONE (13:21)
--- NOTE | 2019-09-23 14:50 | PROGRESS NOTE ---
DATE: 09/23/2019 INTERVAL HISTORY: The patient continued to make slow but steady improvement. Reports essentially no dyspnea at this point. Oxygen requirements are continuing to come down. No new complaints. No acute events overnight. REVIEW OF SYSTEMS: Twelve point review of systems negative except as per interval history. LABS: WBC 8.9, hemoglobin 9.1, hematocrit 30.2, platelets 159,000. Sodium 139, potassium 4.5, bicarb 23, BUN 44, creatinine 1.4, glucose 123. IMAGING: Chest x-ray with largely stable pulmonary edema plus or minus pneumonia and cardiomegaly. VITALS: T-max 98.3 degrees, pulse 91, respirations 20, blood pressure 145/89, O2 saturation 95% on 1.5 L by nasal cannula. PHYSICAL EXAMINATION: General: No acute distress. Vitals: As above. HEENT: Normocephalic, atraumatic. Moist mucous membranes. No cervical adenopathy. Cardiovascular: Regular rate and rhythm. No murmurs noted. Pulmonary: Bibasilar crackles, essentially stable. Abdomen: Soft, nontender, nondistended. Bowel sounds positive. Extremities: Peripheral pulses intact. Trace lower extremity edema, stable. No clubbing or cyanosis. Neurologic: Cranial nerves grossly intact. No focal deficits. Psychiatric: Normal mood and affect. Awake, alert, oriented x3. Skin: No new rashes or lesions identified. ASSESSMENT AND PLAN: 1. Acute hypoxemic respiratory failure, bilateral infiltrates. Etiology remains uncertain. Favor bleomycin-induced lung toxicity but pulmonary hypertension related edema and pneumonia are also still certainly possibilities. Continuing steroids and antibiotics. Some slight improvement in imaging over the last couple of days and some definite improvement in his oxygen requirements. Close to weaning him off of oxygen entirely. If he continues to improve and pulmonology thinks we can change him over to by mouth steroids and antibiotics, then we may be able to consider discharge home in the next day or two. 2. Hemoptysis, has not been repeated. No further intervention necessary. 3. Coronary artery disease, pulmonary hypertension. Stable on echocardiogram this hospitalization. We will likely restart aspirin tomorrow if no further hemoptysis occurs. 4. Testicular cancer diagnosed in March of this year, status post 3 cycles of bleomycin, etoposide and cisplatin. Treatment currently on hold, given the above issues. 5. Tobacco abuse. Patient counseled on cessation. 6. Acute kidney injury. The patient's creatinine increased with diuresis. Improved today. We will likely hold Lasix one more day but if creatinine remains stable, we will likely restart tomorrow.
[2019-09-23] MEDS: MIRALAX PO SCH (17:49)
--- NOTE | 2019-09-23 22:28 | PULMONOLOGY PROGRESS NOTE ---
DATE: 09/23/2019 SUBJECTIVE: The patient is awake, alert, and conversant. He reports he has had a good day today. His shortness of breath has diminished. He has increased energy. He has not had any hemoptysis. OBJECTIVE: Vital Signs: The patient has been afebrile for the last 24 hours. Blood pressure 138/86, heart rate 94, respiratory rate 20, oxygen saturation 94% on 1.5 L per nasal cannula. HEENT: Pupils are equal and reactive. Oropharynx is clear. Neck: Supple. Chest: Reveals good air entry bilaterally with minimal crackles at the right lung base. LABORATORY DATA: White blood count 8.98, hemoglobin 9.1, platelet count 159,000. IMPRESSION: 53-year-old with: 1. Bleomycin exposure. 2. Hypoxemic respiratory failure. 3. Hemoptysis with resolution. 4. Elevated C-reactive protein, which has normalized on high-dose steroids. 5. Significant mitral regurgitation with underlying coronary artery disease. 6. Pulmonary infiltrates with marginal improvement. 7. Nicotine addiction at the time of admission. PLAN: 1. Continue steroid dosing. 2. Lasix today as tolerated. 3. Minimize oxygen use. 4. Recommend avoidance of additional bleomycin in the future. 5. Consider discharge Friday or Friday morning if he continues to demonstrate radiographic improvement. cc: Juventino Santos MD
[2019-09-24] MEDS: SOLU-MEDROL IV SCH ×5 (00:04→23:40)
[2019-09-24] MEDS: ZOSYN 3.375 GM in NS 50 ML IV SCH ×2 (00:04→06:02)
[2019-09-24] MEDS: DUONEB (A & A) INH SCH ×6 (04:15→23:13)
[2019-09-24] MEDS ORDERED: MORPHINE IV ONE (04:19)
[2019-09-24] MEDS ORDERED: LASIX IV ONE (04:29)
[2019-09-24 05:09] LABS: ALLEN TEST YES; BE 2.4 mmoll (-3.0-3.0); BLOOD TYPE ARTERIAL; HCO3-(ACT) 26.8 mmoll (20.0-26.0); METHB 1.2 % (0.0-1.5); O2(CT) 12.6 mL/dL (15.0-23.0); O2HB 95.2 % (95.0-99.0); PCO2(98.6) 46 mmHg (35-45); PO2(98.6) 91 mmHg (60-100); SAMPLE BLOOD; SAO2 98.7 % (95.0-100.0); SRATE 12 BPM; THB 9.3 g/dL (11.5-17.4); pH(98.6) 7.39 (7.35-7.45)
[2019-09-24 05:10] LABS: MODALITY BI PAP
[2019-09-24 06:08] LABS: HEMATOCRIT 30.7 % (42.0-52.0); HEMOGLOBIN 9.3 g/dL (14.0-18.0); IMM GRAN% 0.5 % (0.0-0.5); LYMPH# 0.87 X1000 (1.2-3.4); LYMPH% 4.1 % (20.5-51.1); MCH 27.9 PG (27-31); MCHC 30.3 g/dL (33-37); MCV 92.2 FL (81-99); MONO# 0.56 X1000 (0.11-0.59); MONO% 2.7 % (1.7-9.3); MPV 9.6 FL (7.4-10.4); NEUT# 19.49 X1000 (1.4-6.5); NEUT% 92.7 % (42.2-75.2); PLT 150 X1000 (130-400); RBC 3.33 XMIL (4.7-6.1); RDW 16.5 % (11.5-14.5); WBC 21.02 X1000 (4.8-10.8)
[2019-09-24 06:19] LABS: AGAP 11; BUN 49 mg/dL (8-22); CHLORIDE 100 mmol/L (98-107); COSMO 292; CREATININE 1.4 mg/dL (0.7-1.2); ESTIMATED GFR > 60; GLUCOSE 130 mg/dL (70-104); POTASSIUM 4.7 mmol/L (3.5-5.1); SODIUM 139 mmol/L (136-145); TCO2 28 mmol/L (25-35)
--- NOTE | 2019-09-24 07:03 | Diag Imaging Result Doc PS360 ---
EXAM: CHEST-PORTABLE 09/24/2019 HISTORY: SOB TECHNIQUE: AP portable at 0453 COMMENT: There is worsening alveolar opacification of both lungs particularly the right upper lobe. The heart size remains enlarged as it was on 09/23/2019. IMPRESSION: Worsening pulmonary edema/ARDS. Electronically signed by Rishabh Kan 09/24/2019 7:01 AM
[2019-09-24 07:22] LABS: ANISOCYTOSIS 1+; HYPOCHROM 1+; LYMPHS 2 % (21-51); MONO 6 % (1-9); NRBC 2 % (0-0); SEGS 92 % (42-75)
[2019-09-24] MEDS: ZYVOX 600 MG/D5W 600 MG/300 ML IVPB IV SCH ×2 (08:49→19:24)
[2019-09-24] MEDS: MERREM 1 GM in NS 50 ML IV SCH ×3 (08:49→23:40)
[2019-09-24] MEDS: COZAAR PO SCH (08:50)
[2019-09-24] MEDS: TESSALON PO SCH ×3 (08:50→16:12)
[2019-09-24] MEDS: MIRALAX PO SCH (08:50)
[2019-09-24] MEDS: CALTRATE 600 + D PO SCH (08:50)
[2019-09-24] MEDS: COREG PO SCH ×2 (08:50→22:21)
--- NOTE | 2019-09-24 09:45 | EKG Report ---
Test Performed on : 09/24/2019 09:35:35 AM Test Reason : dyspnea Blood Pressure : / mmHG Vent. Rate : 087 BPM Atrial Rate : 087 BPM P-R Int : 184 ms QRS Dur : 098 ms QT Int : 376 ms P-R-T Axes : 049 -44 086 degrees QTc Int : 452 ms Normal sinus rhythm. Possible Left atrial enlargement Left axis deviation Nonspecific T wave abnormality Abnormal ECG When compared with ECG of 10-SEP-2019 10:41, Nonspecific T wave abnormality no longer evident in Anterior leads Unconfirmed Result
[2019-09-24 10:34] LABS: ALLEN TEST YES; BE 4.7 mmoll (-3.0-3.0); BLOOD TYPE ARTERIAL; HCO3-(ACT) 28.5 mmoll (20.0-26.0); METHB 1.1 % (0.0-1.5); O2(CT) 10.5 mL/dL (15.0-23.0); PCO2(98.6) 50 mmHg (35-45); PO2(98.6) 58 mmHg (60-100); SAMPLE BLOOD; THB 8.3 g/dL (11.5-17.4); pH(98.6) 7.39 (7.35-7.45)
[2019-09-24 10:37] LABS: MODALITY BI PAP; O2HB 89.5 % (95.0-99.0)
[2019-09-24] MEDS: VENOFER 300 MG in NS 250 ML IV SCH (11:41)
--- NOTE | 2019-09-24 11:56 | PROGRESS NOTE ---
DATE: 09/24/2019 INTERVAL HISTORY: Patient with repeated dyspnea and progressive acute hypoxic respiratory failure yesterday. Eventually he was moved the ICU and placed on BiPAP. He did fairly well on BiPAP overnight but thus far has rapidly desaturated if he is taken off the BiPAP. Chest x-ray this morning shows significant worsening in pulmonary edema/ARADS. The patient is afebrile but does have significant leukocytosis this morning. The patient is actually fairly comfortable at rest with essentially no new complaints this morning. REVIEW OF SYSTEMS: A 12 point review of systems is negative except as per the interval history. LABS: WBC 21, hemoglobin 9.3, hematocrit 30.7, and platelets 150. ABG with pH of 7.39, pCO2 46, and pO2 91 on BiPAP with 100% FiO2. Sodium 139, potassium 4.7, bicarb 28, BUN 49, creatinine 1.4, and glucose 130. Troponin negative. ANC negative. Myeloperoxidase negative. Proteinase 3 negative. GBM antibody negative. LASHAY negative. CCP antibody negative. VITAL SIGNS: T-max 98.1, pulse 95, respirations 23, blood pressure 147/97, and O2 saturation 99% on BiPAP. PHYSICAL EXAMINATION: General: No acute distress on BiPAP. Vital Signs: As above. HEENT: Normocephalic, atraumatic. Moist mucous membranes. Neck: No cervical adenopathy. Cardiovascular: Regular rate and rhythm. No murmurs noted. Pulmonary: Good air entry throughout. No wheezing. Still some crackles at the bases but surprisingly clear given the chest x-ray. Abdomen: Soft, nontender, and nondistended. Bowel sounds positive. Extremities: Peripheral pulses intact. No clubbing or cyanosis. Neurological: Cranial nerves are grossly intact. No focal deficits. Psychiatric: Normal mood and affect. Awake, alert, oriented times 3. Skin: Warm and dry. No new rashes. ASSESSMENT AND PLAN: 1. Acute hypoxic respiratory failure, bilateral infiltrates. Favor bleomycin-induced lung toxicity. The patient does have pulmonary hypertension but stable from previous and good EF. The hospital course has really not been consistent with an infection although he remains on antibiotics for now. Given that he improved initially but then had sudden worsening again last night he was moved to the ICU and placed on BiPAP which he is fairly stable on currently. He had been getting diuresis but that was being held because of a bump in his creatinine. He was given additional Lasix last night and it looks like that may be improving his oxygenation some. Given the decompensation last night and the bump in white count I discussed the case with Infectious Disease. They also felt that despite leukocytosis this was unlikely to be infection related. They recommended checking procalcitonin and if that is negative then discontinue antibiotics. Continue supportive care with steroids and DuoNebs. All rheumatologic studies have come back negative as above. 2. Hemoptysis. He had one episode earlier in the hospitalization and then another last night. Both were self-limited and fairly small amounts. Blood count is stable today. We will monitor but likely no need for acute intervention at this point. 3. Coronary artery disease, pulmonary hypertension. Pulmonary hypertension is stable on echocardiogram. I initially had planned on restarting aspirin today but given hemoptysis last night we will hold off on that. 4. Testicular cancer. Diagnosed in March of this year. Status post 3 cycles of BC. Treatment is currently on hold given the above problems. 5. Tobacco abuse. Patient was counseled on cessation. 6. Acute kidney injury likely related to aggressive diuresis. It improved with withholding diuresis but never quite returned to baseline though. We will see what it does now that we have had to give additional Lasix to try to improve his respiratory status.
[2019-09-24] MEDS: NORVASC PO SCH (12:48)
[2019-09-24] MEDS ORDERED: APRESOLINE IV PRN (15:19)
--- NOTE | 2019-09-24 17:33 | INFECTIOUS DISEASE CONSULT REP ---
DATE: 09/24/2019 CONCLUSION: The patient has bilateral pulmonary infiltrates. I do not think that they are infectious. I do not think an infection is causing the infiltrates. I think the patient's white blood cell count is elevated due to steroids, even though the patient has been on steroids for close to a week. Patient has one of two blood cultures drawn which grew a coagulase-negative staph. This I think is a contaminant. RECOMMENDATIONS: I suggest checking a procalcitonin level. The positive blood culture for coagulase-negative Staph I think is a contaminant and does not require antibiotic treatment. DISCUSSION: The patient was unable to provide a history because he is wearing a BiPAP mask. The patient was admitted the hospital because of progressive shortness of breath and coughing up blood. The patient's CBC shows a white count of 21,020, hemoglobin 9.3, and platelet count 150,000. Blood gases show a pH of 7.39, a PO2 of 91, a pCO2 of 46. Creatinine is 1.4. GFR is greater than 60. Chest x-ray shows worsening pulmonary edema/ARDS. REVIEW OF SYSTEMS: The patient was able to shake his head yes or no to my questions. I asked him if he had any problems seeing or hearing any indicated that he does not. He also indicated he does not have a stiff neck. He has not been having chest pain and he has not been having nausea, vomiting, or diarrhea. He also has not had any trouble passing his urine or his bowel movements. He also does not have joint pain or muscle aching or skin rashes. PAST MEDICAL HISTORY: Positive for testicular cancer, congestive heart failure, and hypertension. PAST SURGICAL HISTORY: Positive for left knees surgery and removal of the left testicle. ALLERGIES: The only allergy listed chew is shellfish. HOME MEDICATIONS: The patient patient's home medications include Coreg, Lomotil, Lasix, Levaquin, Imodium, Cozaar. SOCIAL HISTORY: The patient is a former smoker. He does not drink alcoholic beverages or abuse drugs. FAMILY HISTORY: There is no history of coronary artery disease. PHYSICAL EXAMINATION: Vital Signs: Temperature is 97.8 degrees, pulse 87, respirations 39, blood pressure 165/91. Patient is 6 feet tall, weighs 245 pounds. General: This is an obese, middle- aged male. He does seem to be dyspneic at rest. Head/eyes/ears/nose/throat: He can hear my spoken words and see near objects. I did not notice any white patches on his tongue. Neck: No meningismus. Lungs: Clear to auscultation. Cardiovascular: Heart rate is regular. Abdomen: Soft and nontender. Neurologic: The patient is alert he can move his extremities. There is no tremor. Integument: Integument no rash noted. Thank you for the consult. cc: Kilo Mosley MD MTDD
--- NOTE | 2019-09-24 18:03 | CARDIOLOGY CONSULTATION ---
DATE: 09/24/2019 Cardiology was consulted for worsening shortness of breath, evaluate for mitral regurgitation. The patient had been doing well yesterday. He was alert, conversant and was scheduled to go home this weekend. This morning he developed sudden shortness of breath and is on BiPAP, and chest x- ray revealed worsening alveolar opacification of both lungs, particularly the right upper lobe with the impression of worsening pulmonary edema, ARDS. He has been on steroids; however, white count this morning was 21 with previous white counts 11.98 and 8.98. Mr. Ayon is a 53-year-old black gentleman with a history of coronary artery disease, testicular cancer with evidence of having had chemotherapy. Patient has known coronary artery disease, cardiomyopathy with LV dysfunction. Last ejection fraction by echocardiogram was 57% on 09/10/2019 with moderate mitral regurgitation, pulmonary artery systolic pressure of 63 mmHg. He has known coronary artery disease. Last cardiac catheterization 03/18/2019: Left main was normal. LAD focal 40%, circumflex proximal 100%. Distal circumflex and branches had [id number] collaterals. RCA focal 30% proximal, distal 90% focal, PDA 100% occluded. Ejection fraction by cardiac catheterization was 40%. The patient does not complain of chest pain. He complains of shortness of breath at the present time. The patient was admitted and has the following diagnoses: 1. Hypoxemic respiratory failure, pulmonary edema. Given history of bleomycin for treatment for testicular cancer likely cause of pulmonary condition with ARDS picture. 2. Patient has history of tobacco abuse. The patient has been receiving steroids and antibiotics and had improved significantly since his hospitalization until the sudden worsening today. REVIEW OF SYSTEMS: A 14-point review of systems was done. GI System: There is no history of nausea, vomiting, or diarrhea. There is no history of hematemesis or melena. Central nervous system: No focal weakness to suggest a CVA, TIA. System: There is no dysuria or hematuria. PAST MEDICAL HISTORY: 1. Testicular cancer. 2. History of cocaine abuse. 3. Hypertension. 4. Coronary artery disease. As above. 5. Moderate mitral regurgitation with preserved left ventricular systolic function. Current echocardiogram. 6. History of ischemic cardiomyopathy in the past. 7. Hypertension. HOME MEDICATIONS: Include aspirin 81 mg a day, losartan 25, Coreg 25 b.i.d., Lasix 40 mg a day, loperamide as needed, levofloxacin and a inhalers. CURRENT MEDICATIONS: Include: 1. Zyvox. 2. Methylprednisone 60 mg IV q.6. 3. Meropenem. 4. He was given Lasix 40 IV and 60 IV this morning. ALLERGIES: The patient is allergic to shellfish. PHYSICAL EXAMINATION: Blood pressure was 147/97. First and second heart sounds were heard. He had bilateral expiratory wheeze and inspiratory crepitations. Could not appreciate a murmur given the loud expiratory sounds. Abdomen was soft. Respiratory rate 37. Patient was afebrile. Blood pressure was 147/97. Central nervous system was alert, moving all 4 extremities. Detailed central nervous system examination not performed. Examination of his extremities revealed mild pedal edema. LABORATORY EXAMINATION: Revealed. Sodium 139, potassium 4.7 BUN 49, creatinine 1.4. Troponin repeated this morning was negative. Electrocardiogram did not reveal any acute ST-T changes. Hematology: WBC 21, hemoglobin 9.3, hematocrit 30, platelet count off 150. ASSESSMENT: Mr. Preston Ayon is a 53-year-old Afro-German gentleman with history of coronary artery disease, left ventricular dysfunction in the past, moderate mitral regurgitation with preserved left ventricular systolic function, history of hypertension, has had testicular cancer, was treated with bleomycin, comes in with increasing shortness of breath, respiratory failure, ARDS. He had been progressing well and discharge was contemplated; however, today he went into acute respiratory failure, is on BiPAP and chest x-ray revealed pulmonary edema versus in addition he had infiltrate. He had right opacification of the right upper lobe. Has elevated white count, which is significantly different from yesterday. This could be infective etiology with maybe that he also has had some aspiration. Regardless, from a cardiac standpoint, the question is whether or not given his known coronary artery disease, there is significant ischemia causing worsening of his mitral regurgitation to account for acute decompensation. PLAN: We will get serial cardiac enzymes. First set of cardiac enzymes were negative. We will get an echocardiogram again to evaluate for mitral regurgitation. Given his known significant coronary artery disease involving the circumflex and the right coronary artery, he may benefit from a transesophageal echocardiogram to evaluate for the mitral regurgitation given his sudden decompensation unless aspiration is the etiology of his respiratory decompensation. Thank you for the consult. We will follow along. I have had a detailed discussion with Dr. Santos. cc: Manoj Argueta MD [facility]
--- NOTE | 2019-09-24 20:24 | ECHO REPORT ---
ORDER DATE: 09/24/2019 INDICATION: Dyspnea, pulmonary edema, pericardial effusion. FINDINGS: 1. This is a somewhat limited difficult study. The right atrium is difficult to visualize. 2. Mild tricuspid regurgitation. 3. Normal RV size and systolic function. 4. No significant pulmonic insufficiency. 5. Dilated left atrium that is moderate with a dimension of 5.4 cm. 6. No mitral prolapse. Mild mitral regurgitation. 7. Normal LV size, end-diastolic dimension of 5.5 cm. Normal wall thicknesses with a posterior and interventricular septal wall thickness of 0.9 cm each. Normal LV systolic function. Estimated EF of 60%. 8. Aortic valve appears to open well with no clear evidence of stenosis or insufficiency. 9. Aorta appears normal in visualized segments. 10. I do not see any clear pericardial effusion identified. cc: MD Xochitl Alvarez PA
[2019-09-24] MEDS: LASIX IV SCH (20:58)
--- NOTE | 2019-09-24 21:10 | PULMONOLOGY PROGRESS NOTE ---
DATE: 09/24/2019 INTERIM HISTORY: The patient was doing well and then developed acute worsening shortness of breath and increasing oxygen requirements. The patient was on 2 L per nasal cannula last evening, and now is requiring 100% O2 and BiPAP. OBJECTIVE: Maximum temperature in the last 24 hours 98.4 degrees. HEENT: Pupils are equal and reactive. Oropharynx is clear. Neck is supple. Chest reveals coarse crackles bilaterally. Cardiac exam: S1, S2. Abdomen is soft and obese. Extremities reveal trace to 1+ peripheral edema. LABORATORY DATA: Lactate 3.90. Troponin 0.01. Sodium 139, potassium 4.0, chloride 100, bicarbonate 28, BUN 49, creatinine 1.4. White blood count 21,000, hemoglobin 9.3, platelet count 150,000 with a left shift. DIAGNOSTIC DATA: Chest x-ray reveals acute worsening bilateral infiltrates, right greater than left. IMPRESSION: A 53-year-old with: 1. Bleomycin exposure. 2. Hypoxemic respiratory failure. 3. Hemoptysis, now recurrent. 4. Elevated C-reactive protein, which normalized on high-dose steroids. 5. Significant mitral regurgitation with underlying coronary artery disease. 6. Pulmonary infiltrates, with marked worsening over the last 24 hours. 7. Nicotine addiction. DISCUSSION: A 53-year-old with problems outlined above. It has been difficult to determine whether this was related to drug injury such as bleomycin or could be related to intermittent acute LV dysfunction associated with mitral valve and coronary artery disease. The patient was clinically improving, he was on minimal oxygen requirements, his chest x-ray was slowly improving, and now he has had acute decompensation. This would not be typical for a drug-induced lung injury. It is possible he has a combination of cardiac and pulmonary dysfunction. PLAN: 1. Transfer to the intensive care unit for higher level of care (this has been completed). 2. Initiate BiPAP and minimize oxygen as tolerated, although he is requiring a significant amount of oxygen at this juncture. 3. Consult Cardiology to help with management of CAD and LV dysfunction. 4. Overall prognosis is guarded. Time spent in critical care management: 30 minutes. cc: Juventino Santos MD
[2019-09-24] MEDS: AMBIEN PO PRN (22:21)
[2019-09-25] MEDS: DUONEB (A & A) INH SCH ×6 (03:33→23:18)
[2019-09-25] MEDS: SOLU-MEDROL IV SCH ×3 (05:01→17:16)
[2019-09-25 05:04] LABS: ALLEN TEST YES; BE 11.3 mmoll (-3.0-3.0); BLOOD TYPE ARTERIAL; HCO3-(ACT) 33.7 mmoll (20.0-26.0); METHB 1.6 % (0.0-1.5); O2(CT) 11.1 mL/dL (15.0-23.0); O2HB 94.7 % (95.0-99.0); PCO2(98.6) 47 mmHg (35-45); PO2(98.6) 87 mmHg (60-100); SAMPLE BLOOD; THB 8.2 g/dL (11.5-17.4); pH(98.6) 7.49 (7.35-7.45)
[2019-09-25 05:15] LABS: MODALITY BI PAP
[2019-09-25 05:42] LABS: AGAP 12; BUN 44 mg/dL (8-22); CALCIUM 9.3 mg/dL (8.8-10.2); CHLORIDE 96 mmol/L (98-107); COSMO 293; CREATININE 1.1 mg/dL (0.7-1.2); ESTIMATED GFR > 60; GLUCOSE 141 mg/dL (70-104); POTASSIUM 4.8 mmol/L (3.5-5.1); SODIUM 140 mmol/L (136-145); TCO2 32 mmol/L (25-35)
--- NOTE | 2019-09-25 06:19 | Diag Imaging Result Doc PS360 ---
EXAM: CHEST-PORTABLE HISTORY: dyspnea TECHNIQUE: Single view COMPARISON: 09/24/2019 FINDINGS: There are dense bilateral infiltrates. No significant change on the left. The infiltrates on the right may be slightly less dense. The heart isn't enlarged. Trace right pleural fluid. IMPRESSION: Slight interval improvement Electronically signed by Alan Garcai 09/25/2019 6:17 AM
[2019-09-25] MEDS: MERREM 1 GM in NS 50 ML IV SCH ×2 (07:23→15:47)
[2019-09-25] MEDS: ZYVOX 600 MG/D5W 600 MG/300 ML IVPB IV SCH ×2 (07:23→19:48)
[2019-09-25 07:25] LABS: HEMATOCRIT 27.5 % (42.0-52.0); HEMOGLOBIN 8.4 g/dL (14.0-18.0); IMM GRAN# 0.08 X1000 (0.0-0.04); LYMPH# 0.32 X1000 (1.2-3.4); LYMPH% 3.9 % (20.5-51.1); MCH 28.1 PG (27-31); MCHC 30.5 g/dL (33-37); MONO# 0.14 X1000 (0.11-0.59); MONO% 1.7 % (1.7-9.3); MPV 9.9 FL (7.4-10.4); NEUT# 7.69 X1000 (1.4-6.5); NEUT% 93.4 % (42.2-75.2); PLT 110 X1000 (130-400); RBC 2.99 XMIL (4.7-6.1); RDW 16.4 % (11.5-14.5); WBC 8.23 X1000 (4.8-10.8)
[2019-09-25 07:56] LABS: BANDS 2 % (0-1); LYMPHS 6 % (21-51); MONO 2 % (1-9); SEGS 90 % (42-75)
[2019-09-25] MEDS: CALTRATE 600 + D PO SCH (08:20)
[2019-09-25] MEDS: TESSALON PO SCH ×3 (08:20→17:17)
[2019-09-25] MEDS: NORVASC PO SCH (08:20)
[2019-09-25] MEDS: MIRALAX PO SCH (08:20)
[2019-09-25] MEDS: COREG PO SCH ×2 (08:20→21:23)
[2019-09-25] MEDS: COZAAR PO SCH (08:20)
[2019-09-25] MEDS: LASIX IV SCH ×2 (08:21→21:22)
--- NOTE | 2019-09-25 16:24 | PROGRESS NOTE ---
DATE: 09/25/2019 SUBJECTIVE: The patient notes a feels a lot better this morning. Denies any fevers, cough. States shortness of breath is improved. PHYSICAL EXAMINATION: Vital signs: Temperature 97.6, pulse 80, respiratory 29, BP 147/92. General: Patient is awake, alert, currently he is on Ventimask non-rebreather. Did use BiPAP overnight. Speech is regular. Memory appears intact. HEENT: Normocephalic. Neck: Supple. Cardiovascular: Regular rate. Chest: No wheezing, no apparent crackles currently. Does have some rhonchi throughout. Abdomen: Soft nondistended. Extremities: Moves all extremities. Neurologic: No changes. ASSESSMENT: 1. Acute hypoxic respiratory failure. 2. Bilateral pneumonia. 3. Hemoptysis. 4. Testicular cancer with a history of bleomycin. 5. Moderate mitral regurgitation. 6. Chronic tobacco abuse. 7. Leukocytosis. His white count was 8 and 8 for last few days and increased yesterday at 21 today back down to 8. Unsure if this is his improvement or yesterday's 21,000 is a lab error. 8. Hyperglycemia. 9. Anemia of chronic disease. PLAN: We will continue patient in the hospital. We will discuss with pulmonology to go back down to the floor and will follow. TIME SPENT: 32 minutes were spent. cc: Chun Chan MD [facility]
--- NOTE | 2019-09-25 17:39 | EKG Report ---
Test Performed on : 09/25/2019 06:24:58 AM Test Reason : dyspnea Blood Pressure : / mmHG Vent. Rate : 083 BPM Atrial Rate : 083 BPM P-R Int : 172 ms QRS Dur : 098 ms QT Int : 404 ms P-R-T Axes : 037 -28 092 degrees QTc Int : 474 ms Normal sinus rhythm. Possible Left atrial enlargement Nonspecific T wave abnormality Prolonged QT Abnormal ECG When compared with ECG of 24-SEP-2019 09:35, (Unconfirmed) Non-specific change in ST segment in Lateral leads Unconfirmed Result
--- NOTE | 2019-09-25 20:34 | PROGRESS NOTE ---
DATE: 09/25/2019 SUBJECTIVE: The patient continues with significant hypoxemia, requiring supplemental oxygen with nonrebreather. He denies shortness of breath or chest discomfort. There has been no orthopnea. OBJECTIVE: Blood pressure 130/93, heart rate 88, oxygen saturation 94%. There is no significant jugular venous distention. Auscultation of the chest reveals inspiratory crackles bilaterally. Cardiac exam reveals a regular rate and rhythm without appreciable murmur or gallop. Extremities demonstrate trace edema. LABORATORY DATA: Includes white blood cell count 8.23, hematocrit 27.5, hemoglobin 8.4, platelet count 110,000. Sodium 140, potassium 4.8, chloride 96, carbon dioxide 32, BUN 44, creatinine 1.1, glucose 141. DIAGNOSTIC DATA: Limited followup echocardiography done yesterday indicates left ventricular ejection fraction around 60% and mild mitral regurgitation. IMPRESSION: 1. Hypoxemic respiratory failure with diffuse infiltrates on chest x-ray. This has not improved despite diuresis, and I suspect he more likely has acute pulmonary process possibly related to bleomycin. 2. Atherosclerotic coronary disease. The patient's left ventricular ejection fraction appears improved compared to 6 months ago. Mitral regurgitation has been rated at mild on recent echocardiography, and was moderate on admission echocardiography. 3. Testicular cancer, metastatic. The patient is status post chemotherapy. 4. Hypertension. RECOMMENDATIONS: 1. Continue to diurese for now; however, if the patient's hypoxemia does not improve despite further diuresis, as increasing degree of prerenal azotemia is manifest, further diuresis may need to be curtailed. 2. Continue medical management of the patient's coronary atherosclerosis. cc: Jesse Rehman MD
--- NOTE | 2019-09-25 20:36 | PULMONOLOGY PROGRESS NOTE ---
DATE: 09/25/2019 SUBJECTIVE: The patient is awake, alert, and conversant. His breathing has improved. He has had good diuresis of almost 3.6 L over the last 24 hours. OBJECTIVE: Blood pressure 140/88, heart rate 90, respiratory rate 25, oxygen saturation 93% on non-rebreather. HEENT: Pupils are equal and reactive. Oropharynx appears clear. Neck: Supple. Chest: Crackles bilaterally. Cardiac: S1-S2. Abdomen: Obese and soft. Extremities: Peripheral edema +1. LABORATORY AND DIAGNOSTIC DATA: Chest x-ray reveals mild improvement in bilateral infiltrates. White blood count 8.29, hemoglobin 8.4, platelet count 110,000. Sodium 140, potassium 4.8, chloride 96, bicarbonate 32, BUN 44, creatinine 1.1. IMPRESSION: A 54-year-old with: 1. Bleomycin exposure. 2. Mitral regurgitation. 3. Coronary artery disease. 4. Hypoxemic respiratory failure. 5. Recurrent pulmonary infiltrates with improvement with diuresis. 6. Nicotine addiction. PLAN: 1. Continue to attempt balanced to negative fluid balance. 2. Cycle oxygen and BiPAP. 3. Minimize oxygen as tolerated. 4. Overall prognosis is guarded given recurrent decompensation despite current treatments. cc: Juventino Santos MD
[2019-09-25] MEDS: AMBIEN PO PRN (21:23)
[2019-09-26] MEDS: MERREM 1 GM in NS 50 ML IV SCH ×4 (00:21→15:37)
[2019-09-26] MEDS: SOLU-MEDROL IV SCH ×4 (00:21→17:00)
[2019-09-26] MEDS: DUONEB (A & A) INH SCH ×6 (03:07→23:35)
[2019-09-26] MEDS: TESSALON PO SCH ×3 (08:07→17:01)
[2019-09-26] MEDS: MIRALAX PO SCH (08:07)
[2019-09-26] MEDS: NORVASC PO SCH (08:07)
[2019-09-26] MEDS: ZYVOX 600 MG/D5W 600 MG/300 ML IVPB IV SCH ×2 (08:07→19:41)
[2019-09-26] MEDS: LASIX IV SCH ×2 (08:07→21:36)
[2019-09-26] MEDS: CALTRATE 600 + D PO SCH (08:07)
[2019-09-26] MEDS: COREG PO SCH ×2 (08:07→21:37)
[2019-09-26] MEDS: COZAAR PO SCH (08:08)
--- NOTE | 2019-09-26 10:27 | INFECTIOUS DISEASE PROGRESS NO ---
DATE: 09/26/2019 PRESENT ILLNESS: The patient has bilateral pulmonary infiltrates. It is my opinion that the infiltrates are not due to an infection. The patient has 1 out of 2 blood cultures growing a coagulase-negative Staph. I think this is a contaminant. MEDICATIONS: The patient is receiving Zyvox and meropenem. PHYSICAL EXAMINATION: Vital Signs: Temperature is 98 degrees, pulse 84, respirations 26, blood pressure 142/92. General: This is an obese, middle-aged male. He is in no acute distress. HEENT: He can hear my spoken words and see near objects. He does not have any white patches on his tongue. Neck: No pain with movement of his neck. Lungs: Clear to auscultation. Cardiovascular: Regular heart rate. Abdomen: Soft, nontender. Neurologic: The patient is alert. He can move his extremities. There is no tremor. LABORATORY DATA: The patient has bilateral pulmonary infiltrates. As I mentioned above, I doubt that this is due to an infection because first of all, the patient's procalcitonin level is 0.16, which translates into saying that it is unlikely the patient has pneumonia. The patient's CBC shows a white count of 8230, hemoglobin 8.4, and platelet count 110,000. Blood gases show a pH of 7.49, a PO2 of 87, and a pCO2 of 47. Creatinine is 1.1. GFR is greater than 60. One out of two blood cultures are growing a coagulase-negative Staph. I think this is a contaminant. ASSESSMENT AND PLAN: Because of the patient's low procalcitonin level and the fact that he is in no respiratory distress and he is not febrile and he does not have a leukocytosis, I think that the patient's infiltrates are not due to pneumonia. Likewise, I think the 1 out of 2 blood cultures that is growing a coagulase-negative Staphylococcus is a contaminant and does not require antibiotic treatment. Therefore, I am going to discontinue the patient's two antibiotics, namely meropenem and Zyvox, because the positive blood culture is a contaminant and because I think the patient does not have pneumonia. I am going to be signing off this patient's case, but I am available to see him on an as needed basis. COMORBIDITIES: I am uncertain as to what is causing the patient's pulmonary infiltrates. Therefore, I am not sure if he has any comorbidities that would enhance his likelihood of having pulmonary infiltrates. cc: Kilo Mosley MD [facility]
--- NOTE | 2019-09-26 11:13 | Diag Imaging Result Doc PS360 ---
EXAM: CHEST-PORTABLE HISTORY: resp failure TECHNIQUE: Single view COMPARISON: 09/25/2019 FINDINGS: There are bilateral infiltrates similar to the prior exam. Inspiratory effort is similar to the prior study. Mild cardiomegaly. Small right pleural effusion. IMPRESSION: Stable chest. No interval improvement. Electronically signed by Alan Garcia 09/26/2019 11:11 AM
[2019-09-26] MEDS: LOMOTIL PO PRN (13:15)
--- NOTE | 2019-09-26 13:21 | PULMONOLOGY PROGRESS NOTE ---
DATE: 09/26/2019 SUBJECTIVE: The patient is awake and alert. He feels a little better. He is anxious to begin eating. OBJECTIVE: Vital Signs: Blood pressure 118/89, heart rate 87, respiratory rate 19 to 36, oxygen saturation 93%. Intake and output suggests that he has been significantly negative for the last 5 days. HEENT: Pupils are equal and reactive. Oropharynx appears clear. Neck: Supple. Chest: Crackles bilaterally. Cardiac: S1, S2. Abdomen: Obese and soft. Extremities: Without edema. IMAGING: Chest x-ray reveals bilateral infiltrates with mild improvement predominantly on the left. IMPRESSION: A 54-year-old with: 1. History of bleomycin exposure. 2. Recurrent worsening and improvement in infiltrates. 3. Coronary artery disease. 4. Hypoxemic respiratory failure. 5. Coronary artery disease and mitral regurgitation. PLAN: 1. Attempt to maintain negative balance if kidneys will tolerate. 2. Cycle oxygen and BiPAP. 3. Minimize oxygen given bleomycin history. 4. Guarded prognosis. cc: Juventino Santos MD
[2019-09-26] MEDS ORDERED: ASPIRIN PO ONE (14:33)
--- NOTE | 2019-09-26 14:38 | PROGRESS NOTE ---
DATE: 09/26/2019 SUBJECTIVE: The patient notes that he feels fine. He denies any current changes. Denies any fevers or chills. States overall, his symptoms seem to be improving. PHYSICAL EXAMINATION: Vital Signs: He is afebrile, pulse 82, respiratory rate 25 to 30, BP 142/95 to 165/101, saturation 94% on a nonrebreather. HEENT: Normocephalic. Neck: Supple. Cardiovascular: Regular rate. Chest: Clear. Abdomen: Soft. Extremities: Moves all extremities. ASSESSMENT: 1. Acute hypoxic respiratory failure, still requiring nonrebreather. 2. Bilateral infiltrates on his chest x-ray. Infectious Disease does not believe as though this is pneumonia given that his pre-calcitonin is low. Therefore, antibiotics have been stopped, and we will follow. 3. Testicular cancer with a history of bleomycin exposure. 4. Moderate mitral regurgitation. 5. Leukocytosis is back to normal. 6. Hyperglycemia. PLAN: We are going to continue the patient in the ICU given the fact that he is still requiring a nonrebreather and that his blood pressures are elevated at 165/101. These were certainly better earlier. We are going to continue to follow this for now. Hopefully, he can wean down on his oxygen requirement, and transition to the floor. Certainly concerning that he is not improving at this point. I am very concerned that he may not improve. cc: Chun Chan MD
--- NOTE | 2019-09-26 15:21 | PROGRESS NOTE ---
DATE: 09/26/2019 SUBJECTIVE: Patient denies chest discomfort or shortness of breath on supplemental oxygen per 100% nonrebreather mask. OBJECTIVE: Vital Signs: Blood pressure 133/84, heart rate 86 and regular. Oxygen saturation 89%. There is no significant jugular venous distention. Chest: Fairly clear to auscultation bilaterally. Cardiac: Reveals a regular rate and rhythm without appreciable murmur or gallop. There is no evidence of peripheral edema. IMAGING: Chest x-ray demonstrates bilateral infiltrates without much change. IMPRESSION: 1. Hypoxemic respiratory failure with diffuse infiltrates on chest x-ray. This has not improved despite several days of diuresis and I suspect he more likely has acute pulmonary process possibly related to bleomycin. 2. Atherosclerotic coronary disease. Left ventricular ejection fraction in normal range with mild mitral regurgitation on most recent echocardiography and moderate mitral regurgitation on previous echocardiography. 3. Metastatic testicular cancer. Patient is status post recent chemotherapy which included bleomycin. 4. Hypertension. RECOMMENDATIONS: 1. Continue diuresis for now. If increasing degree of prerenal azotemia manifests, further diuresis may need to be curtailed. 2. Continue medical management of patient's coronary atherosclerosis. cc: Jesse Rehman MD
[2019-09-26] MEDS: AMBIEN PO PRN (21:43)
[2019-09-27] MEDS: SOLU-MEDROL IV SCH ×5 (00:17→23:41)
[2019-09-27] MEDS: MERREM 1 GM in NS 50 ML IV SCH ×2 (00:17→08:01)
[2019-09-27] MEDS: DUONEB (A & A) INH SCH ×6 (03:26→23:38)
[2019-09-27 06:33] LABS: HEMATOCRIT 27.7 % (42.0-52.0); HEMOGLOBIN 8.8 g/dL (14.0-18.0); MCH 28.7 PG (27-31); MCHC 31.8 g/dL (33-37); MCV 90.2 FL (81-99); MPV 10.3 FL (7.4-10.4); RBC 3.07 XMIL (4.7-6.1); RDW 16.4 % (11.5-14.5); WBC 7.51 X1000 (4.8-10.8)
--- NOTE | 2019-09-27 06:51 | Diag Imaging Result Doc PS360 ---
CHEST-PORTABLE - 09/27/2019 INDICATION: abnormal exam COMPARISON: 09/26/2019 FINDINGS: Stable cardiomegaly. Stable extensive bilateral mixed, primarily interstitial infiltrates. No pneumothorax or large pleural effusion. IMPRESSION: No change from prior. Electronically signed by Socrates Bergman 09/27/2019 6:48 AM
[2019-09-27 06:58] LABS: ALB/GLOB RATIO 1.2; ALBUMIN 3.5 g/dL (3.5-5.0); CALCIUM 8.4 mg/dL (8.8-10.2); CREATININE 1.7 mg/dL (0.7-1.2); MAGNESIUM 2.6 mg/dL (1.5-2.7); POTASSIUM 4.9 mmol/L (3.5-5.1); TOTAL BILIRUBIN 1.17 mg/dL (0.20-1.00); TOTAL PROTEIN 6.5 g/dL (6.3-8.3)
[2019-09-27] MEDS: NORVASC PO SCH (08:01)
[2019-09-27] MEDS: LASIX IV SCH (08:01)
[2019-09-27] MEDS: ASPIRIN PO SCH (08:01)
[2019-09-27] MEDS: MIRALAX PO SCH (08:01)
[2019-09-27] MEDS: TESSALON PO SCH ×3 (08:01→16:34)
[2019-09-27] MEDS: ZYVOX 600 MG/D5W 600 MG/300 ML IVPB IV SCH (08:01)
[2019-09-27] MEDS: CALTRATE 600 + D PO SCH (08:01)
[2019-09-27] MEDS: COZAAR PO SCH (08:02)
[2019-09-27] MEDS: COREG PO SCH ×2 (09:23→21:09)
--- NOTE | 2019-09-27 14:01 | PROGRESS NOTE ---
DATE: 09/27/2019 SUBJECTIVE: The patient has no complaints. States he feels okay. PHYSICAL EXAMINATION: Vital Signs: He is afebrile, pulse 80, respiratory rate 22 to 26, BP 137/98. He is still on a nonrebreather. HEENT: Normocephalic. Neck: Supple. Cardiovascular: Regular rate. No murmurs. Chest: Good air movement. No current wheezing. Abdomen: Soft, nondistended. Extremities: Moves all extremities. Neurologic: No focal changes. He is awake, alert, oriented. ASSESSMENT: 1. Hypoxic respiratory failure of undetermined origin, likely secondary to bleomycin changes. 2. Hemoptysis. 3. Testicular cancer. 4. Moderate mitral regurgitation. 5. Chronic tobacco abuse. 6. Leukocytosis, resolved. 7. Anemia. PLAN: Unfortunately, we are going to continue in the ICU as he is still requiring 100% nonrebreather for oxygenation. Concerned that he may not improve at this point. Certainly, prognosis is guarded. We will continue to follow. Continue to attempt to wean oxygen as tolerated. cc: Chun Chan MD [facility]
--- NOTE | 2019-09-27 21:49 | PULMONOLOGY PROGRESS NOTE ---
DATE: 09/27/2019 SUBJECTIVE: The patient is awake and alert. He denies significant dyspnea. He denies hemoptysis. OBJECTIVE: Vital Signs: The patient has been afebrile for the last 24 hours. Blood pressure 123/83, On 70% face mask. HEENT: Pupils are equal and reactive. Oropharynx appears clear. Neck: Supple. Chest: Reveals faint crackles bilaterally. Cardiac exam: S1, S2. Abdomen: Obese and soft. Extremities: Reveal trace edema. IMAGING: Chest x-ray reveals cardiomegaly and stable bilateral infiltrates. LABORATORY DATA: White blood count 7.51, hemoglobin 8.8, platelet count 85,000, arterial blood gas not performed this morning. Chemistries: Sodium 137, potassium 4.9, chloride 92, bicarbonate 31, BUN 80, creatinine 1.7. IMPRESSION: A 54-year-old with: 1. Bleomycin exposure for treatment of testicular cancer. 2. Fluctuating infiltrates. 3. Coronary artery disease with mitral regurgitation. 4. Hypoxemic respiratory failure. 5. Prerenal status. DISCUSSION: A 54-year-old with problems outlined above. The patient will not tolerate additional diuresis. The patient's oxygen requirements have increased and are now between 80% and 100% FiO2. PLAN: 1. Hold additional diuretics today given worsening prerenal status. 2. Minimize oxygen requirements. 3. Continue current steroid dosing. 4. Prognosis is guarded. cc: Juventino Santos MD [facility]
[2019-09-27] MEDS: AMBIEN PO PRN (22:40)
[2019-09-27] MEDS: LOMOTIL PO PRN (22:40)
[2019-09-28] MEDS: DUONEB (A & A) INH SCH ×6 (03:39→23:47)
[2019-09-28 05:50] LABS: ALLEN TEST YES; BE 7.2 mmoll (-3.0-3.0); BLOOD TYPE ARTERIAL; HCO3-(ACT) 30.4 mmoll (20.0-26.0); METHB 0.7 % (0.0-1.5); O2(CT) 11.5 mL/dL (15.0-23.0); O2HB 90.2 % (95.0-99.0); PCO2(98.6) 41 mmHg (35-45); PO2(98.6) 59 mmHg (60-100); SAMPLE BLOOD; SAO2 93.6 % (95.0-100.0); pH(98.6) 7.49 (7.35-7.45)
[2019-09-28] MEDS: SOLU-MEDROL IV SCH ×4 (05:52→23:04)
[2019-09-28 05:54] LABS: MODALITY HIGH FLOW NASAL CAN
[2019-09-28 06:47] LABS: HEMOGLOBIN 8.2 g/dL (14.0-18.0); IMM GRAN# 0.04 X1000 (0.0-0.04); IMM GRAN% 0.4 % (0.0-0.5); LYMPH# 0.38 X1000 (1.2-3.4); LYMPH% 3.9 % (20.5-51.1); MCH 27.8 PG (27-31); MCHC 31.5 g/dL (33-37); MCV 88.1 FL (81-99); MONO# 0.31 X1000 (0.11-0.59); MONO% 3.2 % (1.7-9.3); MPV 10.4 FL (7.4-10.4); NEUT# 9.03 X1000 (1.4-6.5); NEUT% 92.5 % (42.2-75.2); PLT 76 X1000 (130-400); RBC 2.95 XMIL (4.7-6.1); RDW 16.1 % (11.5-14.5); WBC 9.76 X1000 (4.8-10.8)
[2019-09-28 06:54] LABS: CALCIUM 8.8 mg/dL (8.8-10.2); CREATININE 1.6 mg/dL (0.7-1.2); POTASSIUM 4.6 mmol/L (3.5-5.1)
--- NOTE | 2019-09-28 07:14 | Diag Imaging Result Doc PS360 ---
EXAM: CHEST-PORTABLE 09/28/2019 HISTORY: dyspnea TECHNIQUE: AP portable at 0552 COMMENT: There is cardiomegaly. There is alveolar opacity bilaterally. This has not changed appreciably since 09/27/2019. IMPRESSION: Pulmonary edema and cardiomegaly. Electronically signed by Rishabh Kan 09/28/2019 7:12 AM
[2019-09-28 07:16] LABS: LYMPHS 4 % (21-51); MONO 2 % (1-9); SEGS 94 % (42-75)
[2019-09-28] MEDS: TESSALON PO SCH ×3 (08:22→18:12)
[2019-09-28] MEDS: LOMOTIL PO PRN ×2 (08:22→20:12)
[2019-09-28] MEDS: COREG PO SCH ×2 (08:23→20:12)
[2019-09-28] MEDS: MIRALAX PO SCH (08:23)
[2019-09-28] MEDS: NORVASC PO SCH (08:23)
[2019-09-28] MEDS: COZAAR PO SCH (08:23)
[2019-09-28] MEDS: CALTRATE 600 + D PO SCH (08:23)
[2019-09-28] MEDS: ASPIRIN PO SCH (08:23)
[2019-09-28] MEDS: AMBIEN PO PRN (23:04)
--- NOTE | 2019-09-28 23:39 | PULMONOLOGY PROGRESS NOTE ---
DATE: 09/28/2019 SUBJECTIVE: The patient is awake and alert. He reports his breathing has marginally improved. He was placed on a high-flow oxygen and remains on 50 to 60 percent. He is not short of breath at rest. He denies hemoptysis. OBJECTIVE: Vital Signs: The patient has been afebrile for the last 24 hours. Blood pressure 138/100, heart rate 92, respiratory rate 20, oxygen saturation 88 to 92 percent. HEENT: Pupils are equal and reactive. Oropharynx is clear. Neck: Supple. Chest: Reveals faint crackles bilaterally. Cardiac: S1, S2. Abdomen: Soft. Extremities: Without edema. LABORATORIES: Chest x-ray reveals cardiomegaly and bilateral infiltrates, which are unchanged. White blood count 9.76, hemoglobin 8.2, platelet count 76,000. IMPRESSION: 1. A 54-year-old with bleomycin exposure. 2. Fluctuating infiltrates. 3. Coronary artery disease with mild mitral regurgitation. 4. Hypoxemic respiratory failure. PLAN: 1. Continue to hold diuretics. 2. I have discussed the case with Dr. Argueta. He will check with Interventional Cardiology to see if there is a way to mitigate his coronary artery disease. 3. Continue to minimize oxygen, but he is requiring a significant amount of FiO2. 4. Continue current steroid dosing. cc: Juventino Santos MD
[2019-09-29] MEDS: DUONEB (A & A) INH SCH ×6 (03:25→23:21)
[2019-09-29 04:40] LABS: ALLEN TEST YES; BE 4.9 mmoll (-3.0-3.0); BLOOD TYPE ARTERIAL; HCO3-(ACT) 28.6 mmoll (20.0-26.0); METHB 0.9 % (0.0-1.5); O2(CT) 10.9 mL/dL (15.0-23.0); PCO2(98.6) 41 mmHg (35-45); PO2(98.6) 52 mmHg (60-100); SAMPLE BLOOD; SAO2 90.3 % (95.0-100.0); THB 8.9 g/dL (11.5-17.4); pH(98.6) 7.46 (7.35-7.45)
[2019-09-29 04:41] LABS: MODALITY HIGH FLOW NASAL CAN; O2HB 86.7 % (95.0-99.0)
--- NOTE | 2019-09-29 05:54 | PROGRESS NOTE ---
DATE: 09/28/2019 SUBJECTIVE: The patient is sitting up in bed, resting. He is currently on high-flow oxygen. He has no complaints at this time. OBJECTIVE: Vital Signs: Temperature 97 degrees, blood pressure 141/86, heart rate 89, respirations 22, O2 saturation is 92% on high-flow oxygen. Intake 2.3 L, output 2.4 L. General: This is a morbidly obese male, lying in bed in no acute distress. Heart: S1, S2 normal. Regular rate and rhythm. Lungs: Diminished breath sounds at the bases. Positive for crackles. Extremities: Trace pedal edema. Neurologic: The patient is alert and oriented x4. DIAGNOSTIC STUDIES: Sodium 140, potassium 4.6, chloride 96, CO2 of 29, BUN 84, creatinine 1.6, glucose 169. White blood cell count 9.7, hemoglobin 8.2, hematocrit 26, platelets 76,000. ABG: PH of 7.49, pCO2 of 41, PO2 of 59, bicarbonate 30. Chest x-ray shows pulmonary edema and cardiomegaly. ASSESSMENT AND PLAN: 1. Acute hypoxemic respiratory failure. Multifactorial. Continue with the current management as directed by Dr. Santos. 2. Pulmonary edema. The patient's diuretic therapy is on hold due to renal insufficiency. We will place the patient on fluid restriction. 3. Pulmonary hypertension. Aware. 4. Testicular cancer status post chemotherapy. Aware. 5. History of bleomycin exposure. Aware. 6. Hypertension. Continue on the current antihypertensive regimen. 7. Thrombocytopenia. The patient's platelet count is trending downward. The patient has not been exposed to heparin or Lovenox. We will defer to Hematology. cc: Capri Bronson MD [facility]
[2019-09-29] MEDS: LOMOTIL PO PRN ×3 (06:21→21:05)
[2019-09-29] MEDS: SOLU-MEDROL IV SCH ×3 (06:21→17:54)
[2019-09-29 06:38] LABS: EOS# 0.03 X1000 (0.0-0.7); EOS% 0.2 % (0.0-10.0); HEMATOCRIT 27.5 % (42.0-52.0); HEMOGLOBIN 8.5 g/dL (14.0-18.0); IMM GRAN# 0.11 X1000 (0.0-0.04); IMM GRAN% 0.8 % (0.0-0.5); LYMPH# 0.49 X1000 (1.2-3.4); LYMPH% 3.7 % (20.5-51.1); MCH 27.8 PG (27-31); MCHC 30.9 g/dL (33-37); MCV 89.9 FL (81-99); MPV 10.8 FL (7.4-10.4); NEUT# 12.15 X1000 (1.4-6.5); NEUT% 92.3 % (42.2-75.2); PLT 78 X1000 (130-400); RBC 3.06 XMIL (4.7-6.1); RDW 15.9 % (11.5-14.5); WBC 13.18 X1000 (4.8-10.8)
[2019-09-29 06:59] LABS: ESTIMATED GFR > 60
[2019-09-29 07:04] LABS: AGAP 16; BUN 60 mg/dL (8-22); CALCIUM 8.9 mg/dL (8.8-10.2); CHLORIDE 96 mmol/L (98-107); COSMO 298; CREATININE 1.1 mg/dL (0.7-1.2); GLUCOSE 190 mg/dL (70-104); SODIUM 138 mmol/L (136-145); TCO2 26 mmol/L (25-35)
[2019-09-29 07:43] LABS: BANDS 2 % (0-1); LYMPHS 2 % (21-51); MONO 4 % (1-9); SEGS 92 % (42-75)
--- NOTE | 2019-09-29 07:53 | Diag Imaging Result Doc PS360 ---
CHEST-PORTABLE - 09/29/2019 INDICATION: dyspnea COMPARISON: 09/28/2019 FINDINGS: Stable low lung volumes. Stable dense bilateral diffuse infiltrates, slightly worse in the bases. Stable borderline cardiomegaly. IMPRESSION: No change from prior. Electronically signed by Socrates Bergman 09/29/2019 7:51 AM
[2019-09-29] MEDS: COREG PO SCH ×2 (08:16→21:05)
[2019-09-29] MEDS: CALTRATE 600 + D PO SCH (08:16)
[2019-09-29] MEDS: TESSALON PO SCH ×3 (08:16→17:54)
[2019-09-29] MEDS: ASPIRIN PO SCH (08:16)
[2019-09-29] MEDS: NORVASC PO SCH (08:17)
[2019-09-29] MEDS: MIRALAX PO SCH (08:24)
--- NOTE | 2019-09-29 20:28 | PROGRESS NOTE ---
DATE: 09/29/2019 SUBJECTIVE: The patient is sitting up in bed. He is still on high-flow oxygen. He has no complaints. OBJECTIVE: Vital signs: Temperature 97.1 degrees, blood pressure 131/77, heart rate 92, respirations 16, O2 saturation 90% on high-flow oxygen. Intake 3 L, output 2.1 L.General: This is an overweight male, sitting up in bed in no acute distress. Heart: S1, S2 normal. Regular rate and rhythm. Lungs: Diminished breath sounds bilaterally. Mild expiratory crackles. Abdomen: Positive bowel sounds. Soft, nontender, nondistended. Extremities: No edema, no cyanosis. Neurologic: The patient is alert and oriented x4. LABORATORY DATA: White blood cell count 13, hemoglobin 8.5, hematocrit 27, platelets 78,000. Sodium 138, potassium 5, chloride 96, CO2 is 26, BUN 60, creatinine 1.1, glucose 190. DIAGNOSTIC DATA: Chest x-ray: Dense bilateral diffuse infiltrates. ASSESSMENT AND PLAN: 1. Acute hypoxemic respiratory failure. Multifactorial. Continue with the current treatment regimen. 2. Dense bilateral infiltrates. The patient was seen by Dr. Mosley earlier in the hospitalization and it was felt that this did not represent pneumonia. Procalcitonin is currently pending. The patient's white blood cell count is slightly elevated today. We will continue to monitor closely. 3. Pulmonary hypertension. Aware. 4. History of bleomycin exposure. Aware. 5. Testicular cancer, status post chemotherapy. Aware. 6. Thrombocytopenia. Stable. No active bleeding noted at this time. 7. Hypertension. Controlled. cc: Capri Bronson [facility]
[2019-09-30] MEDS: SOLU-MEDROL IV SCH ×5 (00:23→23:05)
[2019-09-30] MEDS: AMBIEN PO PRN (00:23)
[2019-09-30] MEDS: DUONEB (A & A) INH SCH ×5 (03:51→22:32)
[2019-09-30] MEDS: LOMOTIL PO PRN ×2 (05:20→20:42)
[2019-09-30 05:30] LABS: ALLEN TEST YES; BE 3.6 mmoll (-3.0-3.0); BLOOD TYPE ARTERIAL; HCO3-(ACT) 27.7 mmoll (20.0-26.0); METHB 1.2 % (0.0-1.5); O2(CT) 11.5 mL/dL (15.0-23.0); PCO2(98.6) 39 mmHg (35-45); PO2(98.6) 76 mmHg (60-100); SAMPLE BLOOD; SAO2 98.1 % (95.0-100.0); THB 8.6 g/dL (11.5-17.4); pH(98.6) 7.46 (7.35-7.45)
[2019-09-30 05:35] LABS: MODALITY HIGH FLOW NASAL CAN
[2019-09-30 06:04] LABS: BASO# 0.02 X1000 (0.0-0.2); BASO% 0.1 % (0.0-0.8); HEMATOCRIT 26.4 % (42.0-52.0); HEMOGLOBIN 8.1 g/dL (14.0-18.0); IMM GRAN# 0.14 X1000 (0.0-0.04); LYMPH# 0.74 X1000 (1.2-3.4); LYMPH% 5.4 % (20.5-51.1); MCH 27.8 PG (27-31); MCHC 30.7 g/dL (33-37); MCV 90.7 FL (81-99); MONO# 0.32 X1000 (0.11-0.59); MONO% 2.4 % (1.7-9.3); MPV 11.1 FL (7.4-10.4); NEUT# 12.37 X1000 (1.4-6.5); NEUT% 91.1 % (42.2-75.2); PLT 73 X1000 (130-400); RBC 2.91 XMIL (4.7-6.1); RDW 15.9 % (11.5-14.5); WBC 13.59 X1000 (4.8-10.8)
[2019-09-30 06:05] LABS: ESTIMATED GFR > 60
[2019-09-30 06:07] LABS: AGAP 16; BUN 52 mg/dL (8-22); CALCIUM 8.9 mg/dL (8.8-10.2); CHLORIDE 99 mmol/L (98-107); COSMO 298; CREATININE 1.2 mg/dL (0.7-1.2); GLUCOSE 183 mg/dL (70-104); SODIUM 140 mmol/L (136-145); TCO2 25 mmol/L (25-35)
--- NOTE | 2019-09-30 07:29 | PULMONOLOGY PROGRESS NOTE ---
DATE: 09/29/2019 SUBJECTIVE: The patient is awake, alert, and conversant. He reports he has had a pretty good day. He has had some shortness of breath, but no significant sputum production. OBJECTIVE: Vital Signs: The patient has been afebrile for the last 24 hours. Blood pressure 141/80, heart rate 81, oxygen saturation 96% on 60% FiO2. HEENT: Pupils are equal and reactive. Oropharynx appears clear. Neck: Supple. Chest: Reveals crackles in both lung bases. Cardiac: S1, S2. Abdomen: Soft. Extremities: Without edema. IMAGING: Chest x-ray reveals bilateral infiltrates without significant change. LABORATORY DATA: Sodium 138, potassium 5.0, chloride 96, bicarbonate 26, BUN 60, creatinine 1.0. White blood count 13.18, hemoglobin 8.5, platelet count 78,000. IMPRESSION: A 54-year-old with: 1. Acute hypoxemic respiratory failure. 2. Fluctuating pulmonary infiltrates. Infiltrates are worse when he is fluid overloaded and improved with diuresis. 3. Coronary artery disease with mitral regurgitation. 4. Bleomycin exposure. DISCUSSION: An unfortunate 54-year-old male with problems outlined above. I am suspicious that he is having periods of ischemia followed by flash pulmonary edema with alveolar bleeding. His course of improvement and regression would not be typical for bleomycin, but clearly bleomycin may play a role in his lung injury. Unfortunately, Dr. Argueta has reviewed his case with the interventionalist at [facility] and patient is not a candidate for any intervention to improve coronary blood flow. PLAN: 1. Continue oxygen and wean as tolerated. 2. Hold diuretics until BUN is decreasing. 3. Continue current steroid dosing. 4. His prognosis appears to be very poor. cc: Juventino Santos MD
--- NOTE | 2019-09-30 07:42 | Diag Imaging Result Doc PS360 ---
EXAM: CHEST-PORTABLE INDICATION: dyspnea TECHNIQUE: One view COMPARISON: 09/29/2019 FINDINGS: Dense bilateral airspace consolidations with a basilar predominance are grossly unchanged. No new consolidation is identified. Cardiac silhouette is stable. IMPRESSION: Stable chest. Electronically signed by Terry Jackson 09/30/2019 7:39 AM
[2019-09-30] MEDS: CALTRATE 600 + D PO SCH ×2 (07:55→08:58)
[2019-09-30] MEDS: COREG PO SCH ×3 (07:55→20:42)
[2019-09-30] MEDS: ASPIRIN PO SCH ×2 (07:55→08:58)
[2019-09-30] MEDS: NORVASC PO SCH ×2 (07:56→08:58)
[2019-09-30] MEDS: TESSALON PO SCH ×4 (07:56→17:44)
[2019-09-30] MEDS: MIRALAX PO SCH (08:58)
[2019-09-30] MEDS: MAXIPIME 1 GM in NS 50 ML IV SCH ×2 (11:30→23:05)
[2019-09-30] MEDS ORDERED: LASIX IV ONE (20:49)
[2019-10-01] MEDS: DUONEB (A & A) INH SCH ×6 (03:03→23:05)
--- NOTE | 2019-10-01 03:47 | PROGRESS NOTE ---
DATE: 09/30/2019 SUBJECTIVE: The patient is sitting up at the edge of the bed. He has no complaints at this time. He is having regular bowel movements. OBJECTIVE: Vital Signs: Temperature 97 degrees, blood pressure 136/87, heart rate 93, respirations 18, O2 saturation 96% on high-flow oxygen. Intake 2.2 L. Output 1.8 L. General: This is an elderly male, sitting in bed in no acute distress. Heart: S1, S2 normal. Regular rate and rhythm. Lungs: Equal air entry bilaterally. No wheezing. No rales. Abdomen: Positive bowel sounds. Soft, nontender, nondistended. Extremities: No edema. No cyanosis. No calf tenderness. Neurologic: The patient is alert and oriented x3. LABS: White blood cell count 13, hemoglobin 8.1, hematocrit 26, platelets 73,000. Sodium 140, potassium 5, chloride 99, CO2 25, BUN 52, creatinine 1.2, glucose 183. Chest x-ray shows bilateral airspace consolidations. ASSESSMENT AND PLAN: 1. Acute hypoxemic respiratory failure. Continue with the current treatment regimen. 2. Bilateral infiltrates. The patient's white blood cell count is slightly increased today. We will start a trial of antibiotic therapy and monitor the patient's response. 3. Pulmonary hypertension. Aware. 4. Testicular cancer, status post chemotherapy. Aware. 5. History of bleomycin exposure. Aware. 6. Thrombocytopenia. Stable. 7. Hypertension. Controlled. 8. Will transfer the patient to [facility]. cc: [facility]
--- NOTE | 2019-10-01 04:59 | PULMONOLOGY PROGRESS NOTE ---
DATE: 09/30/2019 SUBJECTIVE: The patient is awake and alert. He reports he has had a pretty good day. He has been afebrile today. OBJECTIVE: Vital Signs: Blood pressure 159/93, heart rate 92, respiratory rate 25, and oxygen saturation 93% on high-flow oxygen. HEENT: Pupils are equal and reactive. Oropharynx appears clear. Neck: Supple. Lungs: Chest reveals bilateral crackles. Cardiac: S1-S2. Abdomen: Obese and soft. Extremities: Reveal trace to 1+ peripheral edema. LABORATORY DATA: Sodium 140, potassium 5.0, chloride 99, bicarbonate 25, BUN 52, creatinine 1.2, and glucose 183. White blood count 13.59, hemoglobin 8.1, and platelet count 73,000. IMPRESSION: A 54-year-old with: 1. Acute hypoxemic respiratory failure. 2. Fluctuating pulmonary infiltrates. 3. Intermittent hemoptysis. 4. Coronary artery disease with mitral regurgitation. 5. Bleomycin exposure. PLAN: 1. Continue oxygen and wean as tolerated. 2. Small dose of Lasix today. 3. Continue steroid dosing. 4. Prognosis appears to be guarded. He has fairly significant coronary artery disease, and I suspect he is having periods of flash pulmonary edema. cc: Juventino Santos MD
[2019-10-01] MEDS: SOLU-MEDROL IV SCH ×3 (05:16→18:28)
[2019-10-01 05:23] LABS: ALLEN TEST YES; BE 3.3 mmoll (-3.0-3.0); BLOOD TYPE ARTERIAL; HCO3-(ACT) 27.5 mmoll (20.0-26.0); METHB 0.6 % (0.0-1.5); O2(CT) 11.6 mL/dL (15.0-23.0); O2HB 94.7 % (95.0-99.0); PCO2(98.6) 42 mmHg (35-45); PO2(98.6) 78 mmHg (60-100); SAMPLE BLOOD; SAO2 97.8 % (95.0-100.0); THB 8.6 g/dL (11.5-17.4); pH(98.6) 7.43 (7.35-7.45)
[2019-10-01 05:28] LABS: MODALITY HIGH FLOW NASAL CAN
[2019-10-01 06:07] LABS: BASO# 0.04 X1000 (0.0-0.2); BASO% 0.2 % (0.0-0.8); EOS# 0.03 X1000 (0.0-0.7); EOS% 0.2 % (0.0-10.0); HEMATOCRIT 26.4 % (42.0-52.0); HEMOGLOBIN 8.1 g/dL (14.0-18.0); IMM GRAN# 0.53 X1000 (0.0-0.04); IMM GRAN% 2.7 % (0.0-0.5); LYMPH# 1.34 X1000 (1.2-3.4); LYMPH% 6.8 % (20.5-51.1); MCHC 30.7 g/dL (33-37); MCV 91.3 FL (81-99); MONO% 3.6 % (1.7-9.3); MPV 11.7 FL (7.4-10.4); NEUT# 17.02 X1000 (1.4-6.5); NEUT% 86.5 % (42.2-75.2); PLT 80 X1000 (130-400); RBC 2.89 XMIL (4.7-6.1); RDW 16.2 % (11.5-14.5); WBC 19.66 X1000 (4.8-10.8)
[2019-10-01 06:12] LABS: ESTIMATED GFR > 60
[2019-10-01 06:17] LABS: AGAP 15; BUN 53 mg/dL (8-22); CHLORIDE 99 mmol/L (98-107); COSMO 299; CREATININE 1.1 mg/dL (0.7-1.2); GLUCOSE 194 mg/dL (70-104); POTASSIUM 4.3 mmol/L (3.5-5.1); SODIUM 140 mmol/L (136-145); TCO2 26 mmol/L (25-35)
--- NOTE | 2019-10-01 07:46 | Diag Imaging Result Doc PS360 ---
EXAM: CHEST-PORTABLE INDICATION: dyspnea TECHNIQUE: One view COMPARISON: 09/30/2019 FINDINGS: Dense lower lung zone airspace consolidations are unchanged. No new consolidation is identified. Cardiac silhouette is stable. IMPRESSION: Stable chest. Electronically signed by Terry Jackson 10/01/2019 7:44 AM
[2019-10-01] MEDS: TESSALON PO SCH ×3 (09:12→20:50)
[2019-10-01] MEDS: ASPIRIN PO SCH (09:12)
[2019-10-01] MEDS: CALTRATE 600 + D PO SCH (09:12)
[2019-10-01] MEDS: NORVASC PO SCH (09:12)
[2019-10-01] MEDS: COREG PO SCH ×2 (09:12→20:51)
[2019-10-01] MEDS: MIRALAX PO SCH (09:13)
[2019-10-01] MEDS: LOMOTIL PO PRN ×2 (09:15→17:38)
[2019-10-01] MEDS ORDERED: LEVAQUIN PO ONE (13:09)
[2019-10-01] MEDS: ZYVOX PO SCH (14:05)
--- NOTE | 2019-10-01 14:54 | PROGRESS NOTE ---
DATE: 10/01/2019 SUBJECTIVE: The patient is sitting in a chair. He remains on high-flow oxygen. OBJECTIVE: Vital Signs: Temperature 97.9 degrees, blood pressure 163/99, heart rate 94, respirations 18, and O2 saturation is 98% on high-flow oxygen. Intake is 1.2 liters and output 3.4 liters. General: This is an elderly male sitting in a chair in no acute distress. Heart: S1 and S2, normal. Regular rate and rhythm. Lungs: Equal air entry bilaterally. No wheezing. No rales. Abdomen: Positive bowel sounds. Soft, nontender, nondistended. Extremities: No edema, no cyanosis. Neurologic: The patient is alert and oriented x4. LABORATORIES: White blood cell count 19, hemoglobin 8.1, hematocrit 26, platelets 80,000. Sodium 140, potassium 4.3, chloride 99, CO2 of 26, BUN 53, creatinine 1.1, glucose 194. RADIOGRAPHS: Chest x-ray shows dense airspace consolidations that are unchanged. ASSESSMENT AND PLAN: 1. Acute hypoxemic respiratory failure. The patient remains on high-flow oxygen. We will continue to attempt to wean the patient off of this. 2. Severe pneumonitis. Unchanged. Continue to monitor for improvement. 3. Leukocytosis. The patient's white blood cell count has increased again today. We will start empiric antibiotic therapy and monitor closely. The patient is also on steroids. 4. Pulmonary hypertension. Aware. 5. Testicular cancer status post chemotherapy. Aware. 6. History of bleomycin exposure. Aware. 7. Thrombocytopenia. Stable. 8. Hypertension. Continue on the current antihypertensive regimen. cc: MD YFN López
[2019-10-02] MEDS: LOMOTIL PO PRN (00:48)
[2019-10-02] MEDS: SOLU-MEDROL IV SCH ×4 (00:48→17:12)
[2019-10-02] MEDS: DUONEB (A & A) INH SCH ×6 (03:00→22:42)
[2019-10-02] MEDS: ZYVOX PO SCH (05:10)
[2019-10-02 07:30] LABS: BASO# 0.05 X1000 (0.0-0.2); BASO% 0.2 % (0.0-0.8); EOS# 0.01 X1000 (0.0-0.7); HEMATOCRIT 26.3 % (42.0-52.0); IMM GRAN# 0.84 X1000 (0.0-0.04); IMM GRAN% 4.1 % (0.0-0.5); LYMPH# 1.55 X1000 (1.2-3.4); LYMPH% 7.6 % (20.5-51.1); MCH 28.1 PG (27-31); MCHC 30.4 g/dL (33-37); MCV 92.3 FL (81-99); MONO# 0.66 X1000 (0.11-0.59); MONO% 3.3 % (1.7-9.3); MPV 11.2 FL (7.4-10.4); NEUT# 17.19 X1000 (1.4-6.5); NEUT% 84.8 % (42.2-75.2); PLT 77 X1000 (130-400); RBC 2.85 XMIL (4.7-6.1); RDW 17.2 % (11.5-14.5)
--- NOTE | 2019-10-02 07:38 | Diag Imaging Result Doc PS360 ---
CHEST-PORTABLE - 10/02/2019 INDICATION: dyspnea COMPARISON: 10/01/2019 FINDINGS: Stable cardiomegaly. Stable significant interstitial infiltrates in the lung bases bilaterally most suggestive of pulmonary edema. No large pleural effusion. IMPRESSION: No change in the cardiomegaly and interstitial pulmonary edema. Electronically signed by Socrates Bergman 10/02/2019 7:36 AM
[2019-10-02] MEDS ORDERED: VANCOMYCIN IV PER PHARMACY MISC SCH (07:45)
[2019-10-02 07:47] LABS: AGAP 13; BUN 46 mg/dL (8-22); CALCIUM 8.9 mg/dL (8.8-10.2); CHLORIDE 97 mmol/L (98-107); COSMO 286; CREATININE 1.1 mg/dL (0.7-1.2); ESTIMATED GFR > 60; GLUCOSE 139 mg/dL (70-104); POTASSIUM 4.8 mmol/L (3.5-5.1); SODIUM 136 mmol/L (136-145); TCO2 26 mmol/L (25-35)
[2019-10-02 07:52] LABS: BANDS 1 % (0-1); LYMPHS 3 % (21-51); MONO 2 % (1-9); SEGS 94 % (42-75)
[2019-10-02 07:53] LABS: TARGET CELLS OCCASIONAL
[2019-10-02 08:15] LABS: HEMOGLOBIN A1C 5.1 % (4.8-6.0)
[2019-10-02] MEDS: CALTRATE 600 + D PO SCH (08:34)
[2019-10-02] MEDS: MIRALAX PO SCH ×2 (08:34→08:36)
[2019-10-02] MEDS: COREG PO SCH ×2 (08:34→20:27)
[2019-10-02] MEDS: TESSALON PO SCH ×3 (08:34→17:12)
[2019-10-02] MEDS: NORVASC PO SCH (08:34)
[2019-10-02] MEDS: ASPIRIN PO SCH (08:34)
[2019-10-02] MEDS ORDERED: LEVAQUIN PO SCH (09:00)
[2019-10-02] MEDS: AZACTAM 1 GM in NS 50 ML IV SCH ×2 (10:30→17:12)
--- NOTE | 2019-10-02 10:41 | Diag Imaging Result Doc PS360 ---
CT THORAX W/O CONTRAST - 10/02/2019 INDICATION: Respiratory failure/pneumonia COMPARISON: 08/26/2019 FINDINGS: There is no adenopathy. Heart size is top normal. There is extensive bilateral infiltrates. Compared to the prior CT, this appears less alveolar and more interstitial. This is also slightly more extensive. There is some varicoid bronchiectasis in the lung bases that has worsened since prior. No pneumothorax or pleural effusion. IMPRESSION: Evolution of the bilateral diffuse infiltrates. Given the findings of varicoid bronchiectasis in the lung bases, this likely represents late (fibrotic) phase of acute interstitial pneumonia. This exam was performed using automated exposure control, adjustment of mA or kV according to patient size, and/or use of iterative reconstruction technique Electronically signed by Socrates Bergman 10/02/2019 10:38 AM
[2019-10-02] MEDS: VANCOMYCIN 2,000 MG in NS 500 ML IV SCH (11:01)
[2019-10-02] MEDS: HUMULIN R SUBQ SCH ×3 (11:02→21:40)
[2019-10-02] MEDS ORDERED: LASIX IV ONE (16:22)
--- NOTE | 2019-10-02 17:32 | PROGRESS NOTE ---
DATE: 10/02/2019 SUBJECTIVE: The patient is sitting in a chair. He has no complaints at this time. OBJECTIVE: Vital Signs: Temperature 97.5 degrees, blood pressure 135/85, heart rate 91, respirations 18, O2 saturation 93% on high-flow oxygen, intake 1.4 L, output 7.6 L. General: This is a overweight male sitting in a chair in no acute distress. Heart: S1, S2 normal tachycardic. Lungs: Equal air entry bilaterally. No wheezing, no rales. Abdomen: Positive bowel sounds. Soft, nontender, nondistended. Extremities: No edema, no cyanosis. Neuro: The patient is alert and oriented x4. LABS: White blood cell count 20, hemoglobin 8, hematocrit 26, platelets 77,000. Sodium 136, potassium 4.8, chloride 97, CO2 26, BUN 46, creatinine 1.1, glucose 139. Chest CT shows acute interstitial pneumonia with bronchiectasis in the lung bases. ASSESSMENT AND PLAN: 1. Acute hypoxemic respiratory failure. The chest CT done today shows acute interstitial pneumonia with bronchiectasis. We will continue on high-flow oxygen. 2. Interstitial pneumonia. We will start the patient on antibiotic therapy. We will also consult with ID. 3. Leukocytosis. Worse today. The patient has been started on broad-spectrum antibiotics. Will also discuss with ID. 4. Pulmonary hypertension. Aware. 5. Testicular cancer status post chemotherapy. Aware. 6. History of bleomycin exposure. Aware. 7. Thrombocytopenia. Stable. 8. Hypertension. Controlled. cc: Capri Bronson MD [facility]
[2019-10-03] MEDS: LOMOTIL PO PRN ×3 (01:11→23:34)
[2019-10-03] MEDS: SOLU-MEDROL IV SCH ×5 (01:11→23:34)
[2019-10-03] MEDS: AZACTAM 1 GM in NS 50 ML IV SCH ×3 (01:12→17:34)
[2019-10-03] MEDS: DUONEB (A & A) INH SCH ×6 (02:50→22:47)
[2019-10-03] MEDS: VANCOMYCIN 2,000 MG in NS 500 ML IV SCH (05:04)
[2019-10-03] MEDS: HUMULIN R SUBQ SCH ×4 (06:08→21:50)
[2019-10-03 06:26] LABS: ESTIMATED GFR > 60
[2019-10-03 06:36] LABS: BASO# 0.02 X1000 (0.0-0.2); BASO% 0.1 % (0.0-0.8); HEMATOCRIT 27.3 % (42.0-52.0); HEMOGLOBIN 8.5 g/dL (14.0-18.0); IMM GRAN# 0.29 X1000 (0.0-0.04); IMM GRAN% 1.8 % (0.0-0.5); LYMPH# 0.87 X1000 (1.2-3.4); LYMPH% 5.5 % (20.5-51.1); MCH 28.9 PG (27-31); MCHC 31.1 g/dL (33-37); MCV 92.9 FL (81-99); MONO# 0.51 X1000 (0.11-0.59); MONO% 3.2 % (1.7-9.3); NEUT# 14.13 X1000 (1.4-6.5); NEUT% 89.4 % (42.2-75.2); PLT 80 X1000 (130-400); RBC 2.94 XMIL (4.7-6.1); RDW 19.2 % (11.5-14.5); WBC 15.82 X1000 (4.8-10.8)
[2019-10-03 06:53] LABS: AGAP 15; BUN 59 mg/dL (8-22); CALCIUM 8.8 mg/dL (8.8-10.2); CHLORIDE 99 mmol/L (98-107); COSMO 300; CREATININE 1.2 mg/dL (0.7-1.2); GLUCOSE 171 mg/dL (70-104); POTASSIUM 4.6 mmol/L (3.5-5.1); SODIUM 140 mmol/L (136-145); TCO2 26 mmol/L (25-35)
[2019-10-03] MEDS: ASPIRIN PO SCH (08:04)
[2019-10-03] MEDS: NORVASC PO SCH (08:04)
[2019-10-03] MEDS: TESSALON PO SCH ×3 (08:04→17:33)
[2019-10-03] MEDS: CALTRATE 600 + D PO SCH (08:04)
[2019-10-03] MEDS: COREG PO SCH ×2 (08:04→20:37)
[2019-10-03] MEDS: MIRALAX PO SCH (08:05)
[2019-10-03 11:48] LABS: URINE SOURCE CLEAN CATCH
[2019-10-03 12:00] LABS: BILIRUBIN URINE NEGATIVE (NEGATIVE); BLOOD URINE NEGATIVE (NEGATIVE); COLOR YELLOW; GLUCOSE URINE 100 mg/dL (NEGATIVE); KETONE URINE NEGATIVE (NEGATIVE); LEUKOCYTES URINE NEGATIVE (NEGATIVE); NITRITE URINE NEGATIVE (NEGATIVE); PH URINE 5.5; PROTEIN URINE NEGATIVE (NEGATIVE); SP GRAVITY URINE 1.023; TURBIDITY URINE CLEAR (CLEAR); UROBILINOGEN URINE NORMAL (NORMAL)
[2019-10-03 12:02] LABS: UR EPITHELIAL CELLS <10 /HPF (<10); URINE BACTERIA NEGATIVE /HPF; URINE RBC <10 /HPF (<10); URINE WBC <10 /HPF (<10)
--- NOTE | 2019-10-03 18:56 | PROGRESS NOTE ---
DATE: 10/03/2019 SUBJECTIVE: The patient is resting comfortably. He is sitting up in a chair. He has no complaints. OBJECTIVE: Vital Signs: Temperature 97.5 degrees, blood pressure 145/83, heart rate 96, respirations 18, O2 saturation 93% on high-flow oxygen. Intake 900. Output 1.6 L. General: This is a overweight male sitting in a chair in no acute distress. Heart: S1, S2 normal. Regular rate and rhythm. Lungs: Equal air entry bilaterally. No wheezing. No rales. No rhonchi. Abdomen: Positive bowel sounds. Soft, nontender, nondistended. Extremities: 1+ edema bilaterally in the lower extremities. Neurologic: The patient is alert and oriented x4. LABS: White blood cell count 15, hemoglobin 8.5, hematocrit 27, platelets 80,000. Sodium 140, potassium 4.6, BUN 59, creatinine 1.2, glucose 171. ASSESSMENT AND PLAN: 1. Acute hypoxemic respiratory failure. Continue with the current treatment regimen. 2. Acute interstitial pneumonia with bronchiectasis. Continue with antibiotic therapy and high- dose steroids. Further management as per the shuttle spotter. 3. Leukocytosis. Improved. 4. Steroid-induced hyperglycemia. Continue with sliding scale insulin. 5. Pulmonary hypertension. Aware. 6. Testicular cancer status post chemotherapy. Aware. 7. History of bleomycin exposure. Aware. 8. Thrombocytopenia. Stable. 9. Hypertension. Controlled. cc: Capri Bronson MD
[2019-10-03] MEDS: ZYVOX PO SCH (20:37)
[2019-10-04] MEDS: AZACTAM 1 GM in NS 50 ML IV SCH ×3 (01:11→16:37)
[2019-10-04] MEDS: DUONEB (A & A) INH SCH ×7 (03:21→23:39)
[2019-10-04] MEDS: SOLU-MEDROL IV SCH ×3 (05:26→20:07)
[2019-10-04] MEDS: HUMULIN R SUBQ SCH (06:02)
[2019-10-04 06:11] LABS: BASO# 0.01 X1000 (0.0-0.2); BASO% 0.1 % (0.0-0.8); HEMATOCRIT 26.7 % (42.0-52.0); HEMOGLOBIN 8.1 g/dL (14.0-18.0); IMM GRAN% 0.9 % (0.0-0.5); LYMPH# 0.46 X1000 (1.2-3.4); LYMPH% 3.9 % (20.5-51.1); MCH 28.9 PG (27-31); MCHC 30.3 g/dL (33-37); MCV 95.4 FL (81-99); MONO# 0.28 X1000 (0.11-0.59); MONO% 2.4 % (1.7-9.3); MPV 10.7 FL (7.4-10.4); NEUT# 10.88 X1000 (1.4-6.5); NEUT% 92.7 % (42.2-75.2); PLT 65 X1000 (130-400); RDW 20.7 % (11.5-14.5); WBC 11.73 X1000 (4.8-10.8)
[2019-10-04 06:15] LABS: AGAP 13; BUN 47 mg/dL (8-22); CALCIUM 8.7 mg/dL (8.8-10.2); CHLORIDE 103 mmol/L (98-107); COSMO 298; CREATININE 1.1 mg/dL (0.7-1.2); ESTIMATED GFR > 60; GLUCOSE 153 mg/dL (70-104); POTASSIUM 4.7 mmol/L (3.5-5.1); SODIUM 142 mmol/L (136-145); TCO2 26 mmol/L (25-35)
--- NOTE | 2019-10-04 07:09 | Diag Imaging Result Doc PS360 ---
EXAM: CHEST-1 VIEW 10/04/2019 HISTORY: interstital pneumonia TECHNIQUE: AP portable upright at 0529 COMMENT: There is interstitial and alveolar opacity in both lung bases consistent with pulmonary edema. There is cardiomegaly. Compared to 10/02/2019 there has been minimal improvement. IMPRESSION: Improved pulmonary edema. Electronically signed by Rishabh Kan 10/04/2019 7:07 AM
[2019-10-04] MEDS: TESSALON PO SCH ×3 (08:16→16:37)
[2019-10-04] MEDS: COREG PO SCH ×2 (08:16→20:07)
[2019-10-04] MEDS: ASPIRIN PO SCH (08:16)
[2019-10-04] MEDS: CALTRATE 600 + D PO SCH (08:16)
[2019-10-04] MEDS: NORVASC PO SCH (08:16)
[2019-10-04] MEDS: ZYVOX PO SCH ×2 (08:16→20:07)
[2019-10-04] MEDS: MIRALAX PO SCH (08:17)
[2019-10-04 10:14] LABS: ALLEN TEST YES; BE 0.9 mmoll (-3.0-3.0); BLOOD TYPE ARTERIAL; HCO3-(ACT) 25.5 mmoll (20.0-26.0); METHB 0.4 % (0.0-1.5); O2(CT) 10.8 mL/dL (15.0-23.0); O2HB 90.8 % (95.0-99.0); PCO2(98.6) 38 mmHg (35-45); PO2(98.6) 62 mmHg (60-100); SAMPLE BLOOD; THB 8.4 g/dL (11.5-17.4); pH(98.6) 7.43 (7.35-7.45)
[2019-10-04 10:18] LABS: MODALITY HIGH FLOW NASAL CAN
[2019-10-04] MEDS ORDERED: LASIX IV ONE ×2 (15:27→21:00)
--- NOTE | 2019-10-04 18:55 | PROGRESS NOTE ---
DATE: 10/04/2019 SUBJECTIVE: The patient is sitting up in a chair. He is more short of breath today. He complains of swelling in his feet and hands. OBJECTIVE: Vital Signs: Temperature 97.4 degrees, blood pressure 144/115, heart rate 102, respirations 24, O2 saturation is 90% on high-flow oxygen. Intake 930. Output 1.1 L. General: This is an overweight male sitting in a chair, in no acute distress. Heart: S1, S2 normal. Tachycardic. Lungs: Equal air entry bilaterally. No wheezing. No rales. Abdomen: Positive bowel sounds. Soft, nontender, nondistended. Extremities: There is 1+ edema bilaterally. Neurologic: The patient is alert and oriented x4. LABS: White blood cell count 11, hemoglobin 8.1, hematocrit 26, platelets 65,000. Sodium 142, potassium 4.7, chloride 103, CO2 26, BUN 47, creatinine 1.1, glucose 153. Chest x-ray shows improved pulmonary edema. ASSESSMENT AND PLAN: 1. Acute hypoxemic respiratory failure. Continue with the current treatment regimen. 2. Acute interstitial pneumonia with bronchiectasis. Continue with antibiotics, high-dose steroid, supplemental oxygen, and bronchodilator therapy. Further management as per the sr. manager. 3. Leukocytosis. Improved. Continue with antibiotic therapy. 4. Pulmonary hypertension. Aware. 5. Testicular cancer, status post chemotherapy. Aware. 6. History of bleomycin exposure. Aware. 7. Thrombocytopenia. The platelet count is lower today. We will continue to monitor closely. 8. Hypertension. Continue on norvasc. cc: Capri Bronson MD [facility]
[2019-10-04] MEDS: LOMOTIL PO PRN (20:10)
[2019-10-05] MEDS: AZACTAM 1 GM in NS 50 ML IV SCH ×3 (01:28→17:17)
[2019-10-05] MEDS: SOLU-MEDROL IV SCH ×2 (01:28→08:44)
[2019-10-05] MEDS: DUONEB (A & A) INH SCH ×6 (03:24→23:31)
[2019-10-05 06:16] LABS: HEMATOCRIT 28.2 % (42.0-52.0); HEMOGLOBIN 8.5 g/dL (14.0-18.0); IMM GRAN# 0.07 X1000 (0.0-0.04); IMM GRAN% 0.7 % (0.0-0.5); LYMPH# 0.31 X1000 (1.2-3.4); MCH 28.9 PG (27-31); MCHC 30.1 g/dL (33-37); MCV 95.9 FL (81-99); MONO# 0.15 X1000 (0.11-0.59); MONO% 1.5 % (1.7-9.3); MPV 11.8 FL (7.4-10.4); NEUT# 9.68 X1000 (1.4-6.5); NEUT% 94.8 % (42.2-75.2); PLT 67 X1000 (130-400); RBC 2.94 XMIL (4.7-6.1); RDW 21.8 % (11.5-14.5); WBC 10.21 X1000 (4.8-10.8)
[2019-10-05 06:30] LABS: AGAP 14; BUN 47 mg/dL (8-22); CALCIUM 8.7 mg/dL (8.8-10.2); CHLORIDE 100 mmol/L (98-107); COSMO 295; ESTIMATED GFR > 60; GLUCOSE 163 mg/dL (70-104); POTASSIUM 4.3 mmol/L (3.5-5.1); SODIUM 140 mmol/L (136-145); TCO2 26 mmol/L (25-35)
--- NOTE | 2019-10-05 07:11 | Diag Imaging Result Doc PS360 ---
EXAM: CHEST-1 VIEW 10/05/2019 HISTORY: pulmonary edema/infiltrates TECHNIQUE: AP portable upright at 0516 COMMENT: There is alveolar pulmonary edema and/or pneumonia bilaterally. The heart size is enlarged. Compared to 10/04/2019 this has not changed appreciably. IMPRESSION: Pulmonary edema and/or pneumonia. Electronically signed by Rishabh Kan 10/05/2019 7:09 AM
--- NOTE | 2019-10-05 07:19 | PULMONOLOGY PROGRESS NOTE ---
DATE: 10/04/2019 SUBJECTIVE: The patient reports more shortness of breath over the last 24 hours along with increased swelling in his feet and legs. OBJECTIVE: Vital signs: The patient has been afebrile for the last 24 hours. Blood pressure 144/115, heart rate 102, respiratory rate 24, oxygen saturation 97%. HEENT: Pupils are equal and reactive. Oropharynx appears clear. Neck is supple. Chest reveals faint crackles bilaterally. Cardiac exam: S1, S2. Abdomen is soft and obese. Extremities reveal 1+ peripheral edema. LABORATORY DATA: Chest x-ray reveals cardiomegaly with vascular congestion with marginal improvement compared to 10/02/2019. Chemistry: Sodium 142, potassium 4.7, chloride 103, bicarbonate 26, BUN 47, creatinine 1.1. IMPRESSION: A 54-year-old with: 1. Significant coronary artery disease with mitral regurgitation. He is not a candidate for intervention short of bypass grafting. 2. Testicular cancer status post recent treatment with bleomycin. 3. Fluctuating pulmonary infiltrates with intermittent hemoptysis. 4. Acute hypoxemic respiratory failure. PLAN: 1. Continue oxygen and wean as tolerated. 2. Agree with dosing today. 3. Consider transitioning to oral steroid if he continues to improve. 4. Guarded prognosis. cc: Juventino Santos MD
[2019-10-05] MEDS: ASPIRIN PO SCH (08:44)
[2019-10-05] MEDS: TESSALON PO SCH (08:44)
[2019-10-05] MEDS: ZYVOX PO SCH ×2 (08:44→20:36)
[2019-10-05] MEDS: CALTRATE 600 + D PO SCH (08:44)
[2019-10-05] MEDS: COREG PO SCH ×2 (08:44→20:36)
[2019-10-05] MEDS: NORVASC PO SCH (08:44)
[2019-10-05] MEDS: MIRALAX PO SCH (08:45)
[2019-10-05] MEDS: LOMOTIL PO PRN ×2 (08:52→20:43)
[2019-10-05] MEDS ORDERED: PRILOSEC PO ONE (10:49)
--- NOTE | 2019-10-05 15:13 | PROGRESS NOTE ---
DATE: 10/05/2019 INTERVAL HISTORY: No acute events overnight. He has been saturating 90 to 93 percent on high- flow nasal cannula. He has normocytic anemia, stable thrombocytopenia, lactic acidosis which has been stable. We discussed about changing his intravenous steroids to oral. We also discussed about starting him on Lasix. We had an extensive discussion about his medical condition with him as well as his family at bedside. My discussion with Pulmonology team is currently pending. OBJECTIVE: Currently vital signs temperature 98 degrees, pulse of 61, respiratory rate 17, blood pressure 134/81. He is saturating to 90 to 93 percent on high-flow nasal cannula. Oral cavity is dry. Air entry bilaterally equal except decreased air entry with inspiratory crackles bilateral infrascapular region. S1, S2 normal. Mildly tachycardic. Not tachycardic. No murmur, rub, or gallop. Abdomen is soft nontender. Bilateral lower extremity edema extending up to knee levels. He is alert and oriented x3. He does appear short of breath in fact, he is intact, temperature is 97.5 degrees, pulse 97, respiratory 25, blood pressure 137/80, saturating 92% on high-flow nasal cannula. LABS: Suggestive of resolution of leukocytosis. 0% eosinophil count. His ABG yesterday has a lactic acidosis which has been an ongoing issue since 09/24/2019. His BMP is unremarkable except persistently elevated BUN. His proBNP is stable since presentation with almost 50% disk line. Blood culture no positive data. IMAGING: Chest x-ray suggests pulmonary edema and/or pneumonia. ASSESSMENT AND PLAN: 1. Acute hypoxic respiratory failure with bilateral lung infiltrate. Differential includes atypical pneumonia, bleomycin toxicity. He also has bronchiectasis. Continue supplemental high-flow nasal cannula oxygen, antibiotic therapy. Decrease intravenous steroid dose to oral steroid. His leukocytosis is improving. I will discuss with Pulmonology about discontinuing antibiotics in next 3 to 4 days time according to his course. 2. Testicular cancer status post chemotherapy with bleomycin exposure, aware. 3. History of coronary artery disease for which he was recommended medical management with mild mitral regurgitation and preserved left ventricular systolic function. Continue his home aspirin, carvedilol for essential hypertension, as well as amlodipine. 4. Others. Start patient on omeprazole for stress ulcer prophylaxis. Continue MiraLAX for constipation as needed and Lomotil for diarrhea. DISPOSITION: I counseled patient and his family at bedside about his stable clinical condition, though I also emphasized that he has not really improved since last 3 or 4 weeks. I answered all of their questions. cc: Ceferino Raymond MD
[2019-10-05] MEDS: PREDNISONE PO SCH (17:18)
[2019-10-05] MEDS: LASIX PO SCH (17:21)
[2019-10-06] MEDS: AZACTAM 1 GM in NS 50 ML IV SCH ×3 (01:59→17:08)
[2019-10-06] MEDS: DUONEB (A & A) INH SCH ×6 (03:40→23:06)
[2019-10-06] MEDS: PRILOSEC PO SCH (06:20)
[2019-10-06] MEDS: LASIX PO SCH ×2 (06:20→17:09)
[2019-10-06] MEDS: PREDNISONE PO SCH ×2 (06:20→17:08)
--- NOTE | 2019-10-06 06:44 | PULMONOLOGY PROGRESS NOTE ---
DATE: 10/05/2019 SUBJECTIVE: The patient reports had a good day. He has been decreased to 50% on his FiO2. OBJECTIVE: HEENT: Pupils are equal and reactive. Oropharynx appears clear. Neck: Supple. Chest: Reveals faint crackles in the lung bases. Cardiac: S1, S2. Abdomen: Obese and soft. EXTREMITIES: Reveal 1+ peripheral edema. LABORATORY DATA: White blood count 10.21, hemoglobin 8.5, platelet count 67,000. Sodium 140, potassium 4.3, chloride 100, bicarbonate 26, BUN 47, creatinine 1.0. IMPRESSION: 1. Acute hypoxemic respiratory failure. 2. Fluctuating infiltrates with intermittent hemoptysis. He has not had hemoptysis in the last week. 3. Testicular cancer status post treatment with bleomycin. 4. Coronary artery disease with mitral regurgitation. His cardiac catheterization was reviewed this admission and is he is not a candidate for cardiac stenting. PLAN: 1. Agree with oral steroids. Would decrease his dose to 60 mg per day. 2. Wean oxygen as tolerated. 3. Discharge home when his oxygen requirements have diminished an acceptable amount for discharge. cc: Juventino Santos MD
[2019-10-06] MEDS: ZYVOX PO SCH (08:19)
[2019-10-06] MEDS: NORVASC PO SCH (08:19)
[2019-10-06] MEDS: CALTRATE 600 + D PO SCH (08:19)
[2019-10-06] MEDS: COREG PO SCH ×2 (08:19→20:39)
[2019-10-06] MEDS: MIRALAX PO SCH (08:19)
[2019-10-06] MEDS: ASPIRIN PO SCH (08:24)
[2019-10-06] MEDS: LOVENOX SUBQ SCH (20:39)
[2019-10-06] MEDS: LOMOTIL PO PRN (20:44)
[2019-10-07] MEDS: DUONEB (A & A) INH SCH ×6 (03:18→22:49)
--- NOTE | 2019-10-07 04:42 | PROGRESS NOTE ---
DATE: 10/06/2019 INTERVAL HISTORY: No acute events overnight. He remained comfortable on high-flow nasal cannula. He denies new symptoms. I had a discussion with Pulmonology team about his condition. I answered all of his questions. SUBJECTIVE: Vital signs: Temperature 98.6 degrees, pulse 96, respiratory rate 18, blood pressure 139/87, saturating 89% to 92% on high-flow nasal cannula. On physical examination, obese, not in acute distress. Oral cavity is moist. Air entry bilaterally equal. No wheeze or rhonchi. Vesicular breath sounds in bilateral infrascapular region. S1, S2 normal. No murmur or gallop. Abdomen is soft, nontender. Bilateral lower extremity edema, extending up to knee level. He is alert and oriented x3. Input and output suggest -2.8 L yesterday. DIAGNOSTIC DATA: Labs suggestive of no CBC or BMP today. No new chest x-ray today. ASSESSMENT: 1. Acute hypoxic respiratory failure with bilateral lung infiltrate. 2. Testicular cancer with bleomycin exposure. 3. History of coronary artery disease, managed medically with mild mitral regurgitation and preserved left ventricular systolic function. PLAN: Stop intravenous antibiotics. Continue to taper. Continue oral steroids. Continue his home antihypertensive and coronary artery disease medication, including amlodipine, carvedilol and aspirin. DISPOSITION: His condition and prognosis are guarded. Continue to monitor in P[facility]. Plan of care discussed with him. cc: Ceferino Raymond MD
[2019-10-07] MEDS: PRILOSEC PO SCH (06:06)
[2019-10-07] MEDS: LASIX PO SCH ×2 (06:06→17:20)
--- NOTE | 2019-10-07 07:13 | Diag Imaging Result Doc PS360 ---
EXAM: CHEST-PORTABLE 10/07/2019 HISTORY: abnormal exam TECHNIQUE: AP portable upright at 0508 COMMENT: There is interstitial and alveolar opacity in the lung bases consistent with pulmonary edema. The heart size appears to be enlarged. Compared to 10/05/2019 there has been slight improvement and the right hemidiaphragm is now largely visible. IMPRESSION: Improved pulmonary edema. Electronically signed by Rishabh Kan 10/07/2019 7:10 AM
[2019-10-07] MEDS: CALTRATE 600 + D PO SCH (08:07)
[2019-10-07] MEDS: COREG PO SCH ×2 (08:07→21:13)
[2019-10-07] MEDS: NORVASC PO SCH (08:07)
[2019-10-07] MEDS: PREDNISONE PO SCH (08:07)
[2019-10-07] MEDS: ASPIRIN PO SCH (08:07)
[2019-10-07] MEDS: MIRALAX PO SCH (08:08)
[2019-10-07] MEDS: LOMOTIL PO PRN ×2 (08:10→21:13)
--- NOTE | 2019-10-07 08:50 | PULMONOLOGY PROGRESS NOTE ---
DATE: 10/06/2019 SUBJECTIVE: The patient is awake, alert, and conversant. He reports he has had a good day. He reports his oxygen requirements have decreased below 40%. OBJECTIVE: HEENT: Pupils are equal and reactive. Oropharynx appears clear. Neck: Supple. Chest: Reveals crackles in the lung bases. Cardiac: S1, S2. Abdomen: Obese and soft. Extremities: Reveal 1+ peripheral edema. IMPRESSION: 1. A 54-year-old with acute hypoxemic respiratory failure. 2. Coronary artery disease with episodes of acute pulmonary edema. 3. Testicular cancer with recent exposure to bleomycin. 4. Intermittent hemoptysis with subsequent resolution. 5. Elevated C-reactive protein with normalization on steroids. PLAN: 1. Continue to keep patient as dry as possible. 2. Continue oxygen. Minimize concentrations given prior bleomycin exposure. 3. Check C-reactive protein. We will attempt to follow C-reactive protein for steroid weaning. 4. Prognosis remains guarded. cc: Juventino Santos MD
--- NOTE | 2019-10-07 11:43 | PROGRESS NOTE ---
DATE: 10/07/2019 INTERVAL HISTORY: No acute events overnight. His oxygen levels were stable and his high-flow nasal cannula was titrated down to 30%. SUBJECTIVE: He states he sleeps in the chair. Denies unusual chest pain, shortness of breath or cough. Denies any hemoptysis. VITAL SIGNS: Temperature 98.3 degrees, pulse 87, respiratory 20, blood pressure 140/90, saturating 92% on 25 L 30% high-flow nasal cannula. PHYSICAL EXAMINATION: General: Obese, not in acute distress. HEENT: Oral cavity is moist. Lungs: Air entry bilaterally equal. No wheeze or rhonchi. Inspiratory crackles, infrascapular region. Abdomen: Obese, soft, nontender. Extremities: Bilateral lower extremity edema extending up to knee. Neurologic: He is alert oriented x3. Cardiovascular: S1, S2 normal. No murmur or gallop. LABORATORY DATA: No CBC or BMP so far today. IMAGING: Chest x-ray suggests improvement in pulmonary edema. ASSESSMENT AND PLAN: 1. Acute hypoxic respiratory failure with bilateral lung infiltrate. 2. Testicular cancer with bleomycin exposure. 3. History of coronary artery disease, managed medically. 4. Essential hypertension. PLAN: Continue patient on high-flow nasal cannula oxygen and wean down as tolerated. He is status post antibiotics. I will keep him on current dose of oral steroids. I will continue antihypertensive treatment with coronary artery disease treatment with aspirin, carvedilol, furosemide and amlodipine. DISPOSITION: Continue to monitor patient in PVC unit. Plan of care discussed with him. His questions have been answered. cc: Ceferino Raymond MD
[2019-10-07] MEDS: LOVENOX SUBQ SCH (21:13)
[2019-10-07 22:41] LABS: AGAP 15; BASO# 0.01 X1000 (0.0-0.2); BASO% 0.1 % (0.0-0.8); BUN 49 mg/dL (8-22); C REACTIVE PROT QUANT 1.99 mg/L (0.00-5.00); CALCIUM 8.6 mg/dL (8.8-10.2); CHLORIDE 100 mmol/L (98-107); COSMO 298; CREATININE 1.1 mg/dL (0.7-1.2); ESTIMATED GFR > 60; GLUCOSE 163 mg/dL (70-104); HEMATOCRIT 27.4 % (42.0-52.0); HEMOGLOBIN 8.4 g/dL (14.0-18.0); IMM GRAN# 0.05 X1000 (0.0-0.04); IMM GRAN% 0.3 % (0.0-0.5); LYMPH# 0.56 X1000 (1.2-3.4); LYMPH% 3.9 % (20.5-51.1); MCH 29.8 PG (27-31); MCHC 30.7 g/dL (33-37); MCV 97.2 FL (81-99); MONO# 0.54 X1000 (0.11-0.59); MONO% 3.7 % (1.7-9.3); MPV 10.9 FL (7.4-10.4); NEUT# 13.36 X1000 (1.4-6.5); PLT 57 X1000 (130-400); POTASSIUM 4.5 mmol/L (3.5-5.1); RBC 2.82 XMIL (4.7-6.1); RDW 22.4 % (11.5-14.5); SODIUM 141 mmol/L (136-145); TCO2 26 mmol/L (25-35); WBC 14.52 X1000 (4.8-10.8)
[2019-10-07 23:27] LABS: LYMPHS 4 % (21-51); MONO 1 % (1-9); SEGS 95 % (42-75)
[2019-10-07 23:28] LABS: ANISOCYTOSIS 2+; HYPOCHROM 2+; POLYCHROM OCCASIONAL
--- NOTE | 2019-10-08 03:01 | PULMONOLOGY PROGRESS NOTE ---
DATE: 10/07/2019 SUBJECTIVE: The patient is awake and alert. He has been transitioned to nasal cannula. He has been afebrile for the last 24 hours. Blood pressure 124/66, heart rate 97, respiratory rate 24, oxygen saturation 92%. OBJECTIVE: HEENT: Pupils are equal and reactive. Oropharynx appears clear. Neck: Supple. Chest: Reveals bilateral crackles. Cardiac: S1-S2. Abdomen: Soft. Extremities: Reveal 1+ peripheral edema. LABORATORIES: Chest x-ray reveals cardiomegaly with some decreased infiltrates right greater than left base. Laboratories not obtained this morning for unknown reasons. IMPRESSION: 1. A 54-year-old with acute hypoxemic respiratory failure. 2. Coronary artery disease with episodes of acute pulmonary edema, possibly ischemia or hypoxemia related. 3. Testicular cancer with exposure to bleomycin. 4. Intermittent hemoptysis with subsequent resolution. 5. Elevated C-reactive protein 18, which has normalized on steroids. PLAN: 1. Recheck C-reactive protein tomorrow. 2. Diuresis as tolerated. Followup labs scheduled for tomorrow. 3. Minimize oxygen use. 4. Prognosis is guarded, but he does appear to be improving again. cc: Juventino Santos MD
[2019-10-08] MEDS: DUONEB (A & A) INH SCH ×6 (03:12→22:32)
[2019-10-08] MEDS: LASIX PO SCH ×2 (06:09→17:31)
[2019-10-08] MEDS: PRILOSEC PO SCH (06:09)
--- NOTE | 2019-10-08 08:24 | Diag Imaging Result Doc PS360 ---
EXAM: CHEST-2 VIEWS HISTORY: abnormal exam TECHNIQUE: Two views COMPARISON: 10/07/2019 FINDINGS: The lungs are well expanded. There are infiltrates in the mid and lower lungs. Heart is mildly prominent. Small effusions. IMPRESSION: Mild worsening in the bilateral infiltrates Electronically signed by Alan Garcia 10/08/2019 8:21 AM
[2019-10-08] MEDS: PREDNISONE PO SCH (09:05)
[2019-10-08] MEDS: ASPIRIN PO SCH (09:05)
[2019-10-08] MEDS: CALTRATE 600 + D PO SCH (09:05)
[2019-10-08] MEDS: NORVASC PO SCH (09:05)
[2019-10-08] MEDS: COREG PO SCH ×2 (09:05→21:14)
[2019-10-08] MEDS: MIRALAX PO SCH (09:07)
--- NOTE | 2019-10-08 12:44 | PROGRESS NOTE ---
DATE: 10/08/2019 INTERVAL HISTORY: No acute events overnight. SUBJECTIVE: He is feeling the same. Denies new complaints. Denies undue cough. The patient's shortness of breath appears to be baseline. OBJECTIVE: VITAL SIGNS: Currently temperature of 97.9 degrees, pulse 98, respiratory rate 22, blood pressure 120/70, saturating 89% on 50% high-flow nasal cannula. PHYSICAL EXAMINATION: Lungs: He has inspiratory crackles with vesicular breath sounds bilateral bases. No wheezes. Cardiovascular: S1, S2 normal. No murmur, rub, or gallop. Abdomen: Obese, soft. There is what appears to be subcutaneous hematoma in the lower part of her abdomen that I could palpate. Nontender. Active bowel sounds. Extremities: Bilateral lower extremity edema. Neurological: He is alert and oriented x3. He appears a little more short of breath today than yesterday. LABORATORY DATA: There is no CBC or BMP today. No new data. His chest x-ray is pending. ASSESSMENT: 1. Acute hypoxic respiratory failure with bilateral lung infiltrate, on high-flow nasal cannula now. 2. Testicular cancer with bleomycin exposure. 3. History of coronary artery disease, managed medically. 4. Essential hypertension. PLAN: 1. Continue to manage with oxygenation, steroids for his lung infiltrate. 2. Continue amlodipine for essential hypertension and furosemide for bilateral lower extremity edema. DISPOSITION: Continue to monitor patient in PVC unit. His condition and prognosis are guarded. cc: Ceferino Raymond MD
[2019-10-08] MEDS: LOVENOX SUBQ SCH (21:14)
[2019-10-09] MEDS: DUONEB (A & A) INH SCH ×6 (03:13→22:49)
[2019-10-09 06:00] LABS: EOS# 0.08 X1000 (0.0-0.7); EOS% 0.8 % (0.0-10.0); HEMOGLOBIN 7.3 g/dL (14.0-18.0); IMM GRAN# 0.03 X1000 (0.0-0.04); IMM GRAN% 0.3 % (0.0-0.5); LYMPH# 1.05 X1000 (1.2-3.4); LYMPH% 10.5 % (20.5-51.1); MCH 29.8 PG (27-31); MCHC 30.4 g/dL (33-37); MONO# 0.35 X1000 (0.11-0.59); MONO% 3.5 % (1.7-9.3); MPV 12.5 FL (7.4-10.4); NEUT# 8.45 X1000 (1.4-6.5); NEUT% 84.9 % (42.2-75.2); PLT 51 X1000 (130-400); RBC 2.45 XMIL (4.7-6.1); RDW 22.4 % (11.5-14.5); WBC 9.96 X1000 (4.8-10.8)
[2019-10-09 06:20] LABS: AGAP 11; BUN 42 mg/dL (8-22); CALCIUM 8.5 mg/dL (8.8-10.2); CHLORIDE 100 mmol/L (98-107); COSMO 288; CREATININE 0.9 mg/dL (0.7-1.2); ESTIMATED GFR > 60; GLUCOSE 97 mg/dL (70-104); POTASSIUM 4.3 mmol/L (3.5-5.1); SODIUM 139 mmol/L (136-145); TCO2 28 mmol/L (25-35)
[2019-10-09] MEDS: LASIX PO SCH ×2 (06:33→17:00)
[2019-10-09] MEDS: PRILOSEC PO SCH (06:33)
[2019-10-09] MEDS ORDERED: LASIX IV ONE (08:27)
[2019-10-09] MEDS: PREDNISONE PO SCH (09:17)
[2019-10-09] MEDS: CALTRATE 600 + D PO SCH (09:17)
[2019-10-09] MEDS: NORVASC PO SCH (09:17)
[2019-10-09] MEDS: MIRALAX PO SCH (09:17)
[2019-10-09] MEDS: ASPIRIN PO SCH (09:18)
[2019-10-09] MEDS: COREG PO SCH ×2 (09:18→20:30)
--- NOTE | 2019-10-09 10:27 | Diag Imaging Result Doc PS360 ---
EXAM: CHEST-PORTABLE INDICATION: dyspnea TECHNIQUE: One view COMPARISON: 10/08/2019 FINDINGS: Dense interstitial and airspace infiltrates with a basilar predominance are again identified. They are approximately stable given differences in exposure. No new consolidation is identified. Cardiac silhouette is stable. IMPRESSION: Grossly stable chest. Electronically signed by Terry Jackson 10/09/2019 10:25 AM
[2019-10-09] MEDS ORDERED: MORPHINE IV ONE (10:55)
--- NOTE | 2019-10-09 13:38 | PROGRESS NOTE ---
DATE: 10/09/2019 OVERNIGHT EVENTS: In the morning time, I was asked by the nurse to immediately evaluate him as his oxygen saturations were low. I saw him. He is on high-flow nasal cannula, his oxygen levels were increased up to 100%. Still, his SpO2 was down to consistently in the 70s. He did not have any specific symptoms except he appeared a little drowsy. He did not feel unusual shortness of breath. We tried a non-rebreather mask, but his oxygen levels dropped further into 70s so it was decided to start him on BiPAP. After starting him on BiPAP, his oxygen saturations are increased and now consistently in 90s. We will keep him on BiPAP for now and will titrate the FiO2 down as per his SpO2 with a goal of keeping it around 90%. OBJECTIVE: VITAL SIGNS: Temperature 98.3 degrees, pulse 101, respiratory 24, blood pressure 120/60, saturating currently 95% on 100% BiPAP. PHYSICAL EXAMINATION: HEENT: Oral cavity was moist. Lungs: He does have inspiratory crackles bilateral infrascapular region with vesicular breath sounds. Cardiovascular: S1, S2 is normal. No murmur, rub or gallop. Abdomen: Soft, nontender. Extremities: Bilateral lower extremity edema. LABORATORY DATA: Suggestive of worsening thrombocytopenia, normocytic anemia, normal electrolytes. MICROBIOLOGICAL DATA: No positive new microbiology data. IMAGING: No new imaging. ASSESSMENT: 1. Acute hypoxic respiratory failure due to bilateral lung infiltrate, on BiPAP now. 2. Testicular cancer with bleomycin exposure. 3. History of coronary artery disease, managed medically. 4. Essential hypertension. 5. Intermittent hemoptysis with thrombocytopenia PLAN: 1. Continue BiPAP and we will wean down onto high-flow nasal cannula in the future as tolerated. I will give him additional dose of intravenous Lasix and continue oral Lasix for now. 2. I will continue to manage his hypertension with amlodipine, aspirin, as- needed hydralazine. He is on prednisone as well. DISPOSITION: Monitor patient in [facility]. cc: Ceferino Raymond MD MTDD
[2019-10-09] MEDS: LOVENOX SUBQ SCH (20:29)
--- NOTE | 2019-10-10 02:26 | PULMONOLOGY PROGRESS NOTE ---
DATE: 10/09/2019 SUBJECTIVE: The patient reports he is fatigued. The patient was sleeping today and his high-flow oxygen became discontinued. He subsequently developed chest pain when his oxygen saturation dropped into the 70s. He has started to recover and his oxygen saturation is now in the mid 90s. His chest pain has resolved. OBJECTIVE: Vital Signs: Blood pressure 121/77, heart rate 101, respiratory rate 24, oxygen saturation 90% on 50% high-flow O2. HEENT: Pupils are equal and reactive. Oropharynx appears clear. Neck: Supple. Chest: Reveals crackles in both lung bases. Cardiac: S1, S2. Abdomen: Obese and soft. Extremities: Without edema. LABORATORIES: Sodium 139, potassium 4.3, chloride 100, bicarbonate 28, BUN 42, creatinine 0.8. Troponin levels are negative. IMPRESSION: A 54-year-old with: 1. Acute hypoxemic respiratory failure. 2. Recurrent pulmonary infiltrates. 3. Recent bleomycin exposure. 4. Elevated C-reactive protein with normalization on steroids. 5. Coronary artery disease. Not a candidate for stenting. I suspect when his oxygen saturation drops into the 70s, he develops hypoxemia-induced coronary ischemia. PLAN: 1. Continue current steroid dose. He only has mild elevation in C-reactive protein at 7.24. 2. Continue oxygen to maintain saturations greater than 90%, but no higher with history of bleomycin exposure. 3. This is hospital day 30 without clinical improvement. The patient's prognosis is poor. cc: Juventino Santos MD
[2019-10-10] MEDS: DUONEB (A & A) INH SCH ×2 (03:38→08:46)
[2019-10-10 04:37] VITALS: BP 135/83
[2019-10-10] MEDS: LASIX PO SCH (06:03)
[2019-10-10] MEDS: PRILOSEC PO SCH (06:03)
[2019-10-10 07:09] LABS: ALLEN TEST YES; BE -4.6 mmoll (-3.0-3.0); BLOOD TYPE ARTERIAL; HCO3-(ACT) 20.9 mmoll (20.0-26.0); METHB 1.2 % (0.0-1.5); O2(CT) 7.7 mL/dL (15.0-23.0); PCO2(98.6) 64 mmHg (35-45); SAMPLE BLOOD; SAO2 68.9 % (95.0-100.0); THB 8.1 g/dL (11.5-17.4)
[2019-10-10] MEDS ORDERED: VERSED ONE (07:11)
[2019-10-10] MEDS ORDERED: SOLU-MEDROL IV ONE (07:11)
[2019-10-10] MEDS ORDERED: LASIX IV ONE (07:11)
[2019-10-10 07:12] LABS: PO2(98.6) 43 mmHg (60-100); pH(98.6) 7.18 (7.35-7.45)
[2019-10-10] MEDS ORDERED: QUELICIN ONE (07:12)
[2019-10-10] MEDS ORDERED: NORCURON ONE (07:12)
[2019-10-10] MEDS ORDERED: AMIDATE ONE (07:12)
[2019-10-10 07:13] LABS: MODALITY BI PAP; O2HB 66.8 % (95.0-99.0)
[2019-10-10] MEDS ORDERED: LASIX ONE (07:18)
[2019-10-10] MEDS ORDERED: SOLU-MEDROL ONE (07:23)
[2019-10-10] MEDS ORDERED: VERSED IV ONE (07:33)
--- NOTE | 2019-10-10 07:42 | Diag Imaging Result Doc PS360 ---
EXAM: CHEST-PORTABLE INDICATION: sob TECHNIQUE: One view COMPARISON: 10/09/2019 FINDINGS: The dense infiltrates throughout both lungs with a basilar predominance have worsened overall. There is overall increased opacity in the mid and upper lung zones as compared to the previous study. No other new consolidation is identified. Cardiac silhouette is stable. IMPRESSION: Interval worsening as described. Electronically signed by Terry Jackson 10/10/2019 7:40 AM
[2019-10-10 07:44] LABS: BASO# 0.08 X1000 (0.0-0.2); BASO% 0.5 % (0.0-0.8); EOS# 0.25 X1000 (0.0-0.7); EOS% 1.4 % (0.0-10.0); HEMATOCRIT 24.4 % (42.0-52.0); HEMOGLOBIN 7.5 g/dL (14.0-18.0); LYMPH# 2.69 X1000 (1.2-3.4); LYMPH% 15.2 % (20.5-51.1); MCH 31.5 PG (27-31); MCHC 30.7 g/dL (33-37); MCV 102.5 FL (81-99); MONO# 0.81 X1000 (0.11-0.59); MONO% 4.6 % (1.7-9.3); MPV 11.7 FL (7.4-10.4); NEUT# 13.82 X1000 (1.4-6.5); NEUT% 78.3 % (42.2-75.2); PLT 54 X1000 (130-400); RBC 2.38 XMIL (4.7-6.1); RDW 22.9 % (11.5-14.5); WBC 17.65 X1000 (4.8-10.8)
[2019-10-10 07:59] LABS: AGAP 18; ALB/GLOB RATIO 1.7; ALBUMIN 3.5 g/dL (3.5-5.0); ALKALINE PHOSPHATASE 88 U/L (32-122); BUN 41 mg/dL (8-22); CALCIUM 8.7 mg/dL (8.8-10.2); CHLORIDE 96 mmol/L (98-107); COSMO 294; CREATININE 1.1 mg/dL (0.7-1.2); ESTIMATED GFR > 60; GLUCOSE 246 mg/dL (70-104); GOT 76 U/L (10-34); GPT 41 U/L (10-44); POTASSIUM 5.6 mmol/L (3.5-5.1); SODIUM 138 mmol/L (136-145); TCO2 24 mmol/L (25-35); TOTAL BILIRUBIN 2.22 mg/dL (0.20-1.00); TOTAL PROTEIN 5.6 g/dL (6.3-8.3)
--- NOTE | 2019-10-10 08:10 | Diag Imaging Result Doc PS360 ---
EXAM: CHEST-PORTABLE INDICATION: code TECHNIQUE: One view COMPARISON: 10/10/2019 FINDINGS: There has been interval placement of an ET tube. The tip projects over the trachea and above the fiorella at about the T3 level. Dense bilateral infiltrates, more extensive on the right, are stable. No new consolidation is identified. Cardiac silhouette is stable. IMPRESSION: Interval intubation as described. Stable chest, otherwise. Electronically signed by Terry Jackson 10/10/2019 8:07 AM
--- NOTE | 2019-10-10 08:24 | PROVIDER PROGRESS NOTE ---
Progress Note 10/10/2019 0817 ED note: Called to Pt room for intubation. Pt was noted to have possible pneumonitis with sats 40-50%. Pt was intubated with 7.5 ET tube first try. There were good bilateral breath sounds and CO2 detector color change. Sats came up to 80%. Pt shortly after went into cardiac arrest. Pulse was regained after several rounds CPR using ACLS protocol. Dr Raymond spoke with family who asked if pulse lost that no further CPR be given. Pt went back into cardiac arrest several mins later and code called by Dr Raymond. Dr Kurtz
[2019-10-10 10:28] LABS: BANDS 6 % (0-1); LARGE PLATELETS 1+; LYMPHS 16 % (21-51); MONO 2 % (1-9); SEGS 74 % (42-75)
--- NOTE | 2019-10-10 14:33 | EKG Report ---
Test Performed on : 10/10/2019 06:57:45 AM Test Reason : sob Blood Pressure : / mmHG Vent. Rate : 142 BPM Atrial Rate : 150 BPM P-R Int : 000 ms QRS Dur : 098 ms QT Int : 280 ms P-R-T Axes : 000 007 088 degrees QTc Int : 430 ms Critical Test Result: High HR Atrial fibrillation. with rapid ventricular response. Low voltage QRS ST & T wave abnormality, consider lateral ischemia Abnormal ECG When compared with ECG of 09-OCT-2019 10:48, (Unconfirmed) Atrial fibrillation. has replaced Sinus rhythm. Left anterior fascicular block is no longer present Minimal criteria for Inferior infarct are no longer present Nonspecific T wave abnormality no longer evident in Inferior leads Confirmed by Fede CORRAL, P.J.M ([id number]) on 10/11/2019 6:31:37 PM
--- NOTE | 2019-10-10 14:36 | EKG Report ---
Test Performed on : 10/09/2019 10:48:53 AM Test Reason : Chest Pain Blood Pressure : / mmHG Vent. Rate : 096 BPM Atrial Rate : 096 BPM P-R Int : 152 ms QRS Dur : 084 ms QT Int : 358 ms P-R-T Axes : 078 -53 133 degrees QTc Int : 452 ms Normal sinus rhythm. Left anterior fascicular block Cannot rule out Inferior infarct , age undetermined ST & T wave abnormality, consider lateral ischemia Abnormal ECG When compared with ECG of 25-SEP-2019 06:24, Left anterior fascicular block is now present Minimal criteria for Inferior infarct are now present Nonspecific T wave abnormality now evident in Inferior leads Nonspecific T wave abnormality, improved in Lateral leads Confirmed by Fede CORRAL, P.J.M ([id number]) on 10/11/2019 6:30:41 PM
--- NOTE | 2019-10-11 05:33 | DISCHARGE SUMMARY ---
ADMISSION DATE: 09/09/2019 DISCHARGE DATE: 10/10/2019 CAUSE OF : 1. Acute hypoxic respiratory failure. 2. Bilateral pneumonia. 3. Bleomycin toxicity. TIME OF : 08:06 in the morning. HOSPITAL COURSE SUMMARY: Mr. Ayon is a 54-year-old man with past medical history of coronary artery disease, managed medically, testicular cancer with bleomycin exposure who initially came in on 09/10/2019 with chief complaints of shortness of breath and hemoptysis. He was initially admitted in ICU and was treated for acute hypoxic respiratory failure. During this hospitalization, he was intermittently on antibiotics for suspected bacterial pneumonia. He received intermittent Lasix to treat for suspected pulmonary edema. He was also on steroids for suspected bleomycin lung toxicity. He has had fluctuating course with his shortness of breath, hypoxia and hemoptysis. He was later on transferred to [facility] but had to be transferred back to ICU. On 10/09/2019, he had an episode of desaturation, and he was transitioned from high-flow nasal cannula to 100% BiPAP. Overnight, he was kept on BiPAP. At the time of shift change at about 7:00 in the morning, he was found to be gasping for air and his saturations were low 60s so CAT call was called. When I arrived at the scene, the patient was found to be having oxygen saturation of 60s to 70s, and he had increased work of breathing despite being on BiPAP with ABG suggestive of profound hypoxia and hypercarbia so the ER team was called for intubation. He was intubated, however, after intubation there was initially a challenging time when his saturations were not detected appropriately, and probes were changed multiple times. At that time, he also lost his pulse so cardiopulmonary resuscitation was initiated according to ACLS protocol. With initial resuscitation of about 10 minute or so, he had return of spontaneous circulation and his saturations were also detectable after bag-mask ventilation. However, about 5 to 10 minutes later, again, he became bradycardic and lost his pulse so cardiopulmonary resuscitation was initiated. Multiple times during resuscitation, he had pulseless electrical activity. The patient's family was informed about this, and they were in the hospital. I went there and informed her about patient's critical condition and the fact that we had been resuscitating him for in total more than 20 minutes, the chances for neurological recovery was less at that time. She had expressed to let him go if we were not able to find a pulse. so CPR was continued. However, despite that, he did not have any return of spontaneous circulation so Code was called off. I went and expressed my condolences to his family. cc: Ceferino Raymond MD MTDD
== END 2019-10-10 09:30 | disposition expired | DRG 291 ==
LOC: P.ED 16:53 → SUATTDRO 23:27 → ICU 23:27 → 2N 09-14 00:50 → ICU 09-24 05:57 → 2N 09-30 14:46
PROVIDERS: ATTEND Internal Medicine